=== PATIENT | female | born 1955 | race Caucasian/White ===

== ENCOUNTER → 2018-03-01 14:35 | Outpatient (CLI) | payer MEDICARE, MEDICAID, SELFPAY ==
[2018-03-01 16:10] LABS: Free T4 (Free Thyroxine) 1.41 ng/dl (0.76-1.46)
[2018-03-01 16:27] LABS: Thyroid Stimulating Hormone < 0.01 uIU/ml (0.358-3.740)
[2018-03-04 06:25] LABS: Thyroid Peroxidase Antibodies 26 IU/mL (0-34)
[2018-03-04 15:24] LABS: Thyroid Stimulating Immunoglob 1.42 IU/L (0.00-0.55)
== END ==
PROVIDERS: Visit Provider Otolaryngology
DX: E04.1 Nontoxic single thyroid nodule (principal); E03.9 Hypothyroidism, unspecified
CPT/HCPCS: 36415; 83520; 84439; 84443; 86376

== ENCOUNTER → 2018-09-10 10:38 | Outpatient (CLI) | payer MEDICARE, SELFPAY ==
--- NOTE | 2018-09-10 10:42 | US_ITS ---
US thyroid HISTORY: Follow-up thyroid nodules ITS.REASON: goiter ORDERING PHYSICIAN: Faraz Velasco MD PATIENT AGE: 63 years Comparison: None FINDINGS: There are no previous exams available for comparison at this institution Right lobe: 4.3 x 1.5 x 1.3 cm Nodule A: 3 mm hypoechoic nodule in the mid polar region Nodule B: 5 x 5 mm isoechoic area in the lower pole with a thin hypoechoic rim. Left lobe: 3.8 x 1.3 x 1.2 cm IMPRESSION: There are 2 small nodules on the right which have low level of suspicion of malignancy.
[2018-09-10 14:00] LABS: Free T4 (Free Thyroxine) 1.06 ng/dl (0.76-1.46); Thyroid Stimulating Hormone 0.42 uIU/ml (0.358-3.740)
== END ==
PROVIDERS: PCP Nurse Practitioner Family; Visit Provider Otolaryngology
DX: E03.9 Hypothyroidism, unspecified (principal); E04.1 Nontoxic single thyroid nodule; E04.9 Nontoxic goiter, unspecified
CPT/HCPCS: 36415; 76536; 84439; 84443

== ENCOUNTER → 2019-07-08 09:51 | Outpatient (CLI) | payer MEDICARE, SELFPAY ==
--- NOTE | 2019-07-08 09:58 | MM_ITS ---
PROCEDURE: MM DIG SCREENING MAMM BI W/CAD CLINICAL INDICATION: SCREENING There is no personal or family history of breast cancer. There has been a previous biopsy left breast for benign disease. COMPARISON: MAMMO SCREENING DIGITAL BILAT from 10/24/2014 MAMMO SCREENING DIGITAL BILAT from 11/09/2015 TECHNIQUE: Standard CC and MLO images were obtained. R2 CAD reviewed. FINDINGS: The breasts are composed primarily of fat with minimal fibroglandular elements in the subareolar regions of each breast. There is no new or suspicious lesion in either breast and no suspicious microcalcifications. IMPRESSION: Fatty type breast parenchyma with no suspicious lesions seen BI-RAD Category: 1 Negative FOLLOW-UP: 1YR 1 Year Follow-up (A letter has been sent to the patient regarding results of the study.) Dictated by: Dr. Randolph Reno MD 07/15/2019 08:[address] Randolph Reno MD in [place] 07/15/2019 08:22
--- NOTE | 2019-07-08 10:34 | US_ITS ---
PROCEDURE: US THYROID CLINICAL INDICATION: FU THYROID NODULE Follow-up thyroid nodule COMPARISON: THY US thyroid from 09/10/2018 FINDINGS: Right lobe: 3.8 x 1.3 x 1.5 cm. No discrete nodule evident. Previously noted hypoechoic nodule in the mid upper pole region is not apparent on today's images Left lobe: 3.6 x 1.6 x 1.3 cm. No discrete nodule evident. Isthmus: Unremarkable Additional findings: IMPRESSION: Unremarkable thyroid ultrasound. Previously noted nodules on the right are no longer apparent Dictated by: Tom Knight MD 07/08/2019 18:17 Electronically signed by Tom Knight MD in [facility] 07/08/2019 18:17
== END ==
PROVIDERS: PCP Nurse Practitioner Family; Visit Provider Nurse Practitioner Family
DX: Z12.31 Encounter for screening mammogram for malignant neoplasm of breast (principal); E04.1 Nontoxic single thyroid nodule
CPT/HCPCS: 76536; 77067

== ENCOUNTER → 2020-05-11 16:09 | Outpatient (CLI) | payer MEDICARE, SELFPAY | PROVIDERS: Visit Provider Urology | DX: N39.0 Urinary tract infection, site not specified (principal) | CPT/HCPCS: 87086; 87088; 87186 ==

== ENCOUNTER → 2020-11-23 07:47 | Outpatient (CLI) | payer MEDICARE, SELFPAY ==
--- NOTE | 2020-11-23 07:50 | MM_ITS ---
PROCEDURE: MM DIG SCREENING MAMM BI W/CAD Digital Breast Tomosynthesis Included CLINICAL INDICATION: SCREENING There is no personal or family history of breast cancer. There has been a previous biopsy left breast for benign disease. COMPARISON: MG MAMMO SCREENING DIGITAL BILAT from 10/24/2014 MG MAMMO SCREENING DIGITAL BILAT from 11/09/2015 MG MM DIG SCREENING MAMM BI W/CAD from 07/08/2019 TECHNIQUE: Standard CC and MLO images and 3D Tomosynthesis was obtained. R2 CAD reviewed. FINDINGS: Scattered fibroglandular densities are seen in both breasts. The findings are bilateral and symmetrical except for minimal stable asymmetric glandular elements deep to the nipple right breast. There are no CAD markings. There are stable small nodes in both axilla. There is no suspicious lesion and no suspicious microcalcifications. IMPRESSION: Fibrofatty parenchyma with no suspicious lesions seen BI-RAD Category: 1 Negative FOLLOW-UP: 1YR 1 Year Follow-up (A letter has been sent to the patient regarding results of the study.) Dictated by: Dr. Randolph Reno MD 11/26/2020 08:32 Dr. Randolph Reno MD in [place] 11/26/2020 08:32
== END ==
PROVIDERS: PCP Nurse Practitioner Family; Visit Provider Nurse Practitioner Family
DX: Z12.31 Encounter for screening mammogram for malignant neoplasm of breast (principal)
CPT/HCPCS: 77063; 77067

== ENCOUNTER → 2021-03-01 09:24 | Outpatient (CLI) | payer MEDICARE, SELFPAY ==
--- NOTE | 2021-03-01 09:28 | XR_ITS ---
PROCEDURE: XR CHEST 2V CLINICAL HISTORY: COPD W/ ACUTE EXACERBATION COMPARISON: No exams were available for comparison FINDINGS: The cardiomediastinal silhouette and pulmonary vascularity are within normal limits. The lungs are clear without infiltrates, suspicious nodules, or pleural effusions. Mild mid thoracic kyphosis with degenerative changes in the thoracic spine. IMPRESSION: No acute findings. Dictated by: Tom Knight MD 03/01/2021 09:52 Tom Knight MD in [facility] 03/01/2021 09:52
== END ==
PROVIDERS: PCP Nurse Practitioner Family; Visit Provider Nurse Practitioner
DX: J44.1 Chronic obstructive pulmonary disease with (acute) exacerbation (principal)
CPT/HCPCS: 71046

== ENCOUNTER → 2021-07-01 14:24 | Outpatient (CLI) | payer BC, SELFPAY ==
--- NOTE | 2021-07-01 14:50 | CT_ITS ---
PROCEDURE: CT ABDOMEN W CON CLINICAL HISTORY: ACUTE PYELONEPHRITIS COMPARISON: No exams were available for comparison TECHNIQUE: Axial images obtained with sagittal and coronal reformats. All CT scans at the facility use one or more dose reduction, viz: automated exposure control, ma/kV adjustment per patient size (including targeted exams where dose is matched to indication, i.e. head), or iterative reconstruction technique. FINDINGS: Aortic valve calcifications are present. Lung bases are clear. There has been a prior cholecystectomy. There is biliary dilatation of the intra and extrahepatic biliary radicles. No focal liver lesion is evident. The spleen, adrenal glands, and pancreas have an unremarkable appearance. No renal or ureteral calculi. There is some ectasia of the right renal collecting system and ureter. There is vague decreased attenuation in the upper pole of the left kidney. This is nonspecific and could be related to pyelonephritis. No renal abscess is evident. No abnormal perinephric fluid collection. Small left Sola aortic lymph node is present measuring 1.4 cm There is mild thickening of the gastric fundus and body of the stomach possibly due to nondistention. No intestinal obstruction or free air is evident. Bowel gas pattern is nonspecific. No evidence of appendicitis. There is diffuse colonic diverticulosis of the descending and sigmoid colon. No evidence of diverticulitis. The urinary bladder has an unremarkable appearance. There has been a prior hysterectomy. No pelvic mass or abnormal fluid collection. There is degenerative disc disease at L5-S1 with retrolisthesis of L5 of 4 mm with bulging disc. IMPRESSION: No renal or ureteral calculi. Mild ectasia of the right renal collecting system. Vague decreased attenuation in the upper pole of the left kidney possibly due to pyelonephritis. No renal abscess Dictated by: Tom Knight MD 07/01/2021 16:32 Tom Knight MD in [place] 07/01/2021 16:32
[2021-07-01 14:54] LABS: Basophils % 0.6 % (0.1-2.0); Eosinophils # 0.1 K/mm3 (0.0-0.4); Eosinophils % 2.1 % (0.1-12.0); Hematocrit 32.6 % (37.0-47.0); Hemoglobin 10.6 g/dL (12.2-16.2); Lymphocytes # 2.1 K/mm3 (0.7-4.5); Lymphocytes % 29.9 % (10-50); Mean Corpuscular HGB Conc 32.6 g/dL (31.8-35.4); Mean Corpuscular Hemoglobin 28.8 pg (27.0-31.2); Mean Corpuscular Volume 88.5 fl (81-99); Mean Platelet Volume 9.2 fl (7.4-10.4); Monocytes # 0.5 K/mm3 (0.1-1.0); Monocytes % 7.2 % (1.7-9.3); Neutrophils # 4.3 K/mm3 (1.8-7.8); Neutrophils % 60.2 % (37.0-80.0); Platelet Count 260 K/mm3 (142-424); Red Blood Count 3.69 M/mm3 (4.20-5.40); White Blood Count 7.1 K/mm3 (4.8-10.8)
[2021-07-01 15:16] LABS: Alanine Aminotransferase 17 U/L (12-78); Albumin Level 3.7 g/dl (3.5-5.0); Albumin/Globulin Ratio 1.1 (1.1-1.8); Alkaline Phosphatase 113 U/L (38-126); Anion Gap 8.8 mEq/L (5-15); Aspartate Amino Transferase 28 U/L (14-36); Bilirubin,Total 0.4 mg/dl (0.2-1.3); Blood Urea Nitrogen 11 mg/dl (7-17); Calcium 8.2 mg/dl (8.4-10.2); Carbon Dioxide 33 mmol/L (22.0-30.0); Chloride 95 mmol/L (98-107); Estimated Glomerular Filt Rate 45 ml/min (>60); GFR (African American) 54 ML/MIN (>60); Globulin 3.5 g/dL (1.3-3.2); Glucose 112 mg/dl (74-100); Sodium 134 mmol/L (136-145); Total Protein,Serum 7.2 g/dl (6.3-8.2)
[2021-07-01 15:24] LABS: Potassium 2.8 mmoL/L (3.5-5.1)
== END ==
PROVIDERS: Visit Provider Nurse Practitioner Family
DX: N10 Acute pyelonephritis (principal)
CPT/HCPCS: 36415; 74160; 80053; 85025; Q9967

== ENCOUNTER → 2021-12-03 10:39 | Outpatient (CLI) | payer MEDICARE, SELFPAY ==
--- NOTE | 2021-12-03 10:44 | MM_ITS ---
PROCEDURE INFORMATION: Exam: MG Bilateral Screening 3D Mammography Exam date and time: 12/03/2021 10:44 AM Age: 66 years old Clinical indication: Encounter for screening mammogram for malignant neoplasm of breast. No family history of breast cancer. History of left benign excisional biopsy. TECHNIQUE: Imaging protocol: Bilateral Screening tomosynthesis and 2D mammography including computer-aided detection (CAD) when performed. COMPARISON: No relevant prior studies available. Prior mammogram reports, not images, from 11/26/2020 and 07/15/2019 are provided. Every attempt should be made to obtain prior mammograms for comparison. If/when these prior mammograms become available, an addendum will be made, if necessary. FINDINGS: MAMMOGRAPHY: Breast composition: The breast tissue is composed of scattered areas of fibroglandular density. Mass: None. Architectural distortion: None. Calcifications: No suspicious calcifications. Asymmetric density: None. Skin thickening: None. Axillary adenopathy: None. IMPRESSION: No mammographic evidence of malignancy. Annual screening is recommended unless otherwise clinically indicated. ASSESSMENT: BI-RADS Category 1: Negative
== END ==
PROVIDERS: PCP Nurse Practitioner Family; Visit Provider Nurse Practitioner Family
DX: Z12.31 Encounter for screening mammogram for malignant neoplasm of breast (principal)
CPT/HCPCS: 77063; 77067

== ENCOUNTER → 2022-02-04 08:33 | Outpatient (POV) | payer MEDICARE, SELFPAY | PROVIDERS: Visit Provider Dermatology | DX: Z00.00 Encounter for general adult medical examination without abnormal findings (principal) ==

== ENCOUNTER → 2022-02-17 10:33 | Outpatient (CLI) | payer MEDICARE, SELFPAY ==
--- NOTE | 2022-02-17 10:37 | MR_ITS ---
FINAL REPORT TECHNIQUE: Multiplanar and multisequence imaging of the lumbar spine was obtained without contrast. CLINICAL HISTORY: SPINAL STENOSIS. PRIOR HX LUMBAR SURGERY 5-6YEARS AGO. LBP WORSE ON LT SIDE. LT LEG PAIN X1YR. FINDINGS: There is normal alignment of the lumbar vertebral bodies. Vertebral body height is preserved. The spinal cord ends at the level of L2. There is normal signal intensity within the substance of the distal spinal cord. Bone marrow signal intensity is normal. No acute paraspinal abnormality is identified. L1-2: There is no focal disc herniation, central canal stenosis or neuroforaminal narrowing. L2-3: There is no focal disc herniation, central canal stenosis or neuroforaminal narrowing. L3-4: Mild disc osteophyte complex with mild left neural foraminal narrowing. L4-5: Small central disc protrusion with mild central canal stenosis superimposed on disc osteophyte complex. There is mild, left greater than right neural foraminal narrowing. L5-S1: Broad-based disc osteophyte complex with mild central canal stenosis. There is severe, right greater than left neural foraminal narrowing. IMPRESSION: Degenerative disc disease most pronounced at L5-S1. Small central disc protrusion L4-5. Reviewed, Interpreted and Dictated by Gabby Garnett MD Transcribed by Susan Park Authenticated by Gabby Garnett MD on 02/17/2022 02:25:35 PM [facility]
== END ==
PROVIDERS: PCP Nurse Practitioner Family; Visit Provider Nurse Practitioner Family
DX: M48.062 Spinal stenosis, lumbar region with neurogenic claudication (principal)
CPT/HCPCS: 72148; 76376

== ENCOUNTER → 2022-12-04 13:00 | Outpatient (CLI) | payer MEDICARE, SELFPAY ==
--- NOTE | 2022-12-04 13:04 | MM_ITS ---
PROCEDURE INFORMATION: Exam: MG Bilateral Screening 3D Mammography Exam date and time: 12/04/2022 1:28 PM Age: 67 years old Clinical indication: Screening examination. History of benign left excisional biopsy. TECHNIQUE: Imaging protocol: Bilateral Screening tomosynthesis and 2D mammography including computer-aided detection (CAD) when performed. COMPARISON: 1. MG MM DIG SCREENING MAMM BI W/CAD 12/03/2021 10:43 AM 2. MG MM DIG SCREENING MAMM BI W/CAD 11/23/2020 8:06 AM 3. MG MM DIG SCREENING MAMM BI W/CAD 07/08/2019 10:19 AM 4. MG MAMMO SCREENING DIGITAL BILAT 11/09/2015 3:33 PM FINDINGS: MAMMOGRAPHY: Breast composition: There are scattered areas of fibroglandular density. Mass: No suspicious mass. Architectural distortion: None. Calcifications: No suspicious calcifications. Asymmetric density: None. Skin thickening: None. Axillary adenopathy: None. IMPRESSION: No mammographic evidence of malignancy. Annual screening is recommended unless otherwise clinically indicated. ASSESSMENT: BI-RADS Category 1: Negative
== END ==
PROVIDERS: PCP Nurse Practitioner Family; Visit Provider Nurse Practitioner Family
DX: Z12.31 Encounter for screening mammogram for malignant neoplasm of breast (principal)
CPT/HCPCS: 77063; 77067

== ENCOUNTER → 2023-02-03 12:36 | Outpatient (CLI) | payer MEDICARE, SELFPAY ==
--- NOTE | 2023-02-03 12:38 | CT_ITS ---
FINAL REPORT TECHNIQUE: Axial images were obtained from the lung apex to the mid abdomen by computed tomography. This study was performed with techniques to keep radiation doses as low as reasonably achievable (ALARA). Individualized dose reduction techniques using automated exposure control or adjustment of mA and/or kV according to the patient's size were employed. CLINICAL HISTORY: H/O TOBACCO USE CURRENT SMOKER 1PPD X50 YEARS FINDINGS: CHEST CT LOW DOSE CTDI vol (mGy): 2.90 DLP (mGy-cm): 101.34 There is no axillary adenopathy. There is no hilar or mediastinal adenopathy. The heart is normal in size. There is no pericardial or pleural effusion. Lung window images demonstrate no suspicious infiltrate or nodule. Note is made of mild emphysematous changes. Limited images of the upper abdomen are unremarkable. IMPRESSION: Lung RADS category 1. Recommend 12 month follow-up low-dose chest CT. Reviewed, Interpreted and Dictated by Ashley Alatorre MD Transcribed by Keisha Reveles Authenticated and [facility]
== END ==
PROVIDERS: PCP Nurse Practitioner Family; Visit Provider Nurse Practitioner Family
DX: Z87.891 Personal history of nicotine dependence (principal); Z12.2 Encounter for screening for malignant neoplasm of respiratory organs
CPT/HCPCS: 71271

== ENCOUNTER → 2023-06-30 07:27 | Outpatient (CLI) | payer MEDICARE, SELFPAY ==
--- NOTE | 2023-06-30 | CA_ITS ---
APPROVED REPORT Exam: Pharmacologic Technologist: Bharati Schrader, Ht: 5 ft 2 in Wt: 170 lbs BSA: 1.78 m2 HR: 72 bpm BP: 180/67 mmHg Rhythm: SINUS RHYTHM Indications: Bradycardia Medical History Medical History: HTN Medications: Omeprazole,,,,, Metoprolol,,,,, Atorvastatin,,,,, Valsartan,,,,, Vitamin D,,,,, FluTICASONE,,,,, Furosemide,,,,, Cardiac Risk Factors: HTN, Smoking Stress Test Details Test: DOBUTAMINE HR Resting HR: 73 bpm Max Heart Rate (APMHR): 150 bpm Max HR Achieved: 128 bpm Target HR (85% APMHR): 128 bpm % of APMHR: 85 Recovery HR: 114 bpm BP Resting BP: 180/67 mmHg Max BP: 211/83 mmHg Recovery BP: 186.0/59.0 mmHg ECG Resting ECG: SINUS RHYTHM Stress EC MM ST DEPRESSION Arrhythmia: PACs, PVCs Medications Administered Dobutamine (50.0 mg at ) Clinical Exercise duration: 26:25 min Highest Stage Achieved: Exercise capacity: 1.0 METs Stress ECG Conclusion 50 MG OF DOBUTAMINE WAS INFUSED OVER 15 MINUTES. PEAK INFUSIN RATE 50 MCG/KG/MIN. MAX HEART RATE 128 BPM WHICH IS 85% OF PM FOR AGE. MAX BP 211/83. PATIENT HAD RACING HEAERT WITH PVC'S AND PAC'S. AT PEAK STRESS, THERE WAS 1MM ST DEPRESSION NOTED CONCLUSION ABNORMAL EKG RESPONSE TO DOBUTAMINE. STRESS ECHO IMAGES ARE REPORTED SEPARATELY. Test Summary REST . . . . . . . Resting REST 18:06 . . 73 . 180/ 67 . . Stage 1 . . . . . . . Stage held Stage 1 01:00 . . 74 . . . . Stage 1 . . . . . . . Stage resumed Stage 1 02:00 . . 72 . . . . Stage 1 03:00 . . 75 . . . . Stage 2 01:00 . . 77 . . . . Stage 2 02:00 . . 77 . . . . Stage 2 03:00 . . 80 . 211/ 83 . . Stage 3 01:00 . . 77 . . . . Stage 3 02:00 . . 79 . . . . Stage 3 03:00 . . 79 . 204/ 79 . . Stage 4 01:00 . . 85 . . . . Stage 4 02:00 . . 87 . . . . Stage 4 03:00 . . 91 . . . . Stage 5 01:00 . . 98 . . . . Stage 5 02:00 . . 107 . . . . Stage 5 03:00 . . 112 . 186/ 59 . . Stage 5 04:00 . . 115 . 155/ 60 . . Stage 5 05:00 . . 121 . 155/ 60 . . Stage 5 06:00 . . 125 . 155/ 60 . . Stage 5 07:00 . . 122 . 155/ 60 . . Stage 5 08:00 . . 116 . 155/ 60 . . Stage 5 09:00 . . 116 . 151/ 51 . . Stage 5 10:00 . . 109 . 151/ 51 . . Stage 5 11:00 . . 122 . 151/ 51 . . Stage 5 12:00 . . 112 . 151/ 51 . . Stage 5 13:00 . . 115 . 151/ 51 . . Stage 5 14:00 . . 117 . 151/ 51 . . Stage 5 14:25 . . 116 . 151/ 51 . Stop exercise at 26:25 RECOVERY 01:00 . . 115 . . . . RECOVERY 02:00 . . 120 . 91/ 45 . . RECOVERY 03:00 . . 107 . 91/ 45 . . RECOVERY 04:00 . . 116 . 95/ 49 . . RECOVERY 05:00 . . 101 . 104/ 39 . . RECOVERY 06:00 . . 106 . 104/ 39 . . RECOVERY 07:00 . . 100 . 104/ 39 . . RECOVERY 08:00 . . 101 . 104/ 39 . . RECOVERY 09:00 . . 97 . 104/ 39 . . RECOVERY 10:00 . . 97 . 104/ 39 . . RECOVERY 11:00 . . 91 . 108/ 47 . . RECOVERY 12:00 . . 91 . 108/ 47 . . RECOVERY 13:00 . . 91 . 108/ 47 . . RECOVERY 14:00 . . 86 . 108/ 47 . . RECOVERY 15:00 . . 82 . 108/ 47 . . RECOVERY 16:00 . . 87 . 108/ 47 . . RECOVERY 17:00 . . 85 . 108/ 47 . . RECOVERY 18:00 . . 82 . 108/ 47 . . RECOVERY 19:00 . . 86 . 106/ 50 . . RECOVERY 20:00 . . 83 . 106/ 50 . . RECOVERY 21:00 . . 80 . 106/ 50 . . RECOVERY 22:00 . . 76 . 106/ 50 . . RECOVERY 23:00 . . 79 . 114/ 53 . . RECOVERY 24:00 . . 82 . 114/ 53 . . RECOVERY 25:00 . . 78 . 131/ 53 . . RECOVERY 26:00 . . 80 . 131/ 53 . . RECOVERY 27:00 . . 79 . 131/ 53 . . RECOVERY 28:00 . . 77 . 131/ 53 . . RECOVERY 29:00 . . 77 . 131/ 53 . . RECOVERY 30:00 . . 76 . 131/ 53 . . RECOVERY 31:00 . . 76 . 130/ 55 . . RECOVERY 32:00 . . 77 . 130/ 55 . . RECOVERY 33:00 . . 81 . 130/ 55 . . RECOVERY 34:00 . . 86 . 144/ 72 . . Electronically signed by : May Solorzano MD 06/30
--- NOTE | 2023-06-30 | CA_ITS ---
APPROVED REPORT EXAM: Comprehensive 2D, Doppler, and color-flow Echocardiogram Agronomy Research Manager: RT Eliza(R) Ht: 5 ft 2 in Wt: 170lbs BSA: 1.78 BP: 142/73 mmHg Rhythm: NSR Indications: bradycardia, smoker, HTN, hyperlipidemia, GERD Echo Procedure The patient underwent a Pharmacological Stress Test using Dobutamine. Blood pressure, heart rate, and EKG were monitored. An Echocardiogram was performed by trace evidence technician in four stages in quad fashion. At peak stress, four selected images were obtained and placed side by side with resting images for comparison. Stress Test Details Test: Dobutamine stress echo HR Resting HR: 77 bpm Max Heart Rate (APMHR): 150 bpm Max HR Achieved: 128 bpm Target HR (85% APMHR): 128 bpm % of APMHR: 85 HR response to stress: Normal HR response to stress BP Resting BP: 180/67 mmHg Max BP: 211/83 mmHg BP response to stress: Abnormal hypertensive response to stress. ECG Resting ECG: Normal sinus rhythm Stress EC mm ST depression Arrhythmia: PACs, PVCs Echo Findings The Pre-Stress Echocardiogram showed normal left ventricular contractility with an estimated Ejection Fraction of about 55%. The Pre-Stress Echocardiogram demonstrated wall motion abnormality in the anterior, anteroseptal, anterolateral swain. The Post-Stress Echocardiogram showed normal left ventricular contractility with an estimated Ejection Fraction of about 60-65%. The Post-Stress Echocardiogram demonstrated wall motion abnormality in the anterior, anteroseptal, anterolateral swain, wiith further exaggeration in severity of wall motion abnormality. Other Information Study Quality: Adequate Conclusion ECG at baseline and after dobutamine infusion showed normal sinus rhythm. At peak stress, there was [address] depression present. Baseline TTE showed normal LV systolic function (LVEF 55%). At peak stress, there was good augmentation of LV systolic function (LVEF 60-65%). At peak stress, there was exaggeration of baseline hypokinesis of the anterior, anterolateral, and anteroseptal LV swain. Findings are suggestive of possible ischemia. Electronically signed by : May Solorzano MD 06/30/2023 19:40:50
== END ==
PROVIDERS: PCP Nurse Practitioner Family; Visit Provider Nurse Practitioner Family
DX: R00.1 Bradycardia, unspecified (principal); I10 Essential (primary) hypertension; E78.5 Hyperlipidemia, unspecified; K21.9 Gastro-esophageal reflux disease without esophagitis; Z72.0 Tobacco use; I25.10 Atherosclerotic heart disease of native coronary artery without angina pectoris
CPT/HCPCS: 93017; 93350

== ENCOUNTER 2023-08-10 07:47 | Day surgery (SDC) | payer MEDICARE, SELFPAY ==
[2023-08-10] VITALS (13 sets, daily range): BP systolic 135–177; BP diastolic 62–83; PULSE 52–65; RESP 16–20; TEMP 36.9; O2SAT 94–100; BMI 31.6
--- NOTE | 2023-08-10 07:12 | IR_ITS ---
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 COMPLICATIONS None Estimated Blood Loss: Less than 10 ML TECHNIQUE One percent lidocaine used to anesthetize the right anterior aspect of the wrist. The right radial artery was accessed via the Seldinger technique. A 6 Lao sheath was placed in the right radial artery. 2.5 mg of Verapamil, 800 mcg of nitroglycerin, 1mg Lidocaine and 5000 U Heparin were given through the arterial sheath. The papa catheter was also used to perform left heart catheterization, left ventriculogram and selective coronary angiogram. The Poppa catheter was used to perform bilateral selective renal angiography at the end of the procedure the sheath was removed good hemostasis was achieved using Traclet band, patient was transferred to the postop holding area in stable condition. ANGIOGRAPHIC RESULTS The left main artery Normal The left anterior descending artery Angiographically normal The circumflex artery Large dominant and normal The right coronary artery Nondominant and normal The THOMPSON ventriculogram reveals Normal 65% The left ventricular end-diastolic pressure 10 to 15 mmHg Left renal artery singular and originates off the aorta and is angiographically normal Right renal artery singular and originates off the superior mesenteric artery and is angiographically normal IMPRESSION Normal coronary arteries Normal ejection fraction Normal left ventricular end-diastolic pressure 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 Medical management Electronically signed by : Andrea Hill MD 08/10/2023 10:06:01
[2023-08-10 08:39] LABS: Basophils # 0.1 K/mm3 (0-0.2); Basophils % 0.8 % (0.1-2.0); Eosinophils # 0.2 K/mm3 (0.0-0.4); Eosinophils % 2.5 % (0.1-12.0); Hematocrit 37.7 % (37.0-47.0); Hemoglobin 12.4 g/dL (12.2-16.2); Lymphocytes # 1.8 K/mm3 (0.7-4.5); Lymphocytes % 24.7 % (10-50); Mean Corpuscular HGB Conc 32.8 g/dL (31.8-35.4); Mean Corpuscular Hemoglobin 28.8 pg (27.0-31.2); Mean Corpuscular Volume 87.8 fl (81-99); Mean Platelet Volume 7.9 fl (7.4-10.4); Monocytes # 0.6 K/mm3 (0.1-1.0); Monocytes % 7.8 % (1.7-9.3); Neutrophils # 4.6 K/mm3 (1.8-7.8); Neutrophils % 64.3 % (37.0-80.0); Platelet Count 331 K/mm3 (142-424); Red Blood Count 4.29 M/mm3 (4.20-5.40); Red Cell Distribution Width 14.4 % (11.5-17.5); White Blood Count 7.2 K/mm3 (4.8-10.8)
[2023-08-10 08:41] LABS: Chloride 103 mmol/L (98-107); Potassium 4.1 mmoL/L (3.5-5.1); Sodium 139 mmol/L (136-145)
[2023-08-10 08:44] LABS: Blood Urea Nitrogen 20 mg/dl (7-17); Creatinine Clearance Estimated 50 mL/min (50-200); Estimated Glomerular Filt Rate 40 ml/min (>60); GFR (African American) 49 ML/MIN (>60)
[2023-08-10 08:45] LABS: Anion Gap 12.1 mEq/L (5-15); Calcium 8.7 mg/dl (8.4-10.2); Carbon Dioxide 28 mmol/L (22.0-30.0); Glucose 95 mg/dl (74-100)
== END 2023-08-10 12:51 | disposition home or self-care (01) ==
PROVIDERS: PCP Nurse Practitioner Family; Visit Provider Internal Medicine
DX: F17.210 Nicotine dependence, cigarettes, uncomplicated (principal); I15.0 Renovascular hypertension; I20.89 Other forms of angina pectoris; R94.39 Abnormal result of other cardiovascular function study; Z82.49 Family history of ischemic heart disease and other diseases of the circulatory system; I70.1 Atherosclerosis of renal artery; Z79.899 Other long term (current) drug therapy; I10 Essential (primary) hypertension
CPT/HCPCS: 36252; 80048; 85025; 93458; 99152; C1725; C1769; J1644; Q9967

== ENCOUNTER 2023-12-10 09:27 | Outpatient (CLI) | payer MEDICARE, SELFPAY ==
--- NOTE | 2023-12-10 09:31 | MM_ITS ---
PROCEDURE INFORMATION: Exam: MG Bilateral Screening 3D Mammography Exam date and time: 12/10/2023 9:36 AM Age: 68 years old Clinical indication: Screening examination. History of left excisional biopsy. TECHNIQUE: Imaging protocol: Bilateral Screening tomosynthesis and 2D mammography including computer-aided detection (CAD) when performed. COMPARISON: 1. MG MM DIG SCREENING MAMM BI W/CAD 12/04/2022 1:28 PM 2. MG MM DIG SCREENING MAMM BI W/CAD 12/03/2021 10:43 AM 3. MG MM DIG SCREENING MAMM BI W/CAD 11/23/2020 8:06 AM 4. MG MM DIG SCREENING MAMM BI W/CAD 07/08/2019 10:19 AM FINDINGS: MAMMOGRAPHY: Breast composition: There are scattered areas of fibroglandular density. Mass: None. Architectural distortion: None. Calcifications: No suspicious calcifications. Asymmetric density: No developing asymmetry. Skin thickening: None. Axillary adenopathy: None. IMPRESSION: No mammographic evidence of malignancy. Annual screening is recommended unless otherwise clinically indicated. ASSESSMENT: BI-RADS Category 1: Negative
== END 2023-12-10 23:59 ==
LOC: RAD 09:28
PROVIDERS: PCP Nurse Practitioner Family; Visit Provider Nurse Practitioner Family
DX: Z12.31 Encounter for screening mammogram for malignant neoplasm of breast (principal)
CPT/HCPCS: 77063; 77067

== ENCOUNTER 2024-06-01 08:47 | Outpatient (CLI) | payer MEDICARE, SELFPAY ==
[2024-06-01 09:27] LABS: Basophils # 0.1 K/mm3 (0-0.2); Basophils % 0.9 % (0.1-2.0); Eosinophils # 0.3 K/mm3 (0.0-0.4); Eosinophils % 3.7 % (0.1-12.0); Hematocrit 38.4 % (37.0-47.0); Hemoglobin 12.2 g/dL (12.2-16.2); Lymphocytes # 2.1 K/mm3 (0.7-4.5); Lymphocytes % 29.4 % (10-50); Mean Corpuscular HGB Conc 31.9 g/dL (31.8-35.4); Mean Corpuscular Hemoglobin 30.3 pg (27.0-31.2); Mean Platelet Volume 7.8 fl (7.4-10.4); Monocytes # 0.5 K/mm3 (0.1-1.0); Monocytes % 7.1 % (1.7-9.3); Neutrophils # 4.2 K/mm3 (1.8-7.8); Neutrophils % 58.8 % (37.0-80.0); Platelet Count 299 K/mm3 (142-424); Red Blood Count 4.05 M/mm3 (4.20-5.40); Red Cell Distribution Width 13.9 % (11.5-17.5); White Blood Count 7.2 K/mm3 (4.8-10.8)
[2024-06-01 09:43] LABS: Alanine Aminotransferase 33 U/L (12-78); Albumin Level 4.4 g/dl (3.5-5.0); Alkaline Phosphatase 150 U/L (38-126); Aspartate Amino Transferase 30 U/L (14-36); Bilirubin,Direct 0.3 mg/dl (0.0-0.4); Bilirubin,Indirect 0.2 mg/dL (0.0-0.9); Bilirubin,Total 0.5 mg/dl (0.2-1.3); Bilirubin,Unconjugated 0.2 mg/dL (0.0-1.1); Cholesterol 160 mg/dl (140-200); HDL Cholesterol 53 mg/dl (40-60); Total Protein,Serum 7.5 g/dl (6.3-8.2); Triglycerides 110 mg/dl (30-150); VLDL Cholesterol 22 mg/dL (0-40)
[2024-06-01 09:54] LABS: Direct LDL Cholesterol 70.79 mg/dL (100-129)
[2024-06-01 10:13] LABS: Thyroid Stimulating Hormone 0.48 uIU/mL (0.465-4.68)
[2024-06-01 11:30] LABS: Free T4 (Free Thyroxine) 1.52 ng/dl (0.78-2.19)
[2024-06-02 08:43] LABS: Chloride 98 mmol/L (98-107); Sodium 132 mmol/L (136-145)
[2024-06-02 08:44] LABS: Potassium 4.7 mmoL/L (3.5-5.1)
[2024-06-02 08:46] LABS: Anion Gap 18.7 mEq/L (5-15); Blood Urea Nitrogen 17 mg/dl (7-17); Carbon Dioxide 20 mmol/L (22.0-30.0); Estimated Glomerular Filt Rate 44 ml/min (>60); GFR (African American) 54 ML/MIN (>60)
[2024-06-02 08:47] LABS: Calcium 8.9 mg/dl (8.4-10.2); Glucose 81 mg/dl (74-100)
== END 2024-06-01 23:59 | disposition home or self-care (01) ==
LOC: LAB 08:48
PROVIDERS: PCP Nurse Practitioner Family; Visit Provider Nurse Practitioner
DX: R60.9 Edema, unspecified (principal); N18.9 Chronic kidney disease, unspecified; F17.200 Nicotine dependence, unspecified, uncomplicated; I10 Essential (primary) hypertension; E78.2 Mixed hyperlipidemia
CPT/HCPCS: 36415; 80048; 80061; 80076; 83735; 84439; 84443; 85025

== ENCOUNTER 2024-06-09 09:19 | Outpatient (CLI) | payer MEDICARE, SELFPAY ==
[2024-06-09 10:19] LABS: Magnesium 1.5 mg/dl (1.6-2.3)
== END 2024-06-09 23:59 | disposition home or self-care (01) ==
LOC: LAB 09:20
PROVIDERS: PCP Nurse Practitioner Family; Visit Provider Nurse Practitioner
DX: E83.42 Hypomagnesemia (principal)
CPT/HCPCS: 36415; 83735

== ENCOUNTER 2024-06-28 09:34 | Outpatient (CLI) | payer MEDICARE, SELFPAY ==
[2024-06-28 11:52] LABS: Anion Gap 13.1 mEq/L (5-15); Blood Urea Nitrogen 20 mg/dl (7-17); Calcium 9.6 mg/dl (8.4-10.2); Carbon Dioxide 24 mmol/L (22.0-30.0); Chloride 98 mmol/L (98-107); Estimated Glomerular Filt Rate 37 ml/min (>60); GFR (African American) 45 ML/MIN (>60); Glucose 87 mg/dl (74-100); Magnesium 1.4 mg/dl (1.6-2.3); Potassium 4.1 mmoL/L (3.5-5.1); Sodium 131 mmol/L (136-145)
== END 2024-06-28 23:59 | disposition home or self-care (01) ==
LOC: LAB 09:37
PROVIDERS: PCP Nurse Practitioner Family; Visit Provider Physician Assistant
DX: E83.42 Hypomagnesemia (principal)
CPT/HCPCS: 36415; 80048; 83735

== ENCOUNTER 2024-08-12 06:20 | Outpatient (CLI) | payer MEDICARE, SELFPAY ==
--- NOTE | 2024-08-12 06:35 | CT_ITS ---
FINAL REPORT TECHNIQUE: Thin section axial images were obtained from the lung apices to the upper abdomen by computed tomography. Reformatted images were obtained and reviewed. This study was performed with techniques to keep radiation doses al low as reasonably achievable (ALARA). Individualized dose reduction techniques using automated exposure control or adjustment of mA and/or kV according to the patient's size were employed. CLINICAL HISTORY: CURRENT SMOKER 1PPD X50+ YEARS COMPARISON: 02/03/2023 FINDINGS: CHEST CT LOW DOSE CTDI vol (mGy): 2.90 DLP (mGy-cm): 96.38 There is no axillary adenopathy. A borderline precarinal lymph node is noted. There are moderate left coronary artery calcifications.. The heart is normal in size. There is no pericardial or pleural effusion. There is mild emphysema and mild pulmonary scarring. Lung window images demonstrate no suspicious infiltrate or nodule. There is a calcified granuloma in the right lung base. Limited images of the upper abdomen demonstrate postoperative changes from cholecystectomy. IMPRESSION: Lung-RADS category 1. Recommend 12 month follow up low dose chest CT. Reviewed, Interpreted and Dictated by Michi Read III, MD Transcribed by Isabelle Mckinley Authenticated and [facility]
== END 2024-08-12 23:59 | disposition home or self-care (01) ==
LOC: RAD 06:20
PROVIDERS: PCP Nurse Practitioner Family; Visit Provider Nurse Practitioner Family
DX: F17.210 Nicotine dependence, cigarettes, uncomplicated (principal); Z12.2 Encounter for screening for malignant neoplasm of respiratory organs
CPT/HCPCS: 71271

== ENCOUNTER 2024-12-14 08:44 | Outpatient (CLI) | payer MEDICARE, SELFPAY ==
--- NOTE | 2024-12-14 08:47 | XR_ITS ---
FINAL REPORT CLINICAL HISTORY: Osteoporosis screening COMPARISON: None FINDINGS: Using L1-4, the bone mineral density of the spine is 0.881 g/cm2, corresponding to T-score of -1.5, compatible with osteopenia. Using the left hip, the bone mineral density of the femoral neck is 0.723 g/cm2, corresponding to a T-score of -1.8, compatible with osteopenia. Using the right hip, the bone mineral density of the femoral neck is 0.655 g/cm2, corresponding to a T-score of -1.7, compatible with osteopenia. FRAX 10 year fracture risk is 9.3% for a hip fracture and 20% for a major osteoporotic fracture. NOTE: T-score: Standard deviation compared with peak bone mass of young adult mean. *Following the recommendations of the International Society of Bone densitometry, classification of hip BMD is based on the lower of two T-scores; total hip or femoral neck. IMPRESSION: Diminished bone mineral density consistent with osteopenia. Reviewed, Interpreted and Dictated by Ashley Alatorre MD Transcribed by Nery Booker Authenticated and [facility]
--- NOTE | 2024-12-14 08:47 | MM_ITS ---
PROCEDURE INFORMATION: Exam: MG Bilateral Screening 3D Mammography Exam date and time: 12/14/2024 8:54 AM Age: 69 years old Clinical indication: Screening examination TECHNIQUE: Imaging protocol: Bilateral Screening tomosynthesis and 2D mammography including computer-aided detection (CAD) when performed. COMPARISON: 1. MG MM DIG SCREENING MAMM BI W/CAD 12/10/2023 9:36 AM 2. MG MM DIG SCREENING MAMM BI W/CAD 12/04/2022 1:28 PM FINDINGS: MAMMOGRAPHY: Breast composition: There are scattered areas of fibroglandular density. Mass: No suspicious masses. Architectural distortion: None. Calcifications: No suspicious calcifications. Asymmetric density: None. Skin thickening: None. Axillary adenopathy: None. IMPRESSION: No mammographic evidence of malignancy. Annual screening is recommended unless otherwise clinically indicated. ASSESSMENT: BI-RADS Category 1: Negative.
== END 2024-12-14 23:59 | disposition home or self-care (01) ==
LOC: RAD 08:45
PROVIDERS: PCP Nurse Practitioner Family; Visit Provider Nurse Practitioner Family
DX: Z12.31 Encounter for screening mammogram for malignant neoplasm of breast (principal); M85.89 Other specified disorders of bone density and structure, multiple sites; Z13.820 Encounter for screening for osteoporosis
CPT/HCPCS: 77063; 77067; 77080

== ENCOUNTER 2025-06-29 09:15 | Day surgery (SDC) | payer MEDICARE, SELFPAY ==
[2025-06-28 10:56] VITALS: BMI 20.8
--- NOTE | 2025-06-28 15:44 | EXP.HP ---
History of Present Illness *Admission Date: 06/29/25 *History of present illness: Mrs. Alberts is a 70-year-old female who is here for diagnostic EGD and colonoscopy. The patient reports dysphagia and odynophagia. She sometimes gets choked on her own saliva. She did have esophageal dilation 10 years ago. The patient reports chronic diarrhea. She was placed on colestipol twice daily and developed some constipation. She is now on magnesium twice daily but this was also causing symptoms of diarrhea. The patient did have a colonoscopy with me in September 2018 and had 2 polyps (benign hyperplastic polyps) removed. The examination is deemed medically necessary for diagnostic EGD and colonoscopy. The patient has been seen, interviewed and examined prior to the procedure by both myself and the anesthesia provider. [facility] Disclaimer: The information contained in this section may have been updated after the patient was seen, as this information can be updated by other users. 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 Hypomagnesemia Edema Hyperlipidemia Anomalous renal arteries Normal coronary arteries Chronic kidney disease Tobacco dependence syndrome Hypertension Surgical History History of cholecystectomy S/P cardiac cath Social History Smoking Status: Current every day smoker tobacco type: cigarettes packs per day: 1 alcohol intake: never substance use type: denies use current occupational status: retired Travel in the last 8 weeks?: None caffeine: Yes Have you lived/traveled outside US in past 30 days?: No Contact w/someone who lives/traveled outside US past 30 days?: No Exposure to someone with infectious disease in past 14 days?: No Do you have a fever (greater than 100.4 F or 38 C)?: No Have you tested positive for COVID-19?: No Exposed to someone with COVID-19 in past 14 days?: No Do you have a sore throat?: No Do you have a cough?: No Do you have any weakness?: No Do you have any diarrhea?: No Are you experiencing any unusual bleeding?: No Do you have any muscle aches/pain?: No Do you have any abdominal pain?: No Are you experiencing loss of taste or smell?: No Other Medical History Have you received the Flu Vaccine for this season: Yes Have you received the Pneumonia Vaccine: Yes Review of Systems Review of Systems Review of systems (narrative): Negative *Cardiovascular Comments: Negative *Gastrointestinal Comments: Negative *Genitourinary Comments: Negative *Musculoskeletal Comments: Negative *Neurologic Comments: Negative Meds Home Medications and Allergies Home Medications ?Medication ?Instructions ?Recorded ?Confirmed ?Type atorvastatin 40 mg tablet 40 mg PO ONCE Cholesterol 03/01/18 06/29/25 History fluticasone propionate 50 1 spray intranasal ONCE allergies 03/01/18 06/29/25 History mcg/actuation nasal spray,suspension (Flonase Allergy Relief) omeprazole 40 mg capsule,delayed 40 mg PO ONCE GERD 03/01/18 06/29/25 History release furosemide 20 mg tablet 40 mg PO ONCE 05/19/24 06/29/25 History metoprolol succinate 100 mg 100 mg PO HS 05/19/24 06/29/25 History tablet,extended release 24 hr nifedipine 90 mg tablet,extended 90 mg PO DAILY 05/19/24 06/29/25 History release cholecalciferol (vitamin D3) 25 400 unit PO DAILY 06/02/24 06/29/25 History mcg (1,000 unit) tablet calcitriol 0.25 mcg capsule 0.25 mcg PO Q OTHER DAY 04/26/25 06/29/25 History colestipol 1 gram tablet 1 g PO NEEDED PRN . 04/26/25 06/29/25 History oxybutynin chloride 5 mg tablet 5 mg PO HS 06/28/25 06/29/25 History spironolactone 25 mg tablet 25 mg PO DAILY 06/28/25 06/29/25 History New Prescriptions to Start Prescriptions: Allergies Allergy/AdvReac Type Severity Reaction Status Date / Time propoxyphene (From Allergy Mild Rash Verified 06/29/25 10:18 [id number] 100) Exam Data for Last 24 hours I & O for Last 24 hours: Intake & Output 06/25/25 06/26/25 06/27/25 06/28/25 23:59 23:59 23:59 23:59 Weight 137 lb *Routine HEENT Exam Head: Present normocephalic Eye: Present EOMI and PERRL ENT: Present mucous membranes moist *Routine Neck Exam Neck: Present supple *Routine Respiratory Exam Respiratory: Present CTA bilaterally *Routine Cardiovascular Exam Cardiovascular: Present RRR *Routine Abdominal Exam Abdominal: Present soft and normoactive bowel sounds; Absent tenderness *Routine Rectal Exam Rectal:: deferred *Routine Genitalia Exam Genitalia:: deferred *Routine Extremities Exam Extremities: Absent cyanosis, clubbing or edema *Routine Skin Exam Skin: Present warm; Absent rash *Routine Neurological Exam Neurological: Present alert and oriented X3 Assessment and Plan *Assessment and plan (1) Dysphagia: Status: Acute Category: Medical Code(s): R13.10 - Dysphagia, unspecified (2) Choking: Status: Acute Category: Medical Code(s): T17.308A - Unspecified foreign body in larynx causing other injury, initial encounter (3) Odynophagia: Status: Acute Category: Medical Code(s): R13.10 - Dysphagia, unspecified (4) Chronic diarrhea: Status: Acute Category: Medical Code(s): K52.9 - Noninfective gastroenteritis and colitis, unspecified Plan A/P: 1. Dysphagia/odynophagia and choking for upper endoscopy and chronic diarrhea for colonoscopy is the preprocedural diagnosis. The patient will be anesthetized/sedated using MAC sedation. The patient has been seen and examined. Cardiac and lung assessment prior to the examination is stable. Proceed with planned diagnostic EGD and colonoscopy.
--- NOTE | 2025-06-29 06:37 | HMH.PROCNOTE ---
[facility] Procedure Note Date: 06/29/25 Time: 11:32 Procedure Note:: Upper Endoscopy Procedure Report: Esophagogastroduodenoscopy with cold biopsies and TTS balloon dilation Endoscopost: Praneeth Key II, MD Referring Physician: JOANNA Carrion Date of Procedure: June 29, 2025 Equipment: Olympus GIF-1100 standard upper endoscope Sedation: MAC sedation Indications: Mrs. Alberts is a 70-year-old female who is here for diagnostic EGD and colonoscopy. The patient reports dysphagia and odynophagia. She sometimes gets choked on her own saliva. She did have esophageal dilation 10 years ago. The patient does report some gassiness, bloating and minor belching. She reports some epigastric abdominal discomfort, early satiety and occasional nausea (i.e. dyspepsia). The patient reports chronic diarrhea. She was placed on colestipol twice daily and developed some constipation. She is now on magnesium twice daily but this was also causing symptoms of diarrhea. The patient did have a colonoscopy with [facility] in September 2018 and had 2 polyps (benign hyperplastic polyps) removed. The patient reports no rectal bleeding, abdominal pain or unintentional weight loss. The examination is deemed medically necessary for diagnostic EGD and colonoscopy. Procedure: Prior to the procedure, a history and physical exam was performed, and patient's medications and allergies were reviewed. The risks, benefits and alternatives of the sedation and procedure were discussed with the patient. All questions were answered and informed consent was obtained. The patient was brought to the procedure room. Patient identification and proposed procedure were verified by the physician and the nurse. The patient was placed in a left lateral decubitus position and the scope was passed under direct vision. Throughout the procedure, the patient's blood pressure, pulse, and oxygen saturations were monitored continuously. The upper GI endoscopy was accomplished without difficulty. The patient tolerated the procedure well. Findings: The scope was passed directly into the upper esophagus and advanced to the third portion of the duodenum. The post bulbar duodenum and duodenal bulb were normal with normal mucosa and conniventes. A cold biopsy was taken from the second portion of the duodenum for the disaccharidase assay. The scope was withdrawn through a normal duodenal bulb and pylorus into the stomach. There was bile reflux with mild linear antral gastropathy. There was some chronic gastritis (with reticular/mosaic pattern suggestive of H. pylori) in the proximal stomach. Cold biopsies were taken along the lesser curvature. Upon retroflexion there was no hiatal hernia. The scope was then withdrawn into the esophagus. There was no evidence of reflux esophagitis or Rollins's. There were tertiary contractions and evidence of mild esophageal dysmotility. 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 The entire esophagus was dilated to 60 Greek/20 mm and there was some resistance at the cricopharyngeus. The remainder of the esophageal mucosa was normal. Impression: 1. 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 Nonerosive GERD with mild esophageal dysmotility 3. Mild chronic gastritis (rule out H. pylori) Plan: I will follow-up the biopsies and disaccharidase assay. The patient does have some functional dyspepsia and GERD with esophageal dysmotility. We will discuss treatment options.
--- NOTE | 2025-06-29 06:38 | HMH.PROCNOTE ---
[facility] Procedure Note Date: 06/29/25 Time: 11:52 Procedure Note:: Colonoscopy Procedure Report: Colonoscopy with cold snare polypectomy and cold biopsies Endoscopist: Praneeth Key II, MD Referring physician: JOANNA Carrion Date of Procedure: June 29, 2025 Equipment: Olympus [id number] adult colonoscope Sedation: MAC sedation Indication: Mrs. Alberts is a 70-year-old female who is here for diagnostic EGD and colonoscopy. The patient reports dysphagia and odynophagia. She sometimes gets choked on her own saliva. She did have esophageal dilation 10 years ago. The patient does report some gassiness, bloating and minor belching. She reports some epigastric abdominal discomfort, early satiety and occasional nausea (i.e. dyspepsia). The patient reports chronic diarrhea. She was placed on colestipol twice daily and developed some constipation. She is now on magnesium twice daily but this was also causing symptoms of diarrhea. The patient did have a colonoscopy with tx in September 2018 and had 2 polyps (benign hyperplastic polyps) removed. The patient reports no rectal bleeding, abdominal pain or unintentional weight loss. The examination is deemed medically necessary for diagnostic EGD and colonoscopy. Procedure: Prior to the procedure, a history and physical exam was performed, and patient's medications and allergies were reviewed. The risks, benefits and alternatives of the sedation and procedure were discussed with the patient. All questions were answered and informed consent was obtained. The patient was brought to the procedure room. Patient identification and proposed procedure were verified by the physician and the nurse. The patient was placed in a left lateral decubitus position and the scope was passed under direct vision. Throughout the procedure, the patient's blood pressure, pulse, and oxygen saturations were monitored continuously. The colonoscopy was accomplished without difficulty. The patient tolerated the procedure well. Findings: On digital rectal examination there was normal rectal tone. There were no external hemorrhoids. The colonoscope was introduced through the anal canal to the rectum and advanced to the cecum. The ileocecal valve and appendiceal orifice were identified. The scope was advanced a short distance into the ileum which appeared grossly normal. The scope was then withdrawn into the colon. There was a single diminutive 4 mm polyp in the cecum removed via cold snare polypectomy. The remaining cecum, ascending and transverse colon and mucosa were grossly normal. Cold biopsies were taken randomly in the right colon to rule out microscopic colitis. There were scattered extensive diverticuli throughout the descending and sigmoid colon (LEFT colon). There were some pericolonic adhesions in the sigmoid colon. The rectum itself was normal. Upon retroflexion within the rectum there were grade 1-2 internal hemorrhoids. The preparation was excellent throughout with [place] Preparation Score of 9. The cecal time was 12 minutes. Impression: 1. Diminutive cecal polyp 2. Extensive left-sided diverticulosis with evidence of sigmoid pericolonic adhesions 3. Grade 1-2 internal hemorrhoids Plan: I will follow-up the random biopsies to rule out microscopic colitis. I would recommend that she continue FiberCon tablets 1 tablet twice daily. I will follow-up the polyp histology and she should not require further preventive/screening colonoscopy.
[2025-06-29] MEDS: LACTATED RINGERS 1000ML 1,000 ML 50 ML IV (10:17)
[2025-06-29 10:20] VITALS: BP 148/70; PULSE 59; RESP 18; TEMP 36.2; O2SAT 97
--- NOTE | 2025-06-29 10:42 | P.PNANES_ITS ---
[facility] Disclaimer: The information contained in this section may have been updated after the patient was seen, as this information can be updated by other users. 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 Hypomagnesemia Edema Hyperlipidemia Anomalous renal arteries Normal coronary arteries Chronic kidney disease Tobacco dependence syndrome Hypertension Surgical History History of cholecystectomy S/P cardiac cath Social History Smoking Status: Current every day smoker tobacco type: cigarettes packs per day: 1 alcohol intake: never substance use type: denies use current occupational status: retired Travel in the last 8 weeks?: None caffeine: Yes Have you lived/traveled outside US in past 30 days?: No Contact w/someone who lives/traveled outside US past 30 days?: No Exposure to someone with infectious disease in past 14 days?: No Do you have a fever (greater than 100.4 F or 38 C)?: No Have you tested positive for COVID-19?: No Exposed to someone with COVID-19 in past 14 days?: No Do you have a sore throat?: No Do you have a cough?: No Do you have any weakness?: No Do you have any diarrhea?: No Are you experiencing any unusual bleeding?: No Do you have any muscle aches/pain?: No Do you have any abdominal pain?: No Are you experiencing loss of taste or smell?: No [facility] Anesthesia Checklist Patient Identification Patient Identification: Arm Band Structural Data Admitted From: Home Planned Operative Procedure/s: EGD/Colonoscopy Consent for Planned Operative Procedure(s) Verified: Yes Verified Documents: Surgical Consent and History and Physical NPO Status Verified Time NPO: 00:00 Additional verifications Anesthesia Reactions: No Airway Assessment Mallampati Score:: Class II C-Spine Mobility Assessed: Yes TMJ Mobility Assessed: Yes Dentition: Edentulous (upper and lower dentures removed) Neurological Assessment Level of Consciousness: Awake, Alert and Appropriate Anesthesia Plan Anesthesia Risk discussed: Yes Anesthesia Plan: Verified ASA Class: II Anesthesia Type: MAC
[2025-06-29 11:56] VITALS: BP 94/44; PULSE 69; RESP 14; TEMP 36.1; O2SAT 97
[2025-06-29 12:06] VITALS: BP 101/47; PULSE 68; RESP 14; O2SAT 95
[2025-06-29 12:16] VITALS: BP 119/51; PULSE 62; RESP 16; O2SAT 96
[2025-06-29 12:26] VITALS: BP 115/55; PULSE 63; RESP 16; O2SAT 97
[2025-07-04 13:26] LABS: Interpretation Notes (.); Lactase 7.19 (>/= 14.0); Maltase 174.97 (>/= 110.0); Palatinase 11.6 (>/= 8.5); Reference Notes (.); Sucrase 46.41 (>/= 25.0)
== END 2025-06-29 12:34 | disposition home or self-care (01) ==
PROVIDERS: PCP Nurse Practitioner Family; Visit Provider Internal Medicine Gastroenterology
PROC: 0DJ08ZZ Inspection of Upper Intestinal Tract, Via Natural or Artificial Opening Endoscopic (ICD-10-PCS; CPT 45378; principal; 2025-06-29 11:00)
DX: K22.4 Dyskinesia of esophagus (principal); J39.2 Other diseases of pharynx; Q39.4 Esophageal web; K52.9 Noninfective gastroenteritis and colitis, unspecified; K21.9 Gastro-esophageal reflux disease without esophagitis; K29.50 Unspecified chronic gastritis without bleeding; D12.0 Benign neoplasm of cecum; K52.832 Lymphocytic colitis; K57.30 Diverticulosis of large intestine without perforation or abscess without bleeding; K64.1 Second degree hemorrhoids; Z86.0102 Personal history of hyperplastic colon polyps; I12.9 Hypertensive chronic kidney disease with stage 1 through stage 4 chronic kidney disease, or unspecified chronic kidney disease; F17.210 Nicotine dependence, cigarettes, uncomplicated; N18.9 Chronic kidney disease, unspecified; E78.5 Hyperlipidemia, unspecified; Z88.5 Allergy status to narcotic agent; Z79.899 Other long term (current) drug therapy
CPT/HCPCS: 43239; 43249; 45380; 45385; 82657; C1726; J2003; J2704; J7120

== ENCOUNTER 2025-08-10 08:44 | Outpatient (CLI) | payer MEDICARE, SELFPAY ==
--- NOTE | 2025-08-10 08:46 | CT_ITS ---
FINAL REPORT CLINICAL HISTORY: SCREENING smoker, 1 ppd x 50 years COMPARISON: 08/12/2024 FINDINGS: CT CHEST LOW DOSE SCREENING HISTORY: Screening exam for lung cancer. 70-year-old female, current smoker, 57-hdat-raem history. DOSE: CTDI vol: 2.90 mGy, DLP: 96.38 mGy*cm TECHNIQUE: Axial CT without IV contrast administration using low dose protocol. This study was performed with techniques to keep radiation doses as low as reasonably achievable, (ALARA). Individualized dose reduction techniques using automated exposure control or adjustment of mA and/or kV according to the patient's size were employed. No acute lung disease is present. There is a 3 mm right lower lobe nodule best seen on image #57 of series 4, stable. No pleural or pericardial effusion is seen. No adenopathy or mass lesion is present. The thoracic esophagus is distended with fluid, probably secondary to advanced reflux. IMPRESSION: 3 mm right lower lobe nodule as described, stable. LUNG RADS CATEGORY 2 RECOMMENDATION: 12 month LDCT follow up Reviewed, Interpreted and Dictated by Ashley Alatorre MD Transcribed by Анна Still Authenticated and [facility]
--- OUTSIDE RECORDS SUMMARY | 2025-08-10 08:47 | XMS_ITS | Clinical Summary ---
Author Organization [facility] Address [address] [place] [address] Care Team Providers Care Floodplain Manager Name Role Phone Chico Lloyd MD Primary Care Provider [phone] Allergies No known active allergies Medications amLODIPine (Norvasc) 10 MG tablet Take 10 mg by mouth 1 (one) time each day. 2 Active albuterol (2.5 MG/3ML) 0.083% nebulizer solution USE 1 VIAL IN NEBULIZER EVERY 4 TO 6 HOURS NEEDED 1 Active atorvastatin (Lipitor) 40 MG tablet TAKE 1 TABLET BY MOUTH EVERYDAY AT BEDTIME 2 Active celecoxib (CeleBREX) 200 MG capsule TAKE 1 CAPSULE BY MOUTH ONCE DAILY NEEDED FOR ARTHRITIC PAIN. 2 Active Vitamin D3 Maximum Strength 125 MCG (5000 UT) capsule TAKE 1 CAPSULE BY MOUTH TWICE A WEEK 2 Active fluticasone (Flonase) 50 MCG/ACT nasal spray Administer 1 spray into each nostril 1 (one) time each day. 2 Active metoprolol succinate XL (Toprol-XL) 50 MG 24 hr tablet Take 50 mg by mouth 1 (one) time each day. 2 Active omeprazole (PriLOSEC) [address] capsule TAKE 1 CAPSULE BY MOUTH EVERY DAY BEFORE A MEAL 2 Active valsartan (Diovan) 80 MG tablet Take 80 mg by mouth 1 (one) time each day. 2 Active methocarbamol (Robaxin) 750 MG tablet Take 1 tablet (750 mg total) by mouth 4 (four) times a day if needed for muscle spasms. 120 tablet 2 Active tiZANidine (Zanaflex) 2 MG tablet Take 1 tablet (2 mg total) by mouth every 8 (eight) hours if needed for muscle spasms. 90 tablet 2 Active Active Problems Problem Noted Date Diagnosed Date Other spondylosis, lumbosacral region 05/23/2022 Immunizations Immunization Administration Dates Next Due Pneumococcal Polysaccharide PPV23 01/04/2013 Family History Medical History Relation Name Comments Diabetes Mother Hypertension Mother Relation Name Status Comments Mother Social History Tobacco Use Types Packs/Day Years Used Date Smoking Tobacco: Every Day Smokeless Tobacco: Never Tobacco Cessation:Ready to Q uit: No; Counseling Given: Yes Alcohol Use Standard Drinks/Week Comments Not Currently 0 (1 standard drink = 0.6 oz pure alcohol) Alcoholic Drinks/day: Stopped Drinking Alcohol Comments Unknown Sex and Gender Information Value Date Recorded Sex Assigned at Not on file Legal Sex Female 7:44 PM EDT Gender Identity Not on file Sexual Orientation Not on file Last Filed Vital Signs Vital Sign Reading Time Taken Comments Blood Pressure 148/79 08/07/2022 10:24 AM EST Pulse 56 08/07/2022 10:24 AM EST Temperature 36.4 C (97.5 F) 08/07/2022 10:24 AM EST Respiratory Rate 20 06/16/2022 1:37 PM EDT Oxygen Saturation 94% 06/16/2022 1:37 PM EDT Inhaled Oxygen Concentration - - Weight 81.6 kg (180 lb) 08/07/2022 10:24 AM EST Height 157.5 cm (5' 2 ) 08/07/2022 10:24 AM EST Body Mass Index 32.92 08/07/2022 10:24 AM EST Plan of Treatment Health Maintenance Due Date Last Done Comments [facility]-Bone Density Scan 1953 [facility]-Depression Screening 1953 [facility]-Hepatitis C Screening 1955 [facility]-Medicare Annual Wellness (AWV) 1955 [facility]-/Child/Adol SDOH Screenings 1953 [facility]- SDOH Screenings 1971 [facility]-Adult SDOH Screenings 1971 [facility]-DTaP,Tdap,and Td Vaccines (1 - Tdap) 01/07/1972 CT Colonography 1998 Colonoscopy 1998 FIT-DNA 1998 FIT 1998 FOBT 1998 Sigmoidoscopy 1998 [facility]-Colorectal Cancer Screening 1998 [facility]-Breast Cancer Screening 2003 [facility]-Zoster Vaccines (1 of 2) 2003 [facility]-Pneumococcal Vaccine: 50+ Years (2 of 2 - PCV) 08/06/2019 08/06/2018, 01/04/2013 [id number] Vaccine ( season) 2025 2022, 07/23/2021, 12/27/2020, Additional history exists [facility]-Influenza Vaccine (#1) 05/29/202507/18, 07/05/2021, 06/19/2020, Additional history exists [facility]-RSV Vaccine: 60+ Years or (1 - 1-dose 75+ series) 01/07/2028 [facility]-Obesity Intervention Completed 08/07/2022, 1109/2021 HPV Vaccines Aged Out No longer eligi ble based on patient's age to complete this topic [facility]-HIB Vaccines Aged Out No longer e ligible based on patient's age to complete this topic [facility]-Hepatitis A Vaccines Aged Out No longer eligible based on patient's age to complete this topic [facility]-IPV Vaccines Aged Out No longer e ligible based on patient's age to complete this topic [facility]-Rotavirus Vaccines Aged Out No lo nger eligible based on patient's age to complete this topic Insurance [employer] Care Teams Floodplain Manager Relationship Specialty Start Date End Date Chico Lloyd MD [address] [place] [id number] PCP - General 02/08/21
--- OUTSIDE RECORDS SUMMARY | 2025-08-10 08:47 | XMS_ITS | Clinical Summary ---
Author Organization [facility] Address [address] [place] [address] Care Team Providers Care Pedigree Researcher Name Role Phone Vani Desir APRN Primary Care Provider [phone] Allergies Active Allergy Reactions Criticality Noted Date Comments Propoxyphene Itching Low 05/11/2020 Medications atorvastatin (LIPITOR) 40 MG tablet Take 1 tablet by mouth Daily. Active fluticasone (FLONASE) 50 MCG/ACT nasal spray Active omeprazole (priLOSEC) 40 MG capsule Active vitamin D3 125 MCG (5000 UT) capsule capsule Acti ve furosemide (LASIX) 20 MG tablet Active hydrALAZINE (APRESOLINE) 50 MG tablet Take 1 tablet by mouth 3 (Three) Times a Day. 07/02/2023 Active multivitamin with minerals tablet tablet Take 1 tablet by mouth Daily. Active valsartan (DIOVAN) 320 MG tablet TAKE ONE TABLET BY MOUTH DAILY 90 tablet 09/09/2023 Active metoprolol succinate XL (TOPROL-XL) 25 MG 24 hr tablet TAKE ONE TABLET BY MOUTH DAILY 90 tablet 09/09/2023 Active Active Problems Problem Noted Date Diagnosed Date Abnormal stress test 07/13/2023 Assessment & Plan (07/13/2023 4:03 PM EDT): Patient completed a stress test at [facility] on 06/30/2023 that revealed at peak stress, there was [address] depression present. Findings are suggestive of possible ischemia. Patient continues to experience occasional chest tightness that occurs randomly. I discussed the results of stress test in detail with patient. She would like to proceed with a left heart cath at [facility] and follow-up with Dr. Hill. Hyperlipidemia 05/12/2023 Essential hypertension 05/12/2023 Assessment & Plan (07/13/2023 4:02 PM EDT): Hypertension is improving with treatment. Continue current treatment regimen. Dietary sodium restriction. Blood pressure will be reassessed at the next regular appointment. Acid reflux 05/12/2023 Arthritis 05/12/2023 COPD (chronic obstructive pulmonary disease) SOB (shortness of breath) 05/12/2023 Bradycardia, sinus 05/12/2023 Tobacco use 05/12/2023 Bilateral leg edema 05/12/2023 Other spondylosis, lumbosacral region 05/23/2022 Immunizations Immunization Administration Dates Next Due 31-influenza Vac Quardvalent Preservativ 018 Fluzone (or Fluarix & Flulav al for VFC) >6mos 07/18/2022,07/05/2021,06/19/2020 Influenza MDCK Quadrivalent with Preserative 07/14/2019 Pneumococcal Polysaccharide (PPSV23) 08/06/2018, 01/04/2013 Shingrix 01/19/2023 Family History Medical History Relation Name Comments Heart attack Father Relation Name Status Comments Father Mother Social History Tobacco Use Types Packs/Day Years Used Date Smoking Tobacco: Every Day Cigarettes Passive Smoke Exposure: Current Smokeless Tobacco: Never Alcohol Use Standard Drinks/Week Comments Never 0 (1 standard drink = 0.6 oz pur e alcohol) Abuse Screen Answer Date Recorded Unsafe at Home or Work/School Not on file Feels Threatened by Someone? Not on file 05/2023 Does Anyone Keep You from Co ntacting Others or Doint Things Outside the Home? Not on file 07/06/2023 Physical Sign of Abuse Present Not on file 1 Housing Stability Answer Date Recorded Current Living Arrangements Not on file 05/2023 Potentially Unsafe Housing Conditions Not on ron e 07/06/2023 Family and Community Support Answer Oral e Recorded Help with Day-to-Day Activities Not on file 07/06/2023 Lonely or Isolated Not on file 07/06/2023 Employment Answer Date Recorded Do you want help finding or keeping work or a sary b? Not on file 07/06/2023 Disabilities Answer Date Recorded Concentrating, Remembering, or Making Decisions Difficulty Not on file 07/06/2023 Doing Errands Independently Difficulty Not on fi le 07/06/2023 Education Answer Date Recorded Help with school or training? Not on file Preferred Language Not on file 07/06/2023 Comments Unknown Sex and Gender Information Value Date Recorded Sex Assigned at Not on file Legal Sex Female 12:36 PM EDT Gender Identity Not on file Sexual Orientation Not on file Last Filed Vital Signs Vital Sign Reading Time Taken Comments Blood Pressure 132/78 07/13/2023 1:01 PM EDT Pulse 63 07/13/2023 1:01 PM EDT Temperature - - Respiratory Rate - - Oxygen Saturation 98% 07/13/2023 1:01 PM EDT Inhaled Oxygen Concentration - - Weight 78.9 kg (174 lb) 07/13/2023 1:01 PM EDT Height 157.5 cm (5' 2 ) 07/13/2023 1:01 PM EDT Body Mass Index 31.83 07/13/2023 1:01 PM EDT Plan of Treatment Health Maintenance Due Date Last Done Comments DXA SCAN 1953 LIPID PANEL 1953 TDAP/TD VACCINES (1 - Tdap) 01/07/1972 MAMMOGRAM 1993 COLOGUARD 1998 COLON CANCER SCREENING 5 YEA R SIGMOIDOSCOPY 1998 COLONOSCOPY 1998 COL[address]AL CANCER SCREENING 1998 CT COLONOGRAPHY 1998 FECAL OCCULT BLOOD TEST 1998 FIT Testing (1 year) 1998 Pneumococcal Vaccine 50+ (2 of 2 - PCV) 08/06/2019 08/06/2018, 01/04/2013 ZOSTER VACCINE (2 of 2) 03/16/2023 01/19/2023 ANNUAL WELLNESS VISIT 05/12/2023 HEPATITIS C SCREENING 05/12/2023 INFLUENZA VACCINE 04/28/2025 07/18/2022, , 07/05/2021, Additional history exists COVID-19 Vaccine (4 - 2024-2 6 season) 2025 08/19/2022, 2022, 07/23/2021, Additional history exists Insurance MEDICARE A & B Care Teams Pedigree Researcher Relationship Specialty Start Date End Date Vani Desir APRN [address] [place] [address] PCP - General Nurse Practitioner 05/12/23
--- OUTSIDE RECORDS SUMMARY | 2025-08-10 08:47 | XMS_ITS | Continuity of Care Document ---
Author Organization [place] - [employer] [facility] Address [address] [place] [address] Assessment Encounter Date Assessment Date Assessment LastModified by Organization Details LastModified Time 07/04/2025 07/04/2025 Lia Alberts, a female patient with COPD, kidney dysfunction, and gastrointestinal issues, presented for follow-up after nostril cyst excision and recent colonoscopy/EGD with polyp removal, biopsies, and third esophageal dilation. Her kidney function improved by 2 points since March, and diarrhea improved with Fibricor and Iberogast. COPD was stable with 94% oxygen saturation. She received a flu shot and. Follow-up lung scan was scheduled after August 12, with medication refills provided. [email or web address] Not available 07/04/2025 09:22:04 Plan of Treatment Reminders Order Date Submit Date Provider Last Modified By Organization Details Last Modified Time Details Appointments FOLLOW UP 30 2025 08:30A Jaziel Desir APRN Not available Not available Not available Lab None recorded. Referral None recorded. Procedures None recorded. Surgeries None recorded. Imaging LDCT, chest, for lung cancer screening - due after august 1220[address] ([facility]), [address], [place], [address], 07/04/2025 12:05:56 Medication Orders atorvasta tin 40 mg tablet 2024 025 [facility], [facility], [place], [address], 07/04/2025 09:42:34 furosemid e 20 mg tablet 2024 [facility], [address] [place] [address], [id number], 07/04/2025 09:42:34 albuterol sulfate 2.5 mg/3 mL (0.083 %) solution for nebulizat ion 2024 [facility], [address] [place] [address], [id number], 07/06/2025 10:17:26 omeprazol e 40 mg capsule,d elayed release 2024 [facility], [address] [place] [address], [id number], 07/06/2025 10:17:27 Patient TargetsNo targets recorded. Patient InstructionsNo instructions recorded. Reason for Referral None Reported. Results Created Date Observation Date Name Description Value Unit Range Abnormal Flag Note LastModifiedBy Organization Detail LastModifiedTime Result Notes None recorded. Problems Name Problem SNOMED Code Status Onset Date Resolution Date Notes Provider Name and Address Organization Details Recorded Time Hyperten sive disorder [id number] Completed 201709/06/2018 Problem Code: I10; Problem Code Type: ICD-10; Not Available [facility] 2 22:07:21 Benign essentia l hyperten ursula 0067513 Active 2017 Problem Code: 401.1; Problem Code Type: ICD-9; Not Available [facility] 3 14:04:28 Gastroes ophageal reflux disease without esophagi tis 979506344 Completed 201707/23/2022 [facility]er [facility] 2 10:14:22 Idiopath ic osteoart hritis 619354347 Active 2017 Problem Code: M15.0; Problem Code Type: ICD-10; Not Available [facility] 3 14:04:28 Abnormal weight gain 548356858 Completed 201711/05/2018 Problem Code: R63.5; Problem Code Type: ICD-10; Not Available [facility] 22:07:26 Vitamin D deficien cy 10545378 Completed 201703/01/2021 Problem Code: 268.9; Problem Code Type: ICD-9; Vani Desir, [address] [place], [address] , [employer] 5 12:12:21 Gastroes ophageal reflux disease 348856763 Completed 201703/01/2021 Problem Code: 530.81; Problem Code Type: ICD-9; Not Available [facility] 22:07:32 Mixed hyperlip idemia 075177841 Completed 201703/01/2021 Problem Code: 272.2; Problem Code Type: ICD-9; Not Available [facility] 22:07:36 Osteoart hrosis involvin g multiple sites but not designat ed as generali zed 51922440 Completed 201703/01/2021 Problem Code: 715.89; Problem Code Type: ICD-9; Not Available [facility] 22:07:36 Tenderne ss of left lower quadrant of abdomen 144459242 Completed 201710/08/2018 Problem Code: R10.814; Problem Code Type: ICD-10; Not Available [facility] 22:07:24 Urinary tract infectio us disease 81230543 Completed 201711/23/2018 Problem Code: N39.0; Problem Code Type: ICD-10; JERAMY miller, [employer] 10:14:22 Generali zed abdomina l pain 470544382 Completed 201710/08/2018 Problem Code: 789.07; Problem Code Type: ICD-9; Not Available [facility] 22:07:34 Urinary tract infectio us disease 87529926 Completed 201812/07/2018 Problem Code: N39.0; Problem Code Type: ICD-10; JERAMY RUIZR null, [employer] 2 10:14:22 Non-toxi c uninodul ar goiter 881252231 Completed 201811/19/2020 Problem Code: E04.1; Problem Code Type: ICD-10; Not Available [facility] 2 22:07:20 Screenin g mammogra phy Completed 201807/20/2019 Problem Code: Z12.31; Problem Code Type: ICD-10; JERAMY SURESHNEAR null, [employer] 2 10:14:22 Influenz a vaccine needed [id number] 06 Completed 201807/23/2022 Problem Code: Z23; Problem Code Type: ICD-10; JERAMY RUIZR null, [employer] 2 10:14:21 General examinat ion of patient Completed 201803/01/2021 JERAMY RUIZR null, [employer] 2 10:14:22 Body mass index 30+ - obesity 728477926 Completed 201808/19/2020 Problem Code: Z68.30; Problem Code Type: ICD-10; Not Available [facility] 2 22:07:35 Nicotine dependen ce 54684845 Active 2018 Problem Code: F17.200; Problem Code Type: ICD-10; Not Available [facility] 3 14:04:28 Urinary tract infectio us disease 72870554 Completed 201807/23/2022 Problem Code: N39.0; Problem Code Type: ICD-10; JERAMY SURESHNEAR null, [employer] 2 10:14:22 Dysuria 80776455 Completed 201807/23/2022 Problem Code: R30.0; Problem Code Type: ICD-10; JERAMY SURESHNEAR null, [employer] 2 10:14:22 Body mass index 30+ - obesity 840022759 Active 2018 Problem Code: Z68.30; Problem Code Type: ICD-10; Not Available [facility] 3 14:04:28 Chronic pain 24915951 Completed 201808/19/2020 Problem Code: G89.29; Problem Code Type: ICD-10; Not Available [facility] 2 22:07:20 Urinary tract infectio us disease 47117671 Completed 201808/19/2020 Problem Code: N39.0; Problem Code Type: ICD-10; JERAMY miller, [employer] 2 10:14:22 Edema 857415941 Completed 201807/23/2022 JERAMY SURESHVALENTINEMike null, [employer] 2 10:14:22 Pyrexia of unknown origin 7624728 Completed 201808/19/2020 Problem Code: R50.9; Problem Code Type: ICD-10; JERAMY miller, [employer] 2 10:14:22 Body mass index 30+ - obesity 190645181 Completed 201909/25/2020 Problem Code: Z68.32; Problem Code Type: ICD-10; Not Available [facility] 2 22:07:35 Helicoba cter blood test finding 295787359 Completed 201908/19/2020 Problem Code: B96.81; Problem Code Type: ICD-10; Not Available [facility] 2 22:07:19 Hypothyr oidism 66318693 Active 2019 Not Available [facility] 3 14:04:28 Mixed hyperlip idemia 561328320 Active 2019 Problem Code: E78.2; Problem Code Type: ICD-10; Not Available [facility] 3 14:04:28 Vitamin D deficien cy 49991337 Active 2019 Problem Code: E55.9; Problem Code Type: ICD-10; Vani Desir, WILSON [address] [place] [address], [phone] , [place] [employer] 5 12:12:21 Hyperten sive disorder 04269232 Active 2019 Problem Code: I10; Problem Code Type: ICD-10; Not Available [facility] 3 14:04:28 Urinary tract infectio us disease 29778453 Completed 201908/19/2020 Problem Code: N39.0; Problem Code Type: ICD-10; JERAMY SURESHLIDIA miller, [employer] 2 10:14:22 Dysuria 59691259 Completed 201908/19/2020 Problem Code: R30.0; Problem Code Type: ICD-10; JERAMY MYLIDIA miller, [employer] 2 10:14:22 Dysuria 12576143 Completed 201908/19/2020 Problem Code: R30.0; Problem Code Type: ICD-10; JERAMY MYLIDIA miller, [employer] 2 10:14:22 Urinary tract infectio us disease 53705578 Completed 201908/19/2020 Problem Code: N39.0; Problem Code Type: ICD-10; JERAMY SURESHLIDIA null, [employer] 2 10:14:22 Influenz a vaccine needed 92149917301 06 Completed 201908/19/2020 Problem Code: Z23; Problem Code Type: ICD-10; JERAMY SURESHLIDIA null, [employer] 2 10:14:21 Acute bronchit is 46262839 Completed 201909/25/2020 Problem Code: J20.9; Problem Code Type: ICD-10; Not Available [facility] 2 22:07:21 Tobacco dependen ce caused by cigarett es 44835979968 612605 Active 2019 Problem Code: F17.210; Problem Code Type: ICD-10; Vani Desir APRN [address] [place] [address], [address] , [employer] 5 08:33:39 Epigastr ic pain 45240130 Completed 201907/23/2022 Problem Code: R10.13; Problem Code Type: ICD-10; JERAMY miller, [employer] 2 10:14:22 General examinat ion of patient Completed 201903/01/2021 JERAMY miller, [employer] 2 10:14:22 Body mass index 30+ - obesity 183074678 Completed 201903/01/2021 Problem Code: Z68.32; Problem Code Type: ICD-10; Not Available [facility] 22:07:30 Otitis externa of left ear 19494891562 37535 Completed 202007/23/2022 Problem Code: H60.332; Problem Code Type: ICD-10; JERAMY miller, [employer] 2 10:14:21 Finding of general energy 451714929 Completed 202002/15/2021 Problem Code: R53.83; Problem Code Type: ICD-10; Not Available [facility] 22:07:26 Screenin g mammogra phy Completed 202002/15/2021 Problem Code: Z12.31; Problem Code Type: ICD-10; JERAMY miller, [employer] 2 10:14:22 Chronic obstruct rochelle pulmonar y disease 41213912 Active 2020 Problem Code: J44.9; Problem Code Type: ICD-10; Vani Desir APRN [address] [place] [address], [address] , [employer] 5 08:33:07 Acute exacerba tion of chronic obstruct rochelle pulmonar y disease 122652928 Completed 202006/27/2021 Problem Code: J44.1; Problem Code Type: ICD-10; Not Available [facility] 22:07:22 Acute exacerba tion of chronic obstruct rochelle pulmonar y disease 021547531 Completed 202006/27/2021 Problem Code: J44.1; Problem Code Type: ICD-10; Not Available [facility] 22:07:21 Acute respirat ory infectio ns 317871436 Completed 202007/23/2022 Problem Code: J22; Problem Code Type: ICD-10; JERAMY RUIZR null, [employer] 10:14:22 Spasm 39920025 Completed 202006/27/2021 Problem Code: M62.838; Problem Code Type: ICD-10; Not Available [facility] 22:07:22 Urinary tract infectio us disease 37428562 Completed 202006/27/2021 Problem Code: N39.0; Problem Code Type: ICD-10; JERAMY RUIZR null, [employer] 10:14:22 Dysuria 94673651 Completed 202006/27/2021 Problem Code: R30.0; Problem Code Type: ICD-10; JERAMY KERWINNEAR null, [employer] 10:14:22 Acute pyelonep hritis 93378017 Completed 202007/23/2022 Problem Code: N10; Problem Code Type: ICD-10; JERAMY KERWINNEAR null, [employer] 10:14:22 Hypokale tony 64790317 Completed 202007/23/2022 Problem Code: E87.6; Problem Code Type: ICD-10; JERAMY KERWINNEAR null, [employer] 10:14:22 Pyrexia of unknown origin 9447081 Completed 202007/23/2022 Problem Code: R50.9; Problem Code Type: ICD-10; JERAMY MYNEAR null, [employer] 2 10:14:22 Screenin g mammogra phy Completed 202107/23/2022 Problem Code: Z12.31; Problem Code Type: ICD-10; JERAMY COOK null, [employer] 2 10:14:22 Neoplasm of uncertai n behavior of skin 08441652 Completed 202107/23/2022 Problem Code: D48.5; Problem Code Type: ICD-10; JERAMY COOK null, [employer] 2 10:14:22 General examinat ion of patient Completed 202107/23/2022 JERAMY COOK null, [employer] 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 2 10:14:22 Chronic kidney disease stage 3 824970506 Active 2023 Jena Elise NP [address] [place], [address] , [employer] 4 15:00:01 Essentia l hyperten ursula 75806769 Active 2024 Vani Desir APRN [address] [place], [address] , [employer] 5 08:32:57 Chronic diarrhea of unknown origin 36062845 Active 2024 Vani Desir APRN [address] [place], [address] , [employer] 5 11:57:55 Abnormal weight loss 188106340 Active 2024 Vani Desir, [address] [place], [address] , [employer] 5 11:58:09 Polyp of nasal cavity and/or nasal sinus 627292594 Active 2024 Vani Desir, [address] [place], [address] , [employer] 5 11:59:56 Strictur e of esophagu s 75191055 Active 2024 Vani Desir, [address] [place], [address] , [employer] 5 12:09:32 Problem Notes None recorded. Procedures Surgical History Date Name Laterality Status Provider Name and Address Organization Details Recorded Time 12/15/19 25 Most Recent Mammogram completed [employer] 04/03/2025 11:38:34 08/06/20 18 cholecystectomy completed Not Available [facility] 06/03/2022 22:56:07 08/06/20 18 hysterectomy completed Not Available [facility] 06/03/2022 22:56:09 08/06/20 18 section completed Not Available [facility] 06/03/2022 22:56:11 Carpal Tunnel Surgery completed [email or web address] 07/23/2022 10:17:49 Back Surgery completed [employer] 07/23/2022 10:18:01 Imaging Results None recorded. Procedure Notes None recorded. Medical Equipment None Reported. Allergies Allergen ID Allergen Name Allergen Category Reaction Reaction Severity Criticality Documentation Date Start Date Code Code System Note Provider Name and Address Organization Details Recorded Time 00730 Acetamino phen / Propoxyph alona medicatio n Not available Not available Not available 06/03/2022 65565 RxNorm JENNA miller, [employer] 15:58:26 77491 famotidin e medicatio n Not available Not available Not available 06/03/2022 4278 RxNorm fatig ue Not Available [facility] 22:55:10 Medications Name Sig Start Date Stop Date Status Note LastModified by Organization Details LastModified Time celecoxib 200 mg capsule TAKE 1 CAPSULE BY MOUTH ONCE DAILY NEEDED FOR ARTHRITI C PAIN. 05/28 completed Not Available Not Available Not Available furosemid e 40 mg tablet TAKE ONE TABLET BY MOUTH DAILY 04/03 completed Not Available Not Available Not Available atorvasta tin 40 mg tablet TAKE 1 TABLET BY MOUTH AT BEDTIME 2024 active Not Available Not Available Not Avai lable nitrofura ntoin macrocrys kalyani 50 mg capsule take 1 capsule (50 mg) by mouth daily 07/23 completed Not Available Not Available Not Available tizanidin e 2 mg tablet 01/19 completed Not Available Not Available Not Available albuterol sulfate 2.5 mg/3 mL (0.083 %) solution for nebulizat ion USE 1 VIAL IN NEBULIZE R EVERY 4 TO 6 HOURS NEEDED active Not Available Not Available No t Available azithromy mckenna 250 mg tablet take 2 tablets (500 mg) by oral route once daily for 1 day then 1 tablet (250 mg) by oral route once daily for 4 days 03/01 completed Not Available Not Available Not Available nifedipin e ER 90 mg tablet,ex tended release TAKE ONE TABLET BY MOUTH EVERY DAY active Not Available Not Available No t Available metoprolo l succinate ER 50 mg tablet,ex tended release 24 hr TAKE 1 TABLET BY MOUTH EVERY DAY 05/28 completed Not Available Not Available Not Available clarithro mycin 500 mg tablet take 1 tablet (500 mg) by oral route 2 times per day 03/15 completed Not Available Not Available Not Available lisinopri l 20 mg tablet TAKE ONE TABLET BY MOUTH EVERY DAY 06/15 completed Not Available Not Available Not Available famotidin e 40 mg tablet take 1 tablet (40 mg) by oral route 2 times per day 11/19 completed Not Available Not Available Not Available prednison e 20 mg tablet Take 2 tablets every day by oral route with meals for 5 days. 06/15 completed Not Available Not Available Not Available metoprolo l succinate ER 100 mg tablet,ex tended release 24 hr TAKE ONE TABLET BY MOUTH NIGHTLY active Not Available Not Available No t Available Tylenol Arthritis Pain 650 mg tablet,ex tended release Take 2 tablets every 8 hours by oral route. active Not Available Not Available No t Available valsartan 80 mg tablet TAKE 1 TABLET BY MOUTH EVERY DAY 04/10 completed Not Available Not Available Not Available hydralazi ne 25 mg tablet TAKE ONE TABLET BY MOUTH THREE TIMES DAILY 07/20 completed Not Available Not Available Not Available ciproflox acin 500 mg tablet take 1 tablet (500 mg) by oral route every 12 hours for 10 days 07/23 completed Not Available Not Available Not Available sulfameth oxazole 800 mg-trimet hoprim 160 mg tablet take 1 tablet by oral route every 12 hours for 10 days 04/02 completed Not Available Not Available Not Available omeprazol e 40 mg capsule,d elayed release TAKE 1 CAPSULE BY MOUTH EVERY DAY BEFORE A MEAL active Not Available Not Available No t Available spironola ctone 25 mg tablet TAKE ONE-HALF TABLET BY MOUTH EVERY DAY active Not Available Not Available No t Available amoxicill in 500 mg tablet Take 2 tablets by mouth twice daily x 14 days 12/18 completed Not Available Not Available Not Available Macrobid 100 mg capsule Take 1 capsule every 12 hours by oral route for 7 days, for UTI. 11/30 completed Not Available Not Available Not Available ceftriaxo ne 1 gram solution for injection Take 1 g by injectio n route. 06/15 completed Not Available Not Available Not Available magnesium oxide 400 mg (241.3 mg magnesium ) tablet TAKE ONE TABLET BY MOUTH TWICE DAILY 04/03 completed Not Available Not Available Not Available Flagyl 500 mg tablet Take 1 tablet(s ) by mouth tid for 10 days 10/08 completed Not Available Not Available Not Available amlodipin e 10 mg tablet TAKE 1 TABLET BY MOUTH EVERY DAY 04/15 completed Not Available Not Available Not Available doxycycli ne monohydra te 100 mg capsule take 1 capsule (100 mg) by oral route 2 times per day for 10 days 03/251 completed Not Available Not Available Not Available triamcino lone acetonide 40 mg/mL suspensio n for injection Take 1 mL by injectio n route. 06/15 completed Not Available Not Available Not Available pantopraz ole 40 mg tablet,de layed release take 1 tablet (40 mg) by oral route 2 times per day 11/19 completed Not Available Not Available Not Available nitrofura ntoin macrocrys kalyani 100 mg capsule TAKE ONE CAPSULE BY MOUTH EVERY TWELVE HOURS FOR 7 DAYS FOR uti 11/30 completed Not Available Not Available Not Available valsartan 320 mg tablet TAKE ONE TABLET BY MOUTH DAILY 08/02 completed Not Available Not Available Not Available budesonid e 0.25 mg/2 mL suspensio n for nebulizat ion inhale 2 millilit ers (0.25 mg) by nebuliza tion route 2 times per day and rinse mouth 05/28 completed Not Available Not Available Not Available diclofena c sodium 75 mg tablet,de layed release Take 1 tablet by mouth twice daily 09/25 completed Not Available Not Available Not Available benazepri l 20 mg tablet Take 1 tablet every day by oral route. 06/04 completed Not Available Not Available Not Available hydralazi ne 50 mg tablet TAKE ONE TABLET BY MOUTH THREE TIMES DAILY 08/02 completed Not Available Not Available Not Available furosemid e 20 mg tablet Take 1 tablet every day by oral route in the morning. 2024 active Not Available Not Available Not Avai lable metoprolo l succinate ER 25 mg tablet,ex tended release 24 hr TAKE ONE TABLET BY MOUTH DAILY 02/15 completed Not Available Not Available Not Available budesonid e DR - ER 3 mg capsule,d elayed,ex tended release TAKE THREE CAPSULES BY MOUTH nightly towards bedtime active Not Available Not Available No t Available levofloxa mckenna 500 mg tablet take 1 tablet (500 mg) by oral route once daily for 7 days 08/15 completed Not Available Not Available Not Available benazepri l 10 mg tablet take TWO tablets by MOUTH daily 06/04 completed Patient experien cing diarrhea Not Available Not Available Not Available oxybutyni n chloride 5 mg tablet TAKE 1 TABLET BY MOUTH DAILY active Not Available Not Available No t Available ondansetr on 4 mg disintegr ating tablet place 1 tablet (4 mg) and place on top of the tongue where it will dissolve , then swallow by translin gual route 4 times per day prn N/V 01/21 completed Not Available Not Available Not Available cefdinir 300 mg capsule TAKE ONE CAPSULE BY MOUTH EVERY TWELVE HOURS WITH FOOD FOR 10 DAYS 07/20 completed Not Available Not Available Not Available losartan 100 mg tablet 1 tablet by mouth daily 03/11 completed Not Available Not Available Not Available fluticaso ne propionat e 50 mcg/actua tion nasal spray,anthony pension SPRAY ONCE in EACH NOSTRIL DAILY active Not Available Not Available No t Available colestipo l 1 gram tablet TAKE ONE TABLET BY MOUTH TWICE DAILY NEEDED FOR DIARRHEA 07/04 completed Not Available Not Available Not Available cholecalc iferol (vitamin D3) 125 mcg (5,000 unit) capsule TAKE 1 CAPSULE BY MOUTH TWICE A WEEK 04/14 completed Not Available Not Available Not Available dicyclomi ne 10 mg capsule Take 1 capsule( s) by mouth tid 07/08 completed Not Available Not Available Not Available calcitrio l 0.25 mcg capsule TAKE ONE CAPSULE BY MOUTH every other DAY active Not Available Not Available No t Available valsartan 160 mg tablet Take 2 tablets every day by oral route. 10/20 completed Not Available Not Available Not Available neomycin- polymyxin -hydrocor t 3.5 mg-10,000 unit/mL-1 % ear drops,anthony p instill 4 drops into affected left ear(s) by otic route 3 times per day 03/25 completed Not Available Not Available Not Available guaifenes in 400 mg tablet take 1 tablet (400 mg) by oral route every 4 hours as needed for cough 07/23 completed Not Available Not Available Not Available cholecalc iferol (vitamin D3) 25 mcg (1,000 unit) tablet TAKE ONE TABLET BY MOUTH DAILY 04/03 completed Not Available Not Available Not Available sodium,po tassium,m ag sulfates 17.5 gram-3.13 gram-1.6 gram oral soln DILUTE; drink full amount by mouth early evening before AND next morning at least 4 to 5 hr before procedur e; follow with 960 mL water 07/04 completed Not Available Not Available Not Available potassium chloride ER 20 mEq tablet,ex tended release take 1 tablet (20 meq) by oral route 2 times per day with food 07/23 completed Not Available Not Available Not Available Weekly-D 1,250 mcg (50,000 unit) capsule Take 1 capsule by mouth once a week 07/23 completed Not Available Not Available Not Available Vitals Date Recorded Body height Body mass index (BMI) Body weight Body temperature Heart rate Oxygen saturation Oxygen saturation in Arterial blood by Pulse oximetry Systolic And Diastolic Provider Name and Address Organization Details Last Updated DateTime 162.56 cm 24 kg/m2 42572.2 1 g 97 [degF] 57 /min 94 % 94 % 129/63 mm[Hg] JERAMY COOK [employer] 08:25:12 Social History Question Answer Notes LastModified by Organizat ion Details LastModified Time Tobacco Smoking Status Current Every Day Smoker Neena miller, [employer] 12/04/2022 09:30:12 Do You Have An Advance Directive? No Information n ot available 07/23/2022 Is Your Home Air Conditioned? Yes Information not available 07/23/2022 Are You Blind Or Do You Have Difficulty Seeing? No Information n ot available 07/23/2022 What Is Your Level Of Caffeine Consumption? Heavy [id number] Information not available 05/28/2023 In The 14 Days Before Symptom Onset, Have You Had Close Contact With A Laboratory-confirm ed COVID-19 While That Case Was Ill? No [email or web address] Information n ot available 06/04/2023 In The 14 Days Before Symptom Onset, Have You Had Close Contact With A Person Who Is Under Investigation For COVID-19 While That Person Was Ill? No [email or web address] Information not available 06/04/2023 Have You Been To An Area Known To Be High Risk For COVID-19? No [email or web address] Information not available 06/04/2023 Are You Deaf Or Do You Have Serious Difficulty Hearing? No Information not available 07/23/2022 What Type Of Diet Are You Following? REGULAR Information n ot available 07/23/2022 Have There Been Any Changes To Your Family Or Social Situation? No Information no t available 07/23/2022 Are There Any Guns Present In Your Home? No Information not available 07/23/2022 Do You Have A Medical Power Of Weapons Electrical Engineering Officer? No Information not available 07/23/2022 What Was The Date Of Your Most Recent Tobacco Screening? 07/04/2025 Information not available 07/04/2025 What Is Your Current Pack Years? 30ormorepack years Information not available 07/23/2022 What Is Your Relationship Status? Information not available 07/23/2022 Do You Use Your Seat Belt Or Car Seat Routinely? Yes Information not available 07/23/2022 Do You Have Smoke And Carbon Monoxide Detectors In Your Home? Yes Information not available 07/23/2022 At What Age Did You Start Smoking Tobacco? 14 Information not available 07/23/2022 Are You Passively Exposed To Smoke? Yes Information no t available 07/23/2022 Are There Any Smokers In Your House? Yes Information not available 07/23/2022 How Much Tobacco Do You Smoke? 1 PPD Information not available 07/23/2022 Do You Use Sunscreen Routinely? No Information not available 07/23/2022 Has Tobacco Cessation Counseling Been Provided? Yes Information not available 07/23/2022 On What Date Was Tobacco Cessation Counseling Provided? 04/03/2025 Information not available 04/03/2025 How Many Years Have You Smoked Tobacco? 53 Information not available 07/23/2022 Have You Recently Traveled Abroad? No Information not available 07/23/2022 Do You Have Difficulty Walking Or Climbing Stairs? No Information not available 07/23/2022 Are You Currently In School? No Information not available 07/21/2022 Do You Have Any Dietary Restrictions? No Information not available 07/23/2022 Sex: Female Functional Status Question Answer Note LastModified by Organizat ion Details LastModified Time Do you use any illicit or recreational drugs? No Information not available 07/23/2022 Do you or have you ever used any other forms of tobacco or nicotine? No Information not available 07/23/2022 What is your level of alcohol consumption? None Information not available 07/23/2022 Are you currently employed? No Information not available 07/21/2022 Do you have transportation difficulties? No Information not available 07/23/2022 Do you have difficulty doing errands alone? No Information not available 07/23/2022 Are you able to care for yourself independently? Yes Information not available 07/23/2022 Do you have difficulty dressing, bathing, grooming, or toileting? No Information not available 07/23/2022 Mental Status Question Answer Note LastModified by Organization D etails LastModified Time Do you have difficulty concentrating, remembering or making decisions? No Information no t available 07/23/2022 Family History Relationship Description Onset Age of this Age Resolved Age Notes LastModified by Organization Details LastModified Time Mother Family history of hyperlipidem ia [email or web address] Not available 2022 08:21:10 Mother Family history of Hypertension [email or web address] Not available 03/2023 08:21:10 Mother Chronic obstructive pulmonary disease [email or web address] Not available 2022 08:21:10 Brother Asthma [email or web address] Not availa ble 05/28/2023 10:43:15 Father Myocardial infarction 50 [email or web address] Not available 06/04 08:21:10 Medical History Condition Response Hospitalizations N Emergency room visit since last appointm ent. N Hypertension Y Hypothyroidism Y COPD Y High Cholesterol Y Gynecological History Statement/Question Response Date of Last Pap Smear Most Recent Mammogram 12/14/2024 Obstetrics History GPAL:G 0 P 0 0 0 0 Immunizations Vaccine Type Date Status Note Provider Nam e and Address Organization Details Recorded Time zoster recombinant 3 completed Vani Desir, WILSON [address] [place], [address], [employer] 01/23/2023 12:46:24 Influenza, high-dose, quadrivalent, PF 3 completed Vani Desir APRN [address] [place], [address], [employer] 07/20/2023 15:48:29 zoster recombinant 4 completed Vani Desir APRN [address] [place] [address], [id number], [employer] 10/20/2023 13:46:57 Influenza, split virus, quadrivalent, PF 2 completed JENNIFER miller, [employer] 07/18/2022 10:03:38 Influenza, high-dose, trivalent, PF 4 completed Vani Desir APRN [address] [place] [address], [id number], [employer] 08/07/2024 20:26:10 COVID-19, mRNA, LNP-S, PF, 100 mcg/0.5mL dose or 50 mcg/0.25mL dose 2 completed Not Available [facility] 07/21/2023 14:04:28 COVID-19 vaccine, vector-nr, rS-ChAdOx1, PF, 0.5 mL 1 completed Not Available [facility] 07/21/2023 20:29:27 COVID-19 vaccine, vector-nr, rS-ChAdOx1, PF, 0.5 mL 1 completed Not Available [facility] 07/21/2023 20:29:27 Influenza, split virus, quadrivalent, preservative 8 completed Not Available [facility] 07/21/2023 14:04:28 Influenza, split virus, quadrivalent, PF 1 completed Not Available [facility] 07/21/2023 14:04:29 Influenza, split virus, quadrivalent, PF 0 completed Not Available [facility] 07/21/2023 14:04:28 Influenza, MDCK, quadrivalent, preservative 9 completed Not Available [facility] 07/21/2023 14:04:28 pneumococcal polysaccharide PPV23 8 completed Not Available [facility] 07/21/2023 14:04:28 RSV, recombinant, protein subunit RSVpreF, adjuvant reconstituted, 0.5 mL, PF 5 completed Vani Desir, [address] [place], [address], [employer] 12/26/2024 12:33:15 COVID-19, mRNA, LNP-S, PF, 100 mcg/0.5mL dose or 50 mcg/0.25mL dose 1 completed Not Available [facility] 07/21/2023 14:04:28 COVID-19, mRNA, LNP-S, PF, 100 mcg/0.5mL dose or 50 mcg/0.25mL dose 1 completed Not Available [facility] 07/21/2023 14:04:28 COVID-19, mRNA, LNP-S, PF, 100 mcg/0.5mL dose or 50 mcg/0.25mL dose 1 completed Not Available [facility] 07/21/2023 14:04:28 Influenza, high-dose, trivalent, PF 5 completed Vani Desir, [address] [place], [address], [employer] 07/04/2025 08:39:06 COVID-19, mRNA, LNP-S, bivalent, PF, 30 mcg/0.3 mL dose 2 completed JENNIFER TREJO null, [employer] 08/19/2022 09:32:19 COVID-19, mRNA, LNP-S, PF, 50 mcg/0.5 mL 3 completed Perri Coates null, [employer] 04/14/2024 14:28:31 COVID-19, mRNA, LNP-S, PF, ernie-sucrose, 30 mcg/0.3 mL 4 completed Not Available [facility] 07/04/2025 08:17:04 Past Encounters Encounter ID Performer Location Encounter Start Date Encounter Closed Date Diagnosis/Indication Diagnosis SNOMED-CT Code Diagnosis ICD10 Code Diagnosis IMO Codes Diagnosis Note [id number] Vani WILSON Desir [address] [address] 07/04/2025 07:54:43 07/04/2025 08:50:12 Influenza vaccination given [id number] 9109 Z23 [id number] Essential hypertension 69905157 I10 Continue DASH diet, avoiding nsaids and hydrating well. Chronic ob structive pulmonary disease 48266264 J44.9 Continue nebs. Smoking cessation again encouraged . Tobacco de pendence caused by cigarettes 6188823329 1976150 F17.210 Smoking cessation again emphasized . Mixed hyperlipidemia 267 509330 E78.2 Low fat diet and continue statin therapy Health Concerns Section Related Observation LastModified by Organization Detai ls LastModified Time None Recorded Concern Status LastModified by Organization Details LastModified Time None Recorded Payers Encounter Date Sequence Insurance Name Policy Number Policy Robison Covered Member ID Robison Member ID Guarantor Name 07/04/2025 1 [place]MEDICARE REPLACEMENT HMO) [id number] Lia Alberts [id number] Lia Alberts Notes Date Note Type Note Provider Name and Address Organization Details Recorded Time 07/04/2025 text/html ROS as noted in the HPI Chief ComplaintFollow-up after cyst excision from nostril, follow-up after colonoscopy and EGD with polyp removal and biopsies, esophageal soreness after dilation, medication refillsHistory of Present IllnessLia Alberts is a female patient with a history of COPD, stage 3 CKD, and gastrointestinal issues who presents for follow-up after recent procedures and ongoing management of chronic conditions.The patient recently underwent cyst excision from her nostril, which has healed well. She also had a colonoscopy and EGD performed last week, during which the solar installation crew supervisor found one polyp, and took several biopsies. This was the third time her esophagus required dilation, and she reports it is still sore from the stretching.Regarding her respiratory status, the patient reports doing pretty good with her breathing and continues to use her nebulizer. She does not currently have any inhalers and does not feel she needs a rescue inhaler at this time. Her COPD appears stable.Her kidney function has improved, showing 2 points better results last month compared to March. The swelling in her feet and ankles is doing well. Her diarrhea has been improving since starting Fibercon and Iberogast.The patient has not been seeing cardiology recently, indicating she is doing okay from a cardiac standpoint. She received her flu shot today and reports overall stable condition with her chronic medical issues. Vani Desir, [address] [facility], [place], [address], [facility] [employer] 07/04/2025 09:22:34 OBGyn Episode No OBEpisode recorded.
--- OUTSIDE RECORDS SUMMARY | 2025-08-10 08:47 | XMS_ITS | Data Portability ---
Author Organization [facility] - [facility] Address [address] [place] [address] Assessment Encounter Date Assessment Date Assessment LastModified by Organization Details LastModified Time 04/14/2024 04/14/2024 Compression stockings -recommended using these daily to help prevent edema. Increase lasix to 40 mg x 3 days then go back to regular dose. Elevate feet throughout the day. Report any chest pain or shortness of breath. Encouraged her to mention the increased swelling in her feet at her cardiology appointment next month. Follow up with PCP as planned, sooner if needed [email or web address] Not available 04/16/2024 11:03:51 07/04/2025 07/04/2025 Lia Alberts, a female patient [...] Details Appointments FOLLOW UP 30 2025 08:30A M Christiane Desir APRN Not available Not available Not available Lab TSH, ultra-sen sitive, serum 2024 025 ESTELLA [facility] ([place]), [address] [facility], [place], [address], 04/04/2025 06:08:45 gastroint estinal pathogens DNA + RNA panel, ALEYDA+non-p robe, stool 2024 025 [facility] ([place]), [address] [place], [address], 04/10/2025 17:07:37 calprotec tin, stool 2024 025 [facility] ([place]), [address] [place], [address], 04/10/2025 17:07:38 O&P (ova & parasites ), stool 2024 025 [facility] ([place]), [address] [place], [address], 04/10/2025 17:07:39 CBC w/ auto diff 2024 025 [facility] ([place]), [address] [place], [address], 04/04/2025 06:08:44 CMP, serum or plasma 2024 025 [facility] ([place]), [address] [place], [address], 04/04/2025 06:08:45 amylase + lipase, serum 2024 025 [facility] ([place]), [address] [place], [address], 04/04/2025 06:08:45 CBC w/ auto diff 2024 025 [facility] ([place]), [address] [place], [address], 12/01/2024 11:08:09 CMP, serum or plasma 2024 025 [facility] ([place]), [address] [place], [address], 12/01/2024 11:08:10 PTH (parathyr oid hormone), intact, serum or plasma 2024 025 [facility] [address] [place], [address], 12/01/2024 11:08:11 magnesium , serum or plasma 2024 025 [facility]), [address] [place] [address], [address], 12/01/2024 11:08:11 vitamin D, 25-hydrox y, total, serum 2024 025 [facility] [place], [address], 12/01/2024 11:08:10 urinalysi s complete, reflex culture 2023 024 [facility]), [address] [place], [address], 08/05/2024 15:08:42 CBC w/ auto diff 2023 024 [facility]), [address] [place], [address], 08/05/2024 15:08:41 CMP, serum or plasma 2023 024 [facility] [address] [place] [address], [address], 08/05/2024 15:08:42 lipid panel, serum 2023 024 [facility] [address] [place] [address], [address], 08/05/2024 15:08:43 magnesium , serum or plasma 2023 024 [facility] [address] [place] [address], [address], 08/05/2024 15:08:44 vitamin D, 25-hydrox y, total, serum 2023 024 [facility] ([place]), [address], [place], [address], 08/05/2024 15:08:44 TSH + free T4, serum 2023 024 [facility] [place] ([place]), [address], [place], [address], 08/05/2024 15:08:40 Referral otolaryng ologist referral - Right nare polyp; first available appt 2024 025 [facility], [address], [place], [address], 05/03/2025 08:49:18 Procedures diagnosti c colonosco py (PROC) - Chronic diarrhea with weight loss, hx polyps in 2018 025 ESTELLA Key MD, [address], [place], [address], 07/03/2025 11:53:59 esophagog astroduod enoscopy with esophagea l dilation (PROC) - Dysphagia with hx esophagea l stricture 2024 025 [facility] Praneeth Key MD, [address], [place], [address], 07/06/2025 11:21:10 Surgeries None recorded. Imaging LDCT, chest, for lung cancer screening - due after august 122024 [address] (Scheduling), [address], [place], [address], 07/04/2025 12:05:56 MAMMO, screening , digital, bilateral - SAME DAY THE DEXA AND LDCT SCAN PLEASE 2024 025 [facility] (Scheduling), [address], [place], [address], 12/16/2024 13:20:05 LDCT, chest, for lung cancer screening [address] (Scheduling), [address], [place], [address], 08/08/2025 11:09:24 DEXA - SAME DAY THE MAMMO AND LDCT SCAN PLEASE 2024 025 [facility] (Scheduling), [address], [place], [address], 12/14/2024 16:43:15 LDCT, chest, for lung cancer screening - first available appt 2023 024 [facility] (Scheduling), [address], [place], [address], 08/17/2024 10:11:33 Medication Orders atorvasta tin 40 mg tablet 2024 025 [facility], [address] [place] [address], [address], 07/04/2025 09:42:34 furosemid e 20 mg tablet 2024 025 [facility], [address] [place] [address], [address], 07/04/2025 09:42:34 albuterol sulfate 2.5 mg/3 mL (0.083 %) solution for nebulizat ion 2024 025 [facility], [address] [place] [address], [address], 07/06/2025 10:17:26 omeprazol e 40 mg capsule,d elayed release 2024 025 [facility], [address] [place] [address], [address], 07/06/2025 10:17:27 calcitrio l 0.25 mcg capsule 2024 025 [facility], [address] [place] [address], [address], 06/22/2025 10:24:04 magnesium oxide 400 mg (241.3 mg magnesium ) tablet 2024 025 [facility], [address] [place] [address], [address], 04/03/2025 12:14:12 furosemid e 40 mg tablet 2024 025 [facility], [address] [place] [address], [address], 04/03/2025 12:14:13 Patient TargetsNo targets recorded. Patient InstructionsNo instructions recorded. Reason for Referral [employer] Referral fo r Polyp of nasal cavity and/or nasal sinus Right nare polyp; first available appt Referring Physician: Vani Desir, Family Medicine, Encounter Date: 04/03/2025 Results Created Date Observation Date Name Description Value Unit Range Abnormal Flag Note LastModifiedBy Organization Detail LastModifiedTime 03/28/20 24 03/29/2024 COMPR EHENS IVY METAB OLIC PANEL glucose 103 mg/dL 65-99 high Fasti ng refer ence inter leighann For someo ne witho ut known diabe barb, a gluco se value betwe en 100 and 125 mg/dL is consi stent with predi abete s and shoul d be confi rmed with a follo w-up test. Not Available [facility] [place] [facility] [address] [facility], [place], [address], 03/29/2024 14:30:16 03/28/20 24 03/29/2024 COMPR EHENS IVY METAB OLIC PANEL urea nitrogen (BUN) 16 mg/dL 7-25 normal Not Available [facility] [place] [facility] [address] [place], [address], 03/29/2024 14:30:16 03/28/20 24 03/29/2024 COMPR EHENS IVY METAB OLIC PANEL creatinine 1.36 mg/dL 0.60-1 .00 high Not Available [facility] [address] [place], [address], 03/29/2024 14:30:16 03/28/20 24 03/29/2024 COMPR EHENS IVY METAB OLIC PANEL eGFR 42 mL/mi n/1.7 3m2 > or = 60 low Not Available [facility] [address] [place], [address], 03/29/2024 14:30:16 03/28/20 24 03/29/2024 COMPR EHENS IVY METAB OLIC PANEL BUN/creatini ne ratio 12 (calc ) 6-22 normal Not Available [facility] [place] [facility] [address] [facility] [place], [address], 03/29/2024 14:30:16 03/28/20 24 03/29/2024 COMPR EHENS IVY METAB OLIC PANEL sodium 139 mmol/ L 135-14 6 normal Not Available [facility] [address] [place], [address], 03/29/2024 14:30:16 03/28/20 24 03/29/2024 COMPR EHENS IVY METAB OLIC PANEL potassium 3.5 mmol/ L 3.5-5. 3 normal Not Available [facility] [address] [place], [address], 03/29/2024 14:30:16 03/28/20 24 03/29/2024 COMPR EHENS IVY METAB OLIC PANEL chloride 98 mmol/ L 98-110 normal Not Available [facility] [address] [place], [address], 03/29/2024 14:30:16 03/28/20 24 03/29/2024 COMPR EHENS IVY METAB OLIC PANEL carbon dioxide 26 mmol/ L 20-32 normal Not Available [facility] [place] [facility] [address] [facility] [place], [address], 03/29/2024 14:30:16 03/28/20 24 03/29/2024 COMPR EHENS IVY METAB OLIC PANEL calcium 8.8 mg/dL 8.6-10 .4 normal Not Available [facility] [address] [place], [address], 03/29/2024 14:30:16 03/28/20 24 03/29/2024 COMPR EHENS IVY METAB OLIC PANEL protein, total 7.5 g/dL 6.1-8. 1 normal Not Available [facility] [address] [place], [address], 03/29/2024 14:30:16 03/28/20 24 03/29/2024 COMPR EHENS IVY METAB OLIC PANEL albumin 4.6 g/dL 3.6-5. 1 normal Not Available [facility] [address] [place], [address], 03/29/2024 14:30:16 03/28/20 24 03/29/2024 COMPR EHENS IVY METAB OLIC PANEL globulin 2.9 g/dL_ (calc ) 1.9-3. 7 normal Not Available [facility] [address] [place] [address], [address], 03/29/2024 14:30:16 03/28/20 24 03/29/2024 COMPR EHENS IVY METAB OLIC PANEL albumin/glob ulin ratio 1.6 (calc ) 1.0-2. 5 normal Not Available [facility] [place], [address], 03/29/2024 14:30:16 03/28/20 24 03/29/2024 COMPR EHENS IVY METAB OLIC PANEL bilirubin, total 0.5 mg/dL 0.2-1. 2 normal Not Available [facility] [place] [facility] [address] [place], [address], 03/29/2024 14:30:16 03/28/20 24 03/29/2024 COMPR EHENS IVY METAB OLIC PANEL alkaline phosphatase 101 U/L 37-153 normal Not Available [facility] [address], [place], [address], 03/29/2024 14:30:16 03/28/20 24 03/29/2024 COMPR EHENS IVY METAB OLIC PANEL AST 18 U/L 10-35 normal Not Available [facility] [address], [place], [address], 03/29/2024 14:30:16 03/28/20 24 03/29/2024 COMPR EHENS IVY METAB OLIC PANEL ALT 13 U/L 6-29 normal Not Available [facility] [place] [facility] [address] [place], [address], 03/29/2024 14:30:16 03/28/20 24 03/29/2024 CBC (INCL UDES DIFF/ PLT) white blood cell count 8.4 thous and/u L 3.8-10 .8 normal Not Available [facility] [address], [place], [address], 03/29/2024 14:30:16 03/28/20 24 03/29/2024 CBC (INCL UDES DIFF/ PLT) red blood cell count 4.42 chio on/uL 3.80-5 .10 normal Not Available [facility] [address], [place], [address], 03/29/2024 14:30:16 07/01/20 24 03/29/2024 CBC (INCL UDES DIFF/ PLT) hemoglobin 13.0 g/dL 11.7-1 5.5 normal Not Available [facility] [place] [facility] [address] [facility] [place], [address], 03/29/2024 14:30:16 03/28/20 24 03/29/2024 CBC (INCL UDES DIFF/ PLT) hematocrit 40.7 % 35.0-4 5.0 normal Not Available [facility] [place] [facility] [address] [facility] [place], [address], 03/29/2024 14:30:16 03/28/20 24 03/29/2024 CBC (INCL UDES DIFF/ PLT) MCV 92.1 fL 80.0-1 00.0 normal Not Available [facility] [place] [facility] [address] [facility] [place], [address], 03/29/2024 14:30:16 03/28/20 24 03/29/2024 CBC (INCL UDES DIFF/ PLT) MCH 29.4 pg 27.0-3 3.0 normal Not Available [facility] [place] [facility] [address] [facility] [place], [address], 03/29/2024 14:30:16 03/28/20 24 03/29/2024 CBC (INCL UDES DIFF/ PLT) MCHC 31.9 g/dL 32.0-3 6.0 low Not Available [facility] [place] [facility] [address] [facility] [place], [address], 03/29/2024 14:30:16 03/28/20 24 03/29/2024 CBC (INCL UDES DIFF/ PLT) RDW 13.8 % 11.0-1 5.0 normal Not Available [facility] [place] [facility] [address] [facility] [place], [address], 03/29/2024 14:30:16 03/28/20 24 03/29/2024 CBC (INCL UDES DIFF/ PLT) platelet count 343 thous and/u L 140-40 0 normal Not Available [facility] [place] [facility] [address] [facility] [place], [address], 03/29/2024 14:30:16 03/28/20 24 03/29/2024 CBC (INCL UDES DIFF/ PLT) MPV 10.5 fL 7.5-12 .5 normal Not Available [facility] [place] [facility] [address] [facility], [place], [address], 03/29/2024 14:30:16 03/28/20 24 03/29/2024 CBC (INCL UDES DIFF/ PLT) absolute neutrophils 5645 cells /uL 1500-7 800 normal Not Available [facility] [address] [facility], [place], [address], 03/29/2024 14:30:16 03/28/20 24 03/29/2024 CBC (INCL UDES DIFF/ PLT) absolute lymphocytes 1638 cells /uL 850-39 00 normal Not Available [facility] [place] [facility] [address] [facility] [place], [address], 03/29/2024 14:30:16 03/28/20 24 03/29/2024 CBC (INCL UDES DIFF/ PLT) absolute monocytes 806 cells /uL 200-95 0 normal Not Available [facility] [place] [facility] [address] [facility] [place], [address], 03/29/2024 14:30:16 03/28/20 24 03/29/2024 CBC (INCL UDES DIFF/ PLT) absolute eosinophils 244 cells /uL 15-500 normal Not Available [facility] [place] [facility] [address] [facility] [place], [address], 03/29/2024 14:30:16 03/28/20 24 03/29/2024 CBC (INCL UDES DIFF/ PLT) absolute basophils 67 cells /uL 0-200 normal Not Available [facility] [place] [facility] [address], [place], [address], 03/29/2024 14:30:16 03/28/20 24 03/29/2024 CBC (INCL UDES DIFF/ PLT) neutrophils 67.2 % normal Not Available [facility] [place] [facility] [address], [place], [address], 03/29/2024 14:30:16 03/28/20 24 03/29/2024 CBC (INCL UDES DIFF/ PLT) lymphocytes 19.5 % normal Not Available [facility] [place] [facility] [address], [place], [address], 03/29/2024 14:30:16 03/28/20 24 03/29/2024 CBC (INCL UDES DIFF/ PLT) monocytes 9.6 % normal Not Available [facility] [place] [facility] [address], [place], [address], 03/29/2024 14:30:16 03/28/20 24 03/29/2024 CBC (INCL UDES DIFF/ PLT) eosinophils 2.9 % normal Not Available [facility] [place] [facility] [address], [place], [address], 03/29/2024 14:30:16 03/28/20 24 03/29/2024 CBC (INCL UDES DIFF/ PLT) basophils 0.8 % normal Not Available [facility] [place] [facility] [address], [place], [address], 03/29/2024 14:30:16 03/28/20 24 03/29/2024 URINA LYSIS MICRO SCOPI C WBC > OR = 60 /hpf < or = 5 abnormal Not Available [facility] [place] [facility] [address], [place], [address], 03/29/2024 14:30:17 03/28/20 24 03/29/2024 URINA LYSIS MICRO SCOPI C RBC NONE SEEN /hpf < or = 2 normal Not Available [facility] [place] [facility] [address] [place], [address], 03/29/2024 14:30:17 03/28/20 24 03/29/2024 URINA LYSIS MICRO SCOPI C squamous epithelial cells NONE SEEN /hpf < or = 5 normal Not Available [facility] [place] [facility] [address] [place], [address], 03/29/2024 14:30:17 03/28/20 24 03/29/2024 URINA LYSIS MICRO SCOPI C bacteria MANY /hpf none seen abnormal Not Available [facility] [place] [facility] [address] [place], [address], 03/29/2024 14:30:17 03/28/20 24 03/29/2024 URINA LYSIS MICRO SCOPI C hyaline cast NONE SEEN /lpf none seen normal Not Available [facility] [place] [facility] [address] [place], [address], 03/29/2024 14:30:17 03/28/20 24 03/29/2024 URINA LYSIS MICRO SCOPI C note This urine was kathy zed for the prese nce of WBC, RBC, bacte sugar, casts , and other forme d eleme nts. Only those eleme nts seen were repor gagan. Not Available [facility] [address] [place], [address], 03/29/2024 14:30:17 03/28/20 24 03/29/2024 PTH, INTAC T WITHO UT CALCI UM parathyroid hormone, intact 103 pg/mL 16-77 high Inter preti ve Guide Intac t PTH Calci um ----- ----- ----- --- ----- ----- ----- -- Daly l Parat hyroi d Daly l Daly l Hypop courtney yroid ism Low or Low Daly l Low Hyper parat hyroi dism Prima ry Daly l or High High Secon stephen High Daly l or Low Terti franklin High High Non-P courtney yroid Hyper calce tony Low or Low Daly l High Not Available [facility] [place] [facility] [address] [place], [address], 03/29/2024 14:30:17 03/28/20 24 03/29/2024 VITAM IN D,25- OH,TO CISCO,I A vitamin D,25-oh,tota l,ia 61 NG/mL 30-100 normal Vitam in D Statu s 25-OH Vitam in D: Defic iency : <20 ng/mL Insuf ficie ncy: 20 - 29 ng/mL Optim al: > or = 30 ng/mL For 25-OH Vitam in D testi ng on patie nts on D2-cabello pplem entat ion and patie nts for whom quant itati on of D2 and D3 fract ions is requi red, the [facility] e[facility](TM ) 25-OH VIT D, (D2,D 3), LC/MS /MS is recom shira d: order code 16933 (john ents >2yrs ). See Note 1 Note 1 For addit ional infor yousif hahn refer to http: //shoaib millerQue stDia gnost ics.c om/fa q/FAQ 199 (This link is being provi ded for infor lorraine curtis/ educjulianna dickinson purpo ses only. ) Not Available [facility] [place] [facility] [address] [facility] [place], [address], 03/29/2024 14:30:18 03/28/20 24 03/29/2024 PROTE IN, TOTAL W/CRE AT, RANDO M URINE creatinine, random urine 38 mg/dL 20-275 normal Not Available [facility] [place] [facility] [address] [facility] [place], [address], 03/29/2024 14:30:18 03/28/20 24 03/29/2024 PROTE IN, TOTAL W/CRE AT, RANDO M URINE protein/crea tinine ratio 289 mg/g_ creat 24-184 high Not Available [facility] [place] [facility] [address] [place], [address], 03/29/2024 14:30:18 03/28/20 24 03/29/2024 PROTE IN, TOTAL W/CRE AT, RANDO M URINE protein/crea tinine ratio 0.289 mg/mg _crea t 0.024- 0.184 high Not Available [facility] [place] [facility] [address] [place], [address], 03/29/2024 14:30:18 03/28/20 24 03/29/2024 PROTE IN, TOTAL W/CRE AT, RANDO M URINE protein, total, random ur 11 mg/dL 5-[address] to have a [employer]™ copy faxed has been vale rodriguez ed. Queue d to: [phone] Not Available [facility] [place] [facility] [address] [place], [address], 03/29/2024 14:30:18 08/02/20 24 08/03/2024 TSH+F REE T4 TSH 0.833 uIU/m L 0.450- 4.500 normal Not Available [facility] ([facility]) [address] [place], [address], 08/05/2024 15:08:40 08/02/20 24 08/03/2024 TSH+F REE T4 T4,free(dire ct) 1.56 NG/dL 0.82-1 .77 normal Not Available [facility] ([facility]) [address], [place], [address], 08/05/2024 15:08:40 08/02/20 24 08/03/2024 CBC WITH DIFFE RENTI AL/PL ATELE T WBC 8.3 x10e3 /uL 3.4-10 .8 normal Not Available [facility] ([facility]) [address], [place], [address], 08/05/2024 15:08:41 08/02/20 24 08/03/2024 CBC WITH DIFFE RENTI AL/PL ATELE T RBC 4.01 x10e6 /uL 3.77-5 .28 normal Not Available [facility] ([facility]) [address], [place], [address], 08/05/2024 15:08:41 08/02/20 24 08/03/2024 CBC WITH DIFFE RENTI AL/PL ATELE T hemoglobin 12.3 g/dL 11.1-1 5.9 normal Not Available [facility] ([facility]) [address], [place], [address], 08/05/2024 15:08:41 08/02/20 24 08/03/2024 CBC WITH DIFFE RENTI AL/PL ATELE T hematocrit 38.1 % 34.0-4 6.6 normal Not Available [facility] ([facility]) [address], [place], [address], 08/05/2024 15:08:41 08/02/20 24 08/03/2024 CBC WITH DIFFE RENTI AL/PL ATELE T MCV 95 fL 79-97 normal Not Available [facility] ([facility]) [address] [place], [address], 08/05/2024 15:08:41 08/02/20 24 08/03/2024 CBC WITH DIFFE RENTI AL/PL ATELE T MCH 30.7 pg 26.6-3 3.0 normal Not Available [facility] ([facility]) [address] [place], [address], 08/05/2024 15:08:41 08/02/20 24 08/03/2024 CBC WITH DIFFE RENTI AL/PL ATELE T MCHC 32.3 g/dL 31.5-3 5.7 normal Not Available [facility] ([facility]) [address], [place], [address], 08/05/2024 15:08:41 08/02/20 24 08/03/2024 CBC WITH DIFFE RENTI AL/PL ATELE T RDW 14.4 % 11.7-1 5.4 Not Available [facility] ([facility]) [address], [place], [address], 08/05/2024 15:08:41 08/02/20 24 08/03/2024 CBC WITH DIFFE RENTI AL/PL ATELE T platelets 315 x10e3 /uL 150-45 0 normal Not Available [facility] ([facility]) [address], [place], [address], 08/05/2024 15:08:41 08/02/20 24 08/03/2024 CBC WITH DIFFE RENTI AL/PL ATELE T neutrophils 64 % not estab. normal Not Available [facility] ([facility]) [address], [place], [address], 08/05/2024 15:08:41 08/02/20 24 08/03/2024 CBC WITH DIFFE RENTI AL/PL ATELE T lymphs 24 % not estab. normal Not Available [facility] ([facility]) [address] [place], [address], 08/05/2024 15:08:41 08/02/20 24 08/03/2024 CBC WITH DIFFE RENTI AL/PL ATELE T monocytes 9 % not estab. normal Not Available [facility] ([facility]) [address] [place], [address], 08/05/2024 15:08:41 08/02/20 24 08/03/2024 CBC WITH DIFFE RENTI AL/PL ATELE T eos 2 % not estab. normal Not Available [facility] ([facility]) [address] [place], [address], 08/05/2024 15:08:41 08/02/20 24 08/03/2024 CBC WITH DIFFE RENTI AL/PL ATELE T basos 1 % not estab. normal Not Available [facility] ([facility]) [address], [place], [address], 08/05/2024 15:08:41 08/02/20 24 08/03/2024 CBC WITH DIFFE RENTI AL/PL ATELE T immature cells SUPERVISOR CRACK OFF Not Available [facility] ([facility]) [address], [place], [address], 08/05/2024 15:08:41 08/02/20 24 08/03/2024 CBC WITH DIFFE RENTI AL/PL ATELE T neutrophils (absolute) 5.3 x10e3 /uL 1.4-7. 0 normal Not Available [facility] ([facility]) [address] [place], [address], 08/05/2024 15:08:41 08/02/20 24 08/03/2024 CBC WITH DIFFE RENTI AL/PL ATELE T lymphs (absolute) 2.0 x10e3 /uL 0.7-3. 1 normal Not Available [facility] ([facility]) [address] [place], [address], 08/05/2024 15:08:41 08/02/20 24 08/03/2024 CBC WITH DIFFE RENTI AL/PL ATELE T monocytes(ab solute) 0.8 x10e3 /uL 0.1-0. 9 normal Not Available [facility] ([facility]) [address] [place], [address], 08/05/2024 15:08:41 08/02/20 24 08/03/2024 CBC WITH DIFFE RENTI AL/PL ATELE T eos (absolute) 0.1 x10e3 /uL 0.0-0. 4 normal Not Available [facility] ([facility]) [address], [place], [address], 08/05/2024 15:08:41 08/02/20 24 08/03/2024 CBC WITH DIFFE RENTI AL/PL ATELE T baso (absolute) 0.1 x10e3 /uL 0.0-0. 2 normal Not Available [facility] ([facility]) [address], [place], [address], 08/05/2024 15:08:41 08/02/20 24 08/03/2024 CBC WITH DIFFE RENTI AL/PL ATELE T immature granulocytes 0 % not estab. Not Available [facility] ([facility]) [address], [place], [address], 08/05/2024 15:08:41 08/02/20 24 08/03/2024 CBC WITH DIFFE RENTI AL/PL ATELE T immature grans (abs) 0.0 x10e3 /uL 0.0-0. 1 Not Available [facility] ([facility]) [address], [place], [address], 08/05/2024 15:08:41 08/02/20 24 08/03/2024 CBC WITH DIFFE RENTI AL/PL ATELE T NRBC SUPERVISOR CRACK OFF Not Available [facility] ([facility]) [address] [place], [address], 08/05/2024 15:08:41 08/02/20 24 08/03/2024 CBC WITH DIFFE RENTI AL/PL ATELE T hematology comments: SUPERVISOR CRACK OFF Not Available [facility] ([facility]) [address] [place], [address], 08/05/2024 15:08:41 08/02/20 24 08/03/2024 COMP. METAB OLIC PANEL (14) glucose 92 mg/dL 70-99 normal Not Available [facility] ([facility]) [address] [place], [address], 08/05/2024 15:08:41 08/02/20 24 08/03/2024 COMP. METAB OLIC PANEL (14) BUN 23 mg/dL 8-27 normal Not Available [facility] ([facility]) [address] [place], [address], 08/05/2024 15:08:41 08/02/20 24 08/03/2024 COMP. METAB OLIC PANEL (14) creatinine 1.39 mg/dL 0.57-1 .00 above high normal Not Available [facility] ([facility]) [address] [place], [address], 08/05/2024 15:08:41 08/02/20 24 08/03/2024 COMP. METAB OLIC PANEL (14) eGFR 41 mL/mi n/1.7 3 >59 below low normal Not Available [facility] ([facility]) [address] [place], [address], 08/05/2024 15:08:41 08/02/20 24 08/03/2024 COMP. METAB OLIC PANEL (14) BUN/creatini ne ratio 17 12-28 normal Not Available [facility] ([facility]) [address] [place], [address], 08/05/2024 15:08:41 08/02/20 24 08/03/2024 COMP. METAB OLIC PANEL (14) sodium 137 mmol/ L 134-14 4 normal Not Available [facility] ([facility]) [address] [place], [address], 08/05/2024 15:08:41 08/02/20 24 08/03/2024 COMP. METAB OLIC PANEL (14) potassium 3.8 mmol/ L 3.5-5. 2 normal Not Available [facility] ([facility]) [address] [place], [address], 08/05/2024 15:08:41 08/02/20 24 08/03/2024 COMP. METAB OLIC PANEL (14) chloride 97 mmol/ L 96-106 normal Not Available [facility] ([facility]) [address] [place], [address], 08/05/2024 15:08:41 08/02/20 24 08/03/2024 COMP. METAB OLIC PANEL (14) carbon dioxide, total 22 mmol/ L 20-29 normal Not Available [facility] ([facility]) [address] [place], [address], 08/05/2024 15:08:41 08/02/20 24 08/03/2024 COMP. METAB OLIC PANEL (14) calcium 9.3 mg/dL 8.7-10 .3 normal Not Available [facility] ([facility]) [address] [place], [address], 08/05/2024 15:08:41 08/02/20 24 08/03/2024 COMP. METAB OLIC PANEL (14) protein, total 7.4 g/dL 6.0-8. 5 normal Not Available [facility] ([facility]) [address] [place], [address], 08/05/2024 15:08:41 08/02/20 24 08/03/2024 COMP. METAB OLIC PANEL (14) albumin 4.7 g/dL 3.8-4. 8 normal Not Available [facility] ([facility]) [address] [place], [address], 08/05/2024 15:08:41 08/02/20 24 08/03/2024 COMP. METAB OLIC PANEL (14) globulin, total 2.7 g/dL 1.5-4. 5 Not Available [facility] ([facility]) [address] [place], [address], 08/05/2024 15:08:41 08/02/20 24 08/03/2024 COMP. METAB OLIC PANEL (14) bilirubin, total 0.3 mg/dL 0.0-1. 2 normal Not Available [facility] ([facility]) [address] [place], [address], 08/05/2024 15:08:41 08/02/20 24 08/03/2024 COMP. METAB OLIC PANEL (14) alkaline phosphatase 105 IU/L 44-121 normal Not Available [facility] ([facility]) [address], [place], [address], 08/05/2024 15:08:41 08/02/20 24 08/03/2024 COMP. METAB OLIC PANEL (14) AST (SGOT) 17 IU/L 0-40 normal Not Available [facility] ([facility]) [address], [place], [address], 08/05/2024 15:08:41 08/02/20 24 08/03/2024 COMP. METAB OLIC PANEL (14) ALT (SGPT) 16 IU/L 0-32 normal Not Available [facility] ([facility]) [address], [place], [address], 08/05/2024 15:08:41 08/02/20 24 08/03/2024 UA/M W/RFL X CULTU REVALORIEI NE specific gravity 1.007 1.005- 1.030 normal Not Available [facility] ([facility]) [address], [place], [address], 08/05/2024 15:08:42 08/02/20 24 08/03/2024 UA/M W/RFL X CULTU RE, ROUTI NE pH 7.0 5.0-7. 5 normal Not Available [facility] ([facility]) [address], [place], [address], 08/05/2024 15:08:42 08/02/20 24 08/03/2024 UA/M W/RFL X CULTU RE, ROUTI NE urine-color Yellow yellow Not Available [facility] ([facility]) [address], [place], [address], 08/05/2024 15:08:42 08/02/20 24 08/03/2024 UA/M W/RFL X CULTU RE, ROUTI NE appearance Clear clear Not Available [facility] ([facility]) [address], [place], [address], 08/05/2024 15:08:42 08/02/20 24 08/03/2024 UA/M W/RFL X CULTU RE, ROUTI NE WBC esterase 2+ negati ve abnormal Not Available [facility] ([facility]) [address], [place], [address], 08/05/2024 15:08:42 08/02/20 24 08/03/2024 UA/M W/RFL X CULTU RE, ROUTI NE protein Negati ve negati ve/tra ce Not Available [facility] ([facility]) [address] [place], [address], 08/05/2024 15:08:42 08/02/20 24 08/03/2024 UA/M W/RFL X CULTU RE, ROUTI NE glucose Negati ve negati ve Not Available [facility] ([facility]) [address] [place], [address], 08/05/2024 15:08:42 08/02/20 24 08/03/2024 UA/M W/RFL X CULTU RE, ROUTI NE ketones Negati ve negati ve Not Available [facility] ([facility]) [address] [place], [address], 08/05/2024 15:08:42 08/02/20 24 08/03/2024 UA/M W/RFL X CULTU RE, ROUTI NE occult blood Negati ve negati ve Not Available [facility] ([facility]) [address], [place], [address], 08/05/2024 15:08:42 08/02/20 24 08/03/2024 UA/M W/RFL X CULTU RE, ROUTI NE bilirubin Negati ve negati ve Not Available [facility] ([facility]) [address], [place], [address], 08/05/2024 15:08:42 08/02/20 24 08/03/2024 UA/M W/RFL X CULTU RE, ROUTI NE urobilinogen ,semi-qn 0.2 mg/dL 0.2-1. 0 normal Not Available [facility] ([facility]) [address], [place], [address], 08/05/2024 15:08:42 08/02/20 24 08/03/2024 UA/M W/RFL X CULTU RE, ROUTI NE nitrite, urine Negati ve negati ve Not Available [facility] ([facility]) [address], [place], [address], 08/05/2024 15:08:42 08/02/20 24 08/03/2024 UA/M W/RFL X CULTU RE, ROUTI NE microscopic examination See below: Micro scopi c was indic ated and was perfo rmed. Not Available [facility] ([facility]) [address], [place], [address], 08/05/2024 15:08:42 08/02/20 24 08/03/2024 UA/M W/RFL X CULTU RE, ROUTI NE WBC >30 /hpf 0 - 5 abnormal Not Available [facility] ([facility]) [address], [place], [address], 08/05/2024 15:08:42 08/02/20 24 08/03/2024 UA/M W/RFL X CULTU RE, ROUTI NE RBC None seen /hpf 0 - 2 Not Available [facility] ([facility]) [address], [place], [address], 08/05/2024 15:08:42 08/02/20 24 08/03/2024 UA/M W/RFL X CULTU RE, ROUTI NE epithelial cells (non renal) None seen /hpf 0 - 10 Not Available [facility] ([facility]) [address], [place], [address], 08/05/2024 15:08:42 08/02/20 24 08/03/2024 UA/M W/RFL X CULTU RE, ROUTI NE epithelial cells (renal) SUPERVISOR CRACK OFF Not Available [facility] ([facility]) [address], [place], [address], 08/05/2024 15:08:42 08/02/20 24 08/03/2024 UA/M W/RFL X CULTU RE, ROUTI NE casts None seen /lpf none seen Not Available [facility] ([facility]) [address], [place], [address], 08/05/2024 15:08:42 08/02/20 24 08/03/2024 UA/M W/RFL X CULTU RE, ROUTI NE cast type SUPERVISOR CRACK OFF Not Available [facility] ([facility]) [address], [place], [address], 08/05/2024 15:08:42 08/02/20 24 08/03/2024 UA/M W/RFL X CULTU RE, ROUTI NE crystals SUPERVISOR CRACK OFF Not Available [facility] ([facility]) [address], [place], [address], 08/05/2024 15:08:42 08/02/20 24 08/03/2024 UA/M W/RFL X CULTU RE, ROUTI NE crystal type SUPERVISOR CRACK OFF Not Available [facility] ([facility]) [address], [place], [address], 08/05/2024 15:08:42 08/02/20 24 08/03/2024 UA/M W/RFL X CULTU RE ROUTI NE mucus threads SUPERVISOR CRACK OFF Not Available [facility] ([facility]) [address], [place], [address], 08/05/2024 15:08:42 08/02/20 24 08/03/2024 UA/M W/RFL X CULTU RE, ROUTI NE bacteria None seen none seen/f ew Not Available [facility] ([facility]) [address], [place], [address], 08/05/2024 15:08:42 08/02/20 24 08/03/2024 UA/M W/RFL X CULTU RE ROUTI NE yeast SUPERVISOR CRACK OFF Not Available [facility] ([facility]) [address], [place], [address], 08/05/2024 15:08:42 08/02/20 24 08/03/2024 UA/M W/RFL X CULTU RE, ROUTI NE trichomonas SUPERVISOR CRACK OFF Not Available [facility] ([facility]) [address], [place], [address], 08/05/2024 15:08:42 08/02/20 24 08/03/2024 UA/M W/RFL X CULTU RE ROUTKiley NE comment SUPERVISOR CRACK OFF Not Available [facility] ([facility]) [address] [place], [address], 08/05/2024 15:08:42 08/02/20 24 08/03/2024 UA/M W/RFL X CULTU RE ROUTKiley NE microscopic examination SUPERVISOR CRACK OFF Not Available [facility] ([facility]) [address] [place], [address], 08/05/2024 15:08:42 08/02/20 24 08/03/2024 UA/M W/RFL X CULTU RE ROUTI NE urinalysis reflex Commen t This speci men has refle xed to a Urine Cultu re. Not Available [facility] ([facility]) [address], [place], [address], 08/05/2024 15:08:42 08/02/20 24 08/05/2024 UA/M W/RFL X CULTU RE, ROUTI NE urine culture, routine Final report abnormal Not Available [facility] ([facility]) [address], [place], [address], 08/05/2024 15:08:42 08/02/20 24 08/05/2024 UA/M W/RFL X CULTU RE, ROUTI NE result 1 Escher ichia coli abnormal Cefaz yoav <=4 ug/mL Cefaz yoav with an TOVA <=16 predi cts susce ptibi lity to the oral agent s cefac dylon, cefdi uriah, cefpo doxim e, cefpr ozil, cefur oxime , cepha lexin , and lorac arbef when used for thera py of uncom plica gagan urina ry tract infec tions due to E. coli, Klebs iella pneum oniae , and Prote us mirab ilis. Great er than 100,0 00 colon y formi ng units per mL Not Available [facility] ([facility]) [address], [place], [address], 08/05/2024 15:08:42 08/02/20 24 08/05/2024 UA/M W/RFL X CULTU RE, ROUTI NE antimicrobia l susceptibili ty Commen t S = Susce ptibl e; I = Inter media te; R = Resis tant P = Posit ivy; N = Negat ivy MICS are expre ssed in micro grams per mL Antib iotic RSLT# 1 RSLT# 2 RSLT# 3 RSLT# 4 Amoxi cilli n/Cla vulan ic Acid S Ampic illin S Cefep brianna S Ceftr iaxon e S Cefur oxime S Cipro floxa mckenna S Ertap enem S Genta micin S Imipe nem S Levof loxac in S Merop enem S Nitro furan toin S Piper acill in/Ta zobac senior S Tetra cycli ne S Tobra mycin S Trime thopr im/Cabello lfa S Not Available [facility] ([facility]) [address] [place], [address], 08/05/2024 15:08:42 08/02/20 24 08/03/2024 LIPID PANEL cholesterol, total 157 mg/dL 100-19 9 normal Not Available [facility] ([facility]) [address] [place], [address], 08/05/2024 15:08:43 08/02/20 24 08/03/2024 LIPID PANEL triglyceride s 135 mg/dL 0-149 normal Not Available [facility] ([facility]) [address] [place], [address], 08/05/2024 15:08:43 08/02/20 24 08/03/2024 LIPID PANEL HDL cholesterol 42 mg/dL >39 normal Not Available [facility] ([facility]) [address] [place], [address], 08/05/2024 15:08:43 08/02/20 24 08/03/2024 LIPID PANEL VLDL cholesterol susan 24 mg/dL 5-40 Not Available [facility] ([facility]) [address] [place], [address], 08/05/2024 15:08:43 08/02/20 24 08/03/2024 LIPID PANEL LDL chol calc ([facility]) 91 mg/dL 0-99 Not Available [facility] ([facility]) [address] [place], [address], 08/05/2024 15:08:43 08/02/20 24 08/03/2024 LIPID PANEL LDL calc comment: SUPERVISOR CRACK OFF Not Available [facility] ([facility]) [address] [place], [address], 08/05/2024 15:08:43 08/02/20 24 08/03/2024 VITAM IN D, 25-HY DROXY vitamin D, 25-hydroxy 55.7 NG/mL 30.0-1 00.0 Vitam in D defic iency has been defin ed by the Insti tute of Medic ine and an Endoc rine Socie ty pract ice guide line as a level of serum 25-OH vitam in D less than 20 ng/mL (1,2) . The Endoc rine Socie ty went on to furth er defin e vitam in D insuf ficie ncy as a level betwe en 21 and 29 ng/mL (2). 1. IOM (Inst itute of Medic ine). 2009. Dieta ry refer ence intak es for calci um and D. Eleazar duron [place]: The [facility] Press . 2. Marilia florian MF, [place], Brea off-F errar i RODRIGUEZ, et al. Evalu ation , treat ment, and preve ntion of vitam in D defic iency : an Endoc rine Socie ty clini susan pract ice guide line. JCEM. 2010; 96(7) :1911 -30. Not Available [facility] ([facility]) [address] [place], [address], 08/05/2024 15:08:44 08/02/20 24 08/03/2024 MAGNE SIUM magnesium 1.4 mg/dL 1.6-2. 3 below low normal Not Available [facility] ([facility]) [address] [place], [address], 08/05/2024 15:08:44 12/01/19 25 12/01/2024 CBC WITH DIFFE RENTI AL/PL ATELE T WBC 6.7 x10e3 /uL 3.4-10 .8 normal Not Available [facility] ([facility]) [address] [place], [address], 12/01/2024 11:08:09 12/01/19 25 12/01/2024 CBC WITH DIFFE RENTI AL/PL ATELE T RBC 4.08 x10e6 /uL 3.77-5 .28 normal Not Available [facility] ([facility]) [address] [place], [address], 12/01/2024 11:08:09 12/01/19 25 12/01/2024 CBC WITH DIFFE RENTI AL/PL ATELE T hemoglobin 12.2 g/dL 11.1-1 5.9 normal Not Available [facility] ([facility]) [address] [place], [address], 12/01/2024 11:08:09 12/01/19 25 12/01/2024 CBC WITH DIFFE RENTI AL/PL ATELE T hematocrit 37.9 % 34.0-4 6.6 normal Not Available [facility] ([facility]) [address] [place], [address], 12/01/2024 11:08:09 12/01/19 25 12/01/2024 CBC WITH DIFFE RENTI AL/PL ATELE T MCV 93 fL 79-97 normal Not Available [facility] ([facility]) [address] [place], [address], 12/01/2024 11:08:09 12/01/19 25 12/01/2024 CBC WITH DIFFE RENTI AL/PL ATELE T MCH 29.9 pg 26.6-3 3.0 normal Not Available [facility] ([facility]) [address] [place], [address], 12/01/2024 11:08:09 12/01/19 25 12/01/2024 CBC WITH DIFFE RENTI AL/PL ATELE T MCHC 32.2 g/dL 31.5-3 5.7 normal Not Available [facility] ([facility]) [address] [place], [address], 12/01/2024 11:08:09 12/01/19 25 12/01/2024 CBC WITH DIFFE RENTI AL/PL ATELE T RDW 13.0 % 11.7-1 5.4 Not Available [facility] ([facility]) [address], [place], [address], 12/01/2024 11:08:09 12/01/19 25 12/01/2024 CBC WITH DIFFE RENTI AL/PL ATELE T platelets 354 x10e3 /uL 150-45 0 normal Not Available [facility] ([facility]) [address], [place], [address], 12/01/2024 11:08:09 12/01/19 25 12/01/2024 CBC WITH DIFFE RENTI AL/PL ATELE T neutrophils 50 % not estab. normal Not Available [facility] ([facility]) [address], [place], [address], 12/01/2024 11:08:09 12/01/19 25 12/01/2024 CBC WITH DIFFE RENTI AL/PL ATELE T lymphs 35 % not estab. normal Not Available [facility] ([facility]) [address], [place], [address], 12/01/2024 11:08:09 12/01/19 25 12/01/2024 CBC WITH DIFFE RENTI AL/PL ATELE T monocytes 11 % not estab. normal Not Available [facility] ([facility]) [address], [place], [address], 12/01/2024 11:08:09 12/01/19 25 12/01/2024 CBC WITH DIFFE RENTI AL/PL ATELE T eos 3 % not estab. normal Not Available [facility] ([facility]) [address], [place], [address], 12/01/2024 11:08:09 12/01/19 25 12/01/2024 CBC WITH DIFFE RENTI AL/PL ATELE T basos 1 % not estab. normal Not Available [facility] ([facility]) [address] [place], [address], 12/01/2024 11:08:09 12/01/19 25 12/01/2024 CBC WITH DIFFE RENTI AL/PL ATELE T immature cells SUPERVISOR CRACK OFF Not Available [facility] ([facility]) [address] [place], [address], 12/01/2024 11:08:09 12/01/19 25 12/01/2024 CBC WITH DIFFE RENTI AL/PL ATELE T neutrophils (absolute) 3.4 x10e3 /uL 1.4-7. 0 normal Not Available [facility] ([facility]) [address] [place], [address], 12/01/2024 11:08:09 12/01/19 25 12/01/2024 CBC WITH DIFFE RENTI AL/PL ATELE T lymphs (absolute) 2.4 x10e3 /uL 0.7-3. 1 normal Not Available [facility] ([facility]) [address] [place], [address], 12/01/2024 11:08:09 12/01/19 25 12/01/2024 CBC WITH DIFFE RENTI AL/PL ATELE T monocytes(ab solute) 0.7 x10e3 /uL 0.1-0. 9 normal Not Available [facility] ([facility]) [address] [place], [address], 12/01/2024 11:08:09 12/01/19 25 12/01/2024 CBC WITH DIFFE RENTI AL/PL ATELE T eos (absolute) 0.2 x10e3 /uL 0.0-0. 4 normal Not Available [facility] ([facility]) [address] [place], [address], 12/01/2024 11:08:09 12/01/19 25 12/01/2024 CBC WITH DIFFE RENTI AL/PL ATELE T baso (absolute) 0.1 x10e3 /uL 0.0-0. 2 normal Not Available [facility] ([facility]) [address], [place], [address], 12/01/2024 11:08:09 12/01/19 25 12/01/2024 CBC WITH DIFFE RENTI AL/PL ATELE T immature granulocytes 0 % not estab. Not Available [facility] ([facility]) [address], [place], [address], 12/01/2024 11:08:09 12/01/19 25 12/01/2024 CBC WITH DIFFE RENTI AL/PL ATELE T immature grans (abs) 0.0 x10e3 /uL 0.0-0. 1 Not Available [facility] ([facility]) [address], [place], [address], 12/01/2024 11:08:09 12/01/19 25 12/01/2024 CBC WITH DIFFE RENTI AL/PL ATELE T NRBC SUPERVISOR CRACK OFF Not Available [facility] ([facility]) [address], [place], [address], 12/01/2024 11:08:09 12/01/19 25 12/01/2024 CBC WITH DIFFE RENTI AL/PL ATELE T hematology comments: SUPERVISOR CRACK OFF Not Available [facility] ([facility]) [address], [place], [address], 12/01/2024 11:08:09 12/01/19 25 12/01/2024 COMP. METAB OLIC PANEL (14) glucose 88 mg/dL 70-99 normal Not Available [facility] ([facility]) [address] [place], [address], 12/01/2024 11:08:10 12/01/19 25 12/01/2024 COMP. METAB OLIC PANEL (14) BUN 22 mg/dL 8-27 normal Not Available [facility] ([facility]) [address] [place], [address], 12/01/2024 11:08:10 12/01/19 25 12/01/2024 COMP. METAB OLIC PANEL (14) creatinine 1.57 mg/dL 0.57-1 .00 above high normal Not Available [facility] ([facility]) [address] [place], [address], 12/01/2024 11:08:10 12/01/19 25 12/01/2024 COMP. METAB OLIC PANEL (14) eGFR 35 mL/mi n/1.7 3 >59 below low normal Not Available [facility] ([facility]) [address], [place], [address], 12/01/2024 11:08:10 12/01/19 25 12/01/2024 COMP. METAB OLIC PANEL (14) BUN/creatini ne ratio 14 12-28 normal Not Available [facility] ([facility]) [address] [place], [address], 12/01/2024 11:08:10 12/01/19 25 12/01/2024 COMP. METAB OLIC PANEL (14) sodium 131 mmol/ L 134-14 4 below low normal Not Available [facility] ([facility]) [address] [place], [address], 12/01/2024 11:08:10 12/01/19 25 12/01/2024 COMP. METAB OLIC PANEL (14) potassium 4.3 mmol/ L 3.5-5. 2 normal Not Available [facility] ([facility]) [address] [place], [address], 12/01/2024 11:08:10 12/01/19 25 12/01/2024 COMP. METAB OLIC PANEL (14) chloride 91 mmol/ L 96-106 below low normal Not Available [facility] ([facility]) [address] [place], [address], 12/01/2024 11:08:10 12/01/19 25 12/01/2024 COMP. METAB OLIC PANEL (14) carbon dioxide, total 22 mmol/ L 20-29 normal Not Available [facility] ([facility]) [address] [place], [address], 12/01/2024 11:08:10 12/01/19 25 12/01/2024 COMP. METAB OLIC PANEL (14) calcium 9.8 mg/dL 8.7-10 .3 normal Not Available [facility] ([facility]) [address] [place], [address], 12/01/2024 11:08:10 12/01/19 25 12/01/2024 COMP. METAB OLIC PANEL (14) protein, total 7.4 g/dL 6.0-8. 5 normal Not Available [facility] ([facility]) [address] [place], [address], 12/01/2024 11:08:10 12/01/19 25 12/01/2024 COMP. METAB OLIC PANEL (14) albumin 4.7 g/dL 3.8-4. 8 normal Not Available [facility] ([facility]) [address] [place], [address], 12/01/2024 11:08:10 12/01/19 25 12/01/2024 COMP. METAB OLIC PANEL (14) globulin, total 2.7 g/dL 1.5-4. 5 Not Available [facility] ([facility]) [address] [place], [address], 12/01/2024 11:08:10 12/01/19 25 12/01/2024 COMP. METAB OLIC PANEL (14) bilirubin, total 0.4 mg/dL 0.0-1. 2 normal Not Available [facility] ([facility]) [address], [place], [address], 12/01/2024 11:08:10 12/01/19 25 12/01/2024 COMP. METAB OLIC PANEL (14) alkaline phosphatase 97 IU/L 44-121 normal Not Available [facility] ([facility]) [address], [place], [address], 12/01/2024 11:08:10 12/01/19 25 12/01/2024 COMP. METAB OLIC PANEL (14) AST (SGOT) 23 IU/L 0-40 normal Not Available [facility] ([facility]) [address] [place], [address], 12/01/2024 11:08:10 12/01/19 25 12/01/2024 COMP. METAB OLIC PANEL (14) ALT (SGPT) 14 IU/L 0-32 normal Not Available [facility] ([facility]) [address], [place], [address], 12/01/2024 11:08:10 12/01/19 25 12/01/2024 VITAM IN D, 25-HY DROXY vitamin D, 25-hydroxy 54.9 NG/mL 30.0-1 00.0 Vitam in D defic iency has been defin ed by the Insti tute of Medic ine and an Endoc rine Socie ty pract ice guide line as a level of serum 25-OH vitam in D less than 20 ng/mL (1,2) . The Endoc rine Socie ty went on to furth er defin e vitam in D insuf ficie ncy as a level betwe en 21 and 29 ng/mL (2). 1. IOM (Inst itute of Medic ine). 2009. Dieta ry refer ence intterry es for calci um and D. Eleazar duron DC: The [facility] Press . 2. Marilia florian MF, [place], Brea off-F errar i RODRIGUEZ, et al. Evalu ation , treat ment, and preve ntion of vitam in D defic iency : an Endoc rine Socie ty clini susan pract ice guide line. JCEM. 2010; 96(7) :1911 -30. Not Available [facility] ([facility]) [address], [place], [address], 12/01/2024 11:08:10 12/01/19 25 12/01/2024 MAGNE SIUM magnesium 1.9 mg/dL 1.6-2. 3 normal Not Available [facility] ([facility]) [address], [place], [address], 12/01/2024 11:08:11 12/01/19 25 12/01/2024 PTH, INTAC T PTH, intact 54 pg/mL 15-65 normal Not Available [facility] ([facility]) [address], [place], [address], 12/01/2024 11:08:11 04/03/20 25 04/04/2025 CBC WITH DIFFE RENTI AL/PL ATELE T WBC 6.9 x10e3 /uL 3.4-10 .8 normal Not Available [facility] ([facility]) [address], [place], [address], 04/04/2025 06:08:43 04/03/20 25 04/04/2025 CBC WITH DIFFE RENTI AL/PL ATELE T RBC 4.03 x10e6 /uL 3.77-5 .28 normal Not Available [facility] ([facility]) [address], [place], [address], 04/04/2025 06:08:43 04/03/20 25 04/04/2025 CBC WITH DIFFE RENTI AL/PL ATELE T hemoglobin 12.4 g/dL 11.1-1 5.9 normal Not Available [facility] ([facility]) [address] [place], [address], 04/04/2025 06:08:43 04/03/20 25 04/04/2025 CBC WITH DIFFE RENTI AL/PL ATELE T hematocrit 38.1 % 34.0-4 6.6 normal Not Available [facility] ([facility]) [address], [place], [address], 04/04/2025 06:08:43 04/03/20 25 04/04/2025 CBC WITH DIFFE RENTI AL/PL ATELE T MCV 95 fL 79-97 normal Not Available [facility] ([facility]) [address], [place], [address], 04/04/2025 06:08:43 04/03/2004/04/2025 CBC WITH DIFFE RENTI AL/PL ATELE T MCH 30.8 pg 26.6-3 3.0 normal Not Available [facility] ([facility]) [address], [place], [place], [address], 04/04/2025 06:08:43 04/03/2004/04/2025 CBC WITH DIFFE RENTI AL/PL ATELE T MCHC 32.5 g/dL 31.5-3 5.7 normal Not Available [facility] ([facility]) [address] [place], [address], 04/04/2025 06:08:43 04/03/2004/04/2025 CBC WITH DIFFE RENTI AL/PL ATELE T RDW 12.9 % 11.7-1 5.4 Not Available [facility] ([facility]) [address] [place], [address], 04/04/2025 06:08:43 04/03/2004/04/2025 CBC WITH DIFFE RENTI AL/PL ATELE T platelets 299 x10e3 /uL 150-45 0 normal Not Available [facility] ([facility]) [address] [place], [address], 04/04/2025 06:08:43 04/03/20 25 04/04/2025 CBC WITH DIFFE RENTI AL/PL ATELE T neutrophils 52 % not estab. normal Not Available [facility] ([facility]) [address], [place], [address], 04/04/2025 06:08:43 04/03/20 25 04/04/2025 CBC WITH DIFFE RENTI AL/PL ATELE T lymphs 34 % not estab. normal Not Available [facility] ([facility]) [address], [place], [address], 04/04/2025 06:08:43 04/03/20 25 04/04/2025 CBC WITH DIFFE RENTI AL/PL ATELE T monocytes 10 % not estab. normal Not Available [facility] ([facility]) [address], [place], [address], 04/04/2025 06:08:43 04/03/20 25 04/04/2025 CBC WITH DIFFE RENTI AL/PL ATELE T eos 3 % not estab. normal Not Available [facility] ([facility]) [address] [place], [address], 04/04/2025 06:08:43 04/03/20 25 04/04/2025 CBC WITH DIFFE RENTI AL/PL ATELE T basos 1 % not estab. normal Not Available [facility] ([facility]) [address], [place], [address], 04/04/2025 06:08:43 04/03/20 25 04/04/2025 CBC WITH DIFFE RENTI AL/PL ATELE T immature cells SUPERVISOR CRACK OFF Not Available [facility] ([facility]) [address] [place], [address], 04/04/2025 06:08:43 04/03/20 25 04/04/2025 CBC WITH DIFFE RENTI AL/PL ATELE T neutrophils (absolute) 3.7 x10e3 /uL 1.4-7. 0 normal Not Available [facility] ([facility]) [address], [place], [address], 04/04/2025 06:08:43 04/03/20 25 04/04/2025 CBC WITH DIFFE RENTI AL/PL ATELE T lymphs (absolute) 2.3 x10e3 /uL 0.7-3. 1 normal Not Available [facility] ([facility]) [address], [place], [address], 04/04/2025 06:08:43 04/03/20 25 04/04/2025 CBC WITH DIFFE RENTI AL/PL ATELE T monocytes(ab solute) 0.7 x10e3 /uL 0.1-0. 9 normal Not Available [facility] ([facility]) [address], [place], [address], 04/04/2025 06:08:43 04/03/20 25 04/04/2025 CBC WITH DIFFE RENTI AL/PL ATELE T eos (absolute) 0.2 x10e3 /uL 0.0-0. 4 normal Not Available [facility] ([facility]) [address], [place], [address], 04/04/2025 06:08:43 04/03/20 25 04/04/2025 CBC WITH DIFFE RENTI AL/PL ATELE T baso (absolute) 0.0 x10e3 /uL 0.0-0. 2 normal Not Available [facility] ([facility]) [address], [place], [address], 04/04/2025 06:08:43 04/03/20 25 04/04/2025 CBC WITH DIFFE RENTI AL/PL ATELE T immature granulocytes 0 % not estab. Not Available [facility] ([facility]) [address], [place], [address], 04/04/2025 06:08:43 04/03/20 25 04/04/2025 CBC WITH DIFFE RENTI AL/PL ATELE T immature grans (abs) 0.0 x10e3 /uL 0.0-0. 1 Not Available [facility] ([facility]) [address], [place], [address], 04/04/2025 06:08:43 04/03/20 25 04/04/2025 CBC WITH DIFFE RENTI AL/PL ATELE T NRBC [employer]PER[employer] CRACK OFF Not Available [facility] ([facility]) [address], [place], [address], 04/04/2025 06:08:43 04/03/20 25 04/04/2025 CBC WITH DIFFE RENTI AL/PL ATELE T hematology comments: SUPERVISOR CRACK OFF Not Available [facility] ([facility]) [address], [place], [address], 04/04/2025 06:08:43 04/03/20 25 04/04/2025 COMP. METAB OLIC PANEL (14) glucose 86 mg/dL 70-99 normal Not Available [facility] ([facility]) [address] [place], [address], 04/04/2025 06:08:45 04/03/20 25 04/04/2025 COMP. METAB OLIC PANEL (14) BUN 27 mg/dL 8-27 normal Not Available [facility] ([facility]) [address] [place], [address], 04/04/2025 06:08:45 04/03/20 25 04/04/2025 COMP. METAB OLIC PANEL (14) creatinine 1.49 mg/dL 0.57-1 .00 above high normal Not Available [facility] ([facility]) [address] [place], [address], 04/04/2025 06:08:45 04/03/20 25 04/04/2025 COMP. METAB OLIC PANEL (14) eGFR 37 mL/mi n/1.7 3 >59 below low normal Not Available [facility] ([facility]) [address] [place], [address], 04/04/2025 06:08:45 04/03/20 25 04/04/2025 COMP. METAB OLIC PANEL (14) BUN/creatini ne ratio 18 12-28 normal Not Available [facility] ([facility]) [address] [place], [address], 04/04/2025 06:08:45 04/03/20 25 04/04/2025 COMP. METAB OLIC PANEL (14) sodium 130 mmol/ L 134-14 4 below low normal Not Available [facility] ([facility]) [address] [place], [address], 04/04/2025 06:08:45 04/03/20 25 04/04/2025 COMP. METAB OLIC PANEL (14) potassium 4.0 mmol/ L 3.5-5. 2 normal Not Available [facility] ([facility]) [address] [place], [address], 04/04/2025 06:08:45 04/03/20 25 04/04/2025 COMP. METAB OLIC PANEL (14) chloride 92 mmol/ L 96-106 below low normal Not Available [facility] ([facility]) [address] [place], [address], 04/04/2025 06:08:45 04/03/20 25 04/04/2025 COMP. METAB OLIC PANEL (14) carbon dioxide, total 18 mmol/ L 20-29 below low normal Not Available [facility] ([facility]) [address] [place], [address], 04/04/2025 06:08:45 04/03/20 25 04/04/2025 COMP. METAB OLIC PANEL (14) calcium 9.3 mg/dL 8.7-10 .3 normal Not Available [facility] ([facility]) [address] [place], [address], 04/04/2025 06:08:45 04/03/20 25 04/04/2025 COMP. METAB OLIC PANEL (14) protein, total 7.3 g/dL 6.0-8. 5 normal Not Available [facility] ([facility]) [address] [place], [address], 04/04/2025 06:08:45 04/03/20 25 04/04/2025 COMP. METAB OLIC PANEL (14) albumin 4.6 g/dL 3.8-4. 8 normal Not Available [facility] ([facility]) [address] [place], [address], 04/04/2025 06:08:45 04/03/20 25 04/04/2025 COMP. METAB OLIC PANEL (14) globulin, total 2.7 g/dL 1.5-4. 5 Not Available [facility] ([facility]) [address] [place], [address], 04/04/2025 06:08:45 04/03/20 25 04/04/2025 COMP. METAB OLIC PANEL (14) bilirubin, total 0.4 mg/dL 0.0-1. 2 normal Not Available [facility] ([facility]) [address] [place], [address], 04/04/2025 06:08:45 04/03/20 25 04/04/2025 COMP. METAB OLIC PANEL (14) alkaline phosphatase 96 IU/L 44-121 normal Not Available [facility] ([facility]) [address] [place], [address], 04/04/2025 06:08:45 04/03/20 25 04/04/2025 COMP. METAB OLIC PANEL (14) AST (SGOT) 20 IU/L 0-40 normal Not Available [facility] ([facility]) [address] [place], [address], 04/04/2025 06:08:45 04/03/20 25 04/04/2025 COMP. METAB OLIC PANEL (14) ALT (SGPT) 12 IU/L 0-32 normal Not Available [facility] ([facility]) [address], [place], [address], 04/04/2025 06:08:45 04/03/2004/04/2025 DELORIS+L IPASE amylase 63 U/L 31-110 normal Not Available [facility] ([facility]) [address] [place], [address], 04/04/2025 06:08:45 04/03/20 25 04/04/2025 DELORIS+L IPASE lipase 25 U/L 14-85 normal Not Available [facility] ([facility]) [address] [place], [address], 04/04/2025 06:08:45 04/03/20 25 04/04/2025 TSH RFX ON ABNOR MAL TO FREE T4 TSH 0.435 uIU/m L 0.450- 4.500 below low normal Not Available [facility] ([facility]) [address] [place], [address], 04/04/2025 06:08:45 04/03/2004/04/2025 TSH RFX ON ABNOR MAL TO FREE T4 T4,free (direct) 1.68 NG/dL 0.82-1 .77 normal Not Available [facility] ([facility]) [address] [place], [address], 04/04/2025 06:08:45 04/05/2004/06/2025 GI PROFI LE, STOOL , PCR campylobacte r Not Detect ed not detect ed Not Available [facility] ([facility]) [address] [place], [address], 04/10/2025 17:07:37 04/05/20 25 04/06/2025 GI PROFI LE, STOOL , PCR C difficile toxin A/B Not Detect ed not detect ed Not Available [facility] ([facility]) [address] [place], [address], 04/10/2025 17:07:37 04/05/20 25 04/06/2025 GI PROFI LE, STOOL , PCR plesiomonas shigelloides Not Detect ed not detect ed Not Available [facility] ([facility]) [address] [place], [address], 04/10/2025 17:07:37 04/05/20 25 04/06/2025 GI PROFI LE, STOOL , PCR salmonella Not Detect ed not detect ed Not Available [facility] ([facility]) [address] [place], [address], 04/10/2025 17:07:37 04/05/20 25 04/06/2025 GI PROFI LE, STOOL , PCR vibrio Not Detect ed not detect ed Not Available [facility] ([facility]) [address] [place], [address], 04/10/2025 17:07:37 04/05/20 25 04/06/2025 GI PROFI LE, STOOL , PCR vibrio cholerae Not Detect ed not detect ed Not Available [facility] ([facility]) [address] [place], [address], 04/10/2025 17:07:37 04/05/20 25 04/06/2025 GI PROFI LE, STOOL , PCR yersinia enterocoliti ca Not Detect ed not detect ed Not Available [facility] ([facility]) [address] [place], [address], 04/10/2025 17:07:37 04/05/20 25 04/06/2025 GI PROFI LE, STOOL , PCR enteroaggreg ative E coli Not Detect ed not detect ed Not Available [facility] ([facility]) [address] [place], [address], 04/10/2025 17:07:37 04/05/20 25 04/06/2025 GI PROFI LE, STOOL , PCR enteropathog enic E coli Not Detect ed not detect ed Not Available [facility] ([facility]) [address] [place], [address], 04/10/2025 17:07:37 04/05/20 25 04/06/2025 GI PROFI LE, STOOL , PCR enterotoxige filiberto E coli Not Detect ed not detect ed Not Available [facility] ([facility]) [address] [place], [address], 04/10/2025 17:07:37 04/05/20 25 04/06/2025 GI PROFI LE, STOOL , PCR shiga-toxin- producing E coli Not Detect ed not detect ed Not Available [facility] ([facility]) [address] [place], [address], 04/10/2025 17:07:37 04/05/20 25 04/06/2025 GI PROFI LE, STOOL , PCR E coli O157 Not applic able not detect ed Not Available [facility] ([facility]) [address] [place], [address], 04/10/2025 17:07:37 04/05/20 25 04/06/2025 GI PROFI LE, STOOL , PCR shigella/ent eroinvasive E coli Not Detect ed not detect ed Not Available [facility] ([facility]) [address] [place], [address], 04/10/2025 17:07:37 04/05/20 25 04/06/2025 GI PROFI LE, STOOL , PCR cryptosporid ium Not Detect ed not detect ed Not Available [facility] ([facility]) [address] [place], [address], 04/10/2025 17:07:37 04/05/20 25 04/06/2025 GI PROFI LE, STOOL , PCR cyclospora cayetanensis Not Detect ed not detect ed Not Available [facility] ([facility]) [address] [place], [address], 04/10/2025 17:07:37 04/05/20 25 04/06/2025 GI PROFI LE, STOOL , PCR entamoeba histolytica Not Detect ed not detect ed Not Available [facility] ([facility]) [address] [place], [address], 04/10/2025 17:07:37 04/05/20 25 04/06/2025 GI PROFI LE, STOOL , PCR giardia lamblia Not Detect ed not detect ed Not Available [facility] ([facility]) [address] [place], [address], 04/10/2025 17:07:37 04/05/20 25 04/06/2025 GI PROFI LE, STOOL , PCR adenovirus F 40/41 Not Detect ed not detect ed Not Available [facility] ([facility]) [address] [place], [address], 04/10/2025 17:07:37 04/05/20 25 04/06/2025 GI PROFI LE, STOOL , PCR astrovirus Not Detect ed not detect ed Not Available [facility] ([facility]) [address] [place], [address], 04/10/2025 17:07:37 04/05/20 25 04/06/2025 GI PROFI LE, STOOL , PCR norovirus GI/gii Not Detect ed not detect ed Not Available [facility] ([facility]) [address] [place], [address], 04/10/2025 17:07:37 04/05/20 25 04/06/2025 GI PROFI LE, STOOL , PCR rotavirus A Not Detect ed not detect ed Not Available [facility] ([facility]) [address] [place], [address], 04/10/2025 17:07:37 04/05/20 25 04/06/2025 GI PROFI LE, STOOL , PCR sapovirus Not Detect ed not detect ed Not Available [facility] ([facility]) [address], [place], [address], 04/10/2025 17:07:37 04/05/20 25 04/06/2025 CALPR OTECT IN, FECAL calprotectin , fecal 86 ug/g 0-120 Shannon ntrat ion Inter preta tion Follo w-Up < 5 - 50 ug/g Daly l None >50 -120 ug/g Borde rline Re-ev aluat e in 4-6 weeks >120 ug/g Abnor mal Repea t as clini bucky indic ated Not Available [facility] ([facility]) [address], [place], [address], 04/10/2025 17:07:38 04/05/20 25 04/10/2025 OVA + CATHERINE ITE EXAM ova + parasite exam Final report These resul ts were obtai shana using wet prepa ratio n(s) and trich cornelius stain ed smear . This test does not inclu de testi ng for Crypt ospor idium parvu m, Cyclo spora , or Micro spori nir. Not Available [facility] ([facility]) [address], [place], [address], 04/10/2025 17:07:38 04/05/20 25 04/10/2025 OVA + CATHERINE ITE EXAM result 1 COMMEN T No ova, cysts , or catherine ites seen. One negat ivy speci men does not rule out the possi bilit y of a catherine itic infec tion. Not Available [facility] ([facility]) [address], [place], [address], 04/10/2025 17:07:38 05/15/20 25 05/16/2025 PROT+ CREAT U (RAND OM) creatinine, urine 18.7 mg/dL not estab. normal Not Available [facility] ([facility]) [address], [place], [address], 05/16/2025 14:08:37 05/15/20 25 05/16/2025 PROT+ CREAT U (RAND OM) protein,tota l,urine 9.9 mg/dL not estab. normal Not Available [facility] ([facility]) [address], [place], [address], 05/16/2025 14:08:37 05/15/20 25 05/16/2025 PROT+ CREAT U (RAND OM) protein/crea t ratio 529 mg/g_ creat 0-200 above high normal Not Available [facility] ([facility]) [address], [place], [address], 05/16/2025 14:08:37 08/17/20 24 08/12/2024 LDCT, chest , for lung cance r scree fidelia No observ ation record ed. [email or web address] [address], [place], [address], 08/19/2024 17:29:27 12/15/19 25 12/14/2024 DEXA No observ ation record ed. [address], [place], [place], [address], 02/16/2025 16:52:27 12/17/19 25 12/14/2024 MAMMO , scree fidelia, digit al, bilat eral No observ ation record ed. [email or web address] [address], [place], [address], 02/16/2025 16:52:27 Result Notes None recorded. Problems Name Problem SNOMED Code Status Onset Date Resolution Date Notes Provider Name and Address Organization Details Recorded Time Hyperten sive disorder 14867209 Completed 201709/06/2018 Problem Code: I10; Problem Code Type: ICD-10; Not Available [facility] 2 22:07:21 Benign essentia l hyperten ursula 5978244 Active 2017 Problem Code: 401.1; Problem Code Type: ICD-9; Not Available [facility] 3 14:04:28 Gastroes ophageal reflux disease without esophagi tis 569902225 Completed 201707/23/2022 JERAMY miller, [employer] 2 10:14:22 Idiopath ic osteoart hritis 139748891 Active 2017 Problem Code: M15.0; Problem Code Type: ICD-10; Not Available [facility] 3 14:04:28 Abnormal weight gain 355512773 Completed 201711/05/2018 Problem Code: R63.5; Problem Code Type: ICD-10; Not Available [facility] 2 22:07:26 Vitamin D deficien 28508338 Completed 201703/01/2021 Problem Code: 268.9; Problem Code Type: ICD-9; Vani Desir, W[place] [address] [place] [address], [address] , [employer] 5 12:12:21 Gastroes ophageal reflux disease 755737099 Completed 201703/01/2021 Problem Code: 530.81; Problem Code Type: ICD-9; Not Available [facility] 2 22:07:32 Mixed hyperlip idemia 563245001 Completed 201703/01/2021 Problem Code: 272.2; Problem Code Type: ICD-9; Not Available [facility] 2 22:07:36 Osteoart hrosis involvin g multiple sites but not designat ed as generali zed 81196932 Completed 201703/01/2021 Problem Code: 715.89; Problem Code Type: ICD-9; Not Available [facility] 2 22:07:36 Tenderne ss of left lower quadrant of abdomen 771109196 Completed 201710/08/2018 Problem Code: R10.814; Problem Code Type: ICD-10; Not Available On license of [facility] 2 22:07:24 Urinary tract infectio us disease 53414351 Completed 201711/23/2018 Problem Code: N39.0; Problem Code Type: ICD-10; JERAMY COOK null, [employer] 2 10:14:22 Generali zed abdomina l pain 225559739 Completed 201710/08/2018 Problem Code: 789.07; Problem Code Type: ICD-9; Not Available On license of [facility] 2 22:07:34 Urinary tract infectio us disease 21883811 Completed 201812/07/2018 Problem Code: N39.0; Problem Code Type: ICD-10; JERAMY COOK null, [employer] 2 10:14:22 Non-toxi c uninodul ar goiter 896781260 Completed 201811/19/2020 Problem Code: E04.1; Problem Code Type: ICD-10; Not Available On [facility] of [facility] 2 22:07:20 Screenin g mammogra phy Completed 201807/20/2019 Problem Code: Z12.31; Problem Code Type: ICD-10; JERAMY COOK null, [employer] 2 10:14:22 Influenz a vaccine needed [id number] 06 Completed 201807/23/2022 Problem Code: Z23; Problem Code Type: ICD-10; JERAMY COOK null, [employer] 2 10:14:21 General examinat ion of patient Completed 201803/01/2021 JERAMY COOK null, [employer] 2 10:14:22 Body mass index 30+ - obesity 759118939 Completed 201808/19/2020 Problem Code: Z68.30; Problem Code Type: ICD-10; Not Available [facility] 2 22:07:35 Nicotine dependen ce 61760329 Active 2018 Problem Code: F17.200; Problem Code Type: ICD-10; Not Available [facility] 3 14:04:28 Urinary tract infectio us disease 05531950 Completed 201807/23/2022 Problem Code: N39.0; Problem Code Type: ICD-10; JERAMY KERWINNEAR null, [employer] 2 10:14:22 Dysuria 08678150 Completed 201807/23/2022 Problem Code: R30.0; Problem Code Type: ICD-10; JERAMY MYNEAR null, [employer] 2 10:14:22 Body mass index 30+ - obesity 780197106 Active 2018 Problem Code: Z68.30; Problem Code Type: ICD-10; Not Available [facility] 3 14:04:28 Chronic pain 50269749 Completed 201808/19/2020 Problem Code: G89.29; Problem Code Type: ICD-10; Not Available [facility] 2 22:07:20 Urinary tract infectio us disease 38774633 Completed 201808/19/2020 Problem Code: N39.0; Problem Code Type: ICD-10; JERAMY KERWINNEAR null, [employer] 2 10:14:22 Edema 220931377 Completed 201807/23/2022 JERAMY KERWINNEAR null, [employer] 2 10:14:22 Pyrexia of unknown origin 3720205 Completed 201808/19/2020 Problem Code: R50.9; Problem Code Type: ICD-10; JERAMY MYNEAR null, [employer] 2 10:14:22 Body mass index 30+ - obesity 024993371 Completed 201909/25/2020 Problem Code: Z68.32; Problem Code Type: ICD-10; Not Available On [facility] of [facility] 2 22:07:35 Helicoba cter blood test finding 292395259 Completed 201908/19/2020 Problem Code: B96.81; Problem Code Type: ICD-10; Not Available On [facility] of [facility] 2 22:07:19 Hypothyr oidism 28772379 Active 2019 Not Available [facility] 3 14:04:28 Mixed hyperlip idemia 412841215 Active 2019 Problem Code: E78.2; Problem Code Type: ICD-10; Not Available [facility] 3 14:04:28 Vitamin D deficien cy 35783531 Active 2019 Problem Code: E55.9; Problem Code Type: ICD-10; Vani Desir, [employer] [address] [place] [address], [address] [facility] [employer] 5 12:12:21 Hyperten sive disorder 14967172 Active 2019 Problem Code: I10; Problem Code Type: ICD-10; Not Available On [facility] of [facility] 3 14:04:28 Urinary tract infectio us disease 50282343 Completed 201908/19/2020 Problem Code: N39.0; Problem Code Type: ICD-10; JERAMY COOK null, [employer] 2 10:14:22 Dysuria 38993078 Completed 201908/19/2020 Problem Code: R30.0; Problem Code Type: ICD-10; JERAMY COOK null, [employer] 2 10:14:22 Dysuria 91333913 Completed 201908/19/2020 Problem Code: R30.0; Problem Code Type: ICD-10; JERAMY SURESHNEAR null, [employer] 2 10:14:22 Urinary tract infectio us disease 56936879 Completed 201908/19/2020 Problem Code: N39.0; Problem Code Type: ICD-10; JERAMY RUIZR null, [employer] 2 10:14:22 Influenz a vaccine needed [id number] 06 Completed 201908/19/2020 Problem Code: Z23; Problem Code Type: ICD-10; JERAMY SURESHLIDIA angela, [employer] 2 10:14:21 Acute bronchit is 28548036 Completed 201909/25/2020 Problem Code: J20.9; Problem Code Type: ICD-10; Not Available [facility] 22:07:21 Tobacco dependen ce caused by cigarett es 89055235128 374141 Active 2019 Problem Code: F17.210; Problem Code Type: ICD-10; Vani Desir, [employer] [address] [place] [address], [address] , [employer] 5 08:33:39 Epigastr ic pain 54606943 Completed 201907/23/2022 Problem Code: R10.13; Problem Code Type: ICD-10; JERAMY SURESHLIDIA angela, [employer] 2 10:14:22 General examinat ion of patient Completed 201903/01/2021 JERAMY KERWINLIDIA angela, [employer] 2 10:14:22 Body mass index 30+ - obesity 451383466 Completed 201903/01/2021 Problem Code: Z68.32; Problem Code Type: ICD-10; Not Available [facility] 2 22:07:30 Otitis externa of left ear 67222588100 11161 Completed 202007/23/2022 Problem Code: H60.332; Problem Code Type: ICD-10; JERAMY KERWINLIDIA miller, [employer] 2 10:14:21 Finding of general energy 683265138 Completed 202002/15/2021 Problem Code: R53.83; Problem Code Type: ICD-10; Not Available [facility] 2 22:07:26 Screenin g mammogra phy Completed 202002/15/2021 Problem Code: Z12.31; Problem Code Type: ICD-10; JERAMY MYNEAR null, [employer] 10:14:22 Chronic obstruct ivy pulmonar y disease 77835679 Active 2020 Problem Code: J44.9; Problem Code Type: ICD-10; Vani Desir, [employer] [address] [place], [address] , [employer] 08:33:07 Acute exacerba tion of chronic obstruct ivy pulmonar y disease 837205417 Completed 202006/27/2021 Problem Code: J44.1; Problem Code Type: ICD-10; Not Available [facility] of [facility] 22:07:22 Acute exacerba tion of chronic obstruct ivy pulmonar y disease 406035395 Completed 202006/27/2021 Problem Code: J44.1; Problem Code Type: ICD-10; Not Available [facility] 22:07:21 Acute respirat ory infectio ns 588286381 Completed 202007/23/2022 Problem Code: J22; Problem Code Type: ICD-10; JERAMY KERWINNEAR null, [employer] 10:14:22 Spasm 84743749 Completed 202006/27/2021 Problem Code: M62.838; Problem Code Type: ICD-10; Not Available [facility] of [facility] 22:07:22 Urinary tract infectio us disease 45661566 Completed 202006/27/2021 Problem Code: N39.0; Problem Code Type: ICD-10; JERAMY MYNEAR null, [employer] 10:14:22 Dysuria 89053809 Completed 202006/27/2021 Problem Code: R30.0; Problem Code Type: ICD-10; JERAMY MYNEAR null, [employer] 2 10:14:22 Acute pyelonep hritis 26687554 Completed 202007/23/2022 Problem Code: N10; Problem Code Type: ICD-10; JERAMY SURESHNEAR null, [employer] 2 10:14:22 Hypokale tony 74627913 Completed 202007/23/2022 Problem Code: E87.6; Problem Code Type: ICD-10; JERAMY KERWINNEAR null, [employer] 2 10:14:22 Pyrexia of unknown origin 4326592 Completed 202007/23/2022 Problem Code: R50.9; Problem Code Type: ICD-10; JERAMY SURESHNEAR null, [employer] 2 10:14:22 Screenin g mammogra phy Completed 202107/23/2022 Problem Code: Z12.31; Problem Code Type: ICD-10; JERAMY KERWINNEAR null, [employer] 2 10:14:22 Neoplasm of uncertai n behavior of skin 99377522 Completed 202107/23/2022 Problem Code: D48.5; Problem Code Type: ICD-10; JERAMY SURESHNEAR null, [employer] 2 10:14:22 General examinat ion of patient Completed 202107/23/2022 JERAMY KERWINNEAR null, [employer] 2 10:14:21 Spinal stenosis of lumbar region 66374143 Active 2021 Problem Code: M48.062; Problem Code Type: ICD-10; Not Available [employer] 3 14:04:28 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 4 15:00:01 Radha adanen ursula 68637011 Active 2024 Vani Desir APRN [address] [place], [address] , [employer] 5 08:32:57 Chronic diarrhea of unknown origin 25196366 Active 2024 Vani Desir APRN [address] [place], [address] , [employer] 5 11:57:55 Abnormal weight loss 166739086 Active 2024 Vani Desir APRN [address] [place], [address] , [employer] 5 11:58:09 Polyp of nasal cavity and/or nasal sinus 895312046 Active 2024 Vani Desir, WILSON [address] [place], [address] , [employer] 5 11:59:56 Strictur e of esophagu s 50103923 Active 2024 Vani Desir APRN [address] [place] [address], [address] , [employer] 5 12:09:32 Problem Notes None recorded. Procedures Surgical History Date Name Laterality Status Provider Name and Address Organization Details Recorded Time 12/15/19 25 Most Recent Mammogram completed JERAMY COOK [employer] 04/03/2025 11:38:34 08/06/20 18 cholecystectomy completed Not Available [facility] 06/03/2022 22:56:07 08/06/20 18 hysterectomy completed Not Available [facility] 06/03/2022 22:56:09 08/06/20 18 section completed Not Available [facility] 06/03/2022 22:56:11 Carpal Tunnel Surgery completed JERAMY [employer] 07/23/2022 10:17:49 Back Surgery completed [facility] 07/23/2022 10:18:01 Imaging Results None recorded. Procedure Notes None recorded. Medical Equipment None Reported. Allergies Allergen ID Allergen Name Allergen Category Reaction Reaction Severity Criticality Documentation Date Start Date Code Code System Note Provider Name and Address Organization Details Recorded Time 64509 Acetamino phen / Propoxyph alona medicatio n Not available Not available Not available 06/03/2022 50543 RxNorm JENNA STERLING angela, [employer] 15:58:26 79501 famotidin e medicatio n Not available Not available Not available 06/03/2022 4278 RxNorm fatig ue Not Available On license of [facility] 22:55:10 Medications Name Sig Start Date Stop [...] Available Not Avai lable nitrofura ntoin macrocrys cisco 50 mg capsule take 1 capsule (50 [...] 2 times per day for 10 days 03/25 completed Not Available Not Available Not Available triamcino lone acetonide 40 mg/mL suspensio n for injection Take 1 mL by injectio n route. 06/15 completed Not Available Not Available Not Available pantopraz ole 40 mg tablet,de layed release take 1 tablet (40 mg) by oral route 2 times per day 11/19 completed Not Available Not Available Not Available nitrofura ntoin macrocrys cisco 100 mg capsule TAKE ONE CAPSULE BY [...] height Body mass index (BMI) Body weight Heart rate Oxygen saturation Oxygen saturation in Arterial blood by Pulse oximetry Systolic And Diastolic Provider Name and Address Organization Details Last Updated DateTime 5 162.56 cm 25.4 kg/m2 26084.6 7 g 65 /min 98 % 98 % 126/73 mm[Hg] Monik Lua [facility] [employer] 5 10:53:37 Date Recorded Body height Body mass index (BMI) Body weight Body temperature Heart rate Oxygen saturation Oxygen saturation in Arterial blood by Pulse oximetry Systolic And Diastolic Provider Name and Address Organization Details Last Updated DateTime 5 162.56 cm 23.7 kg/m2 83717.7 5 g 98 [degF] 67 /min 91 % 91 % 125/53 mm[Hg] JERAMY MYNEAR [employer] 5 11:38:01 Date Recorded Body height Body mass index (BMI) Body weight Body temperature Heart rate Oxygen saturation Oxygen saturation in Arterial blood by Pulse oximetry Systolic And Diastolic Provider Name and Address Organization Details Last Updated DateTime 4 162.56 cm 26.9 kg/m2 63759.5 7 g 98.1 [degF] 68 /min 91 % 91 % 132/78 mm[Hg] Perri Coates [employer] 4 14:28:15 Date Recorded Body height Body mass index (BMI) Body weight Body temperature Heart rate Oxygen saturation Oxygen saturation in Arterial blood by Pulse oximetry Systolic And Diastolic Provider Name and Address Organization Details Last Updated DateTime 5 162.56 cm 24 kg/m2 27757.2 1 g 97 [degF] 57 /min 94 % 94 % 129/63 mm[Hg] JERAMY SURESHNEAR [employer] 5 08:25:12 Date Recorded Body height Body mass index (BMI) Body weight Body temperature Heart rate Oxygen saturation Oxygen saturation in Arterial blood by Pulse oximetry Systolic And Diastolic Provider Name and Address Organization Details Last Updated DateTime 4 162.56 cm 25.5 kg/m2 02282.8 3 g 97.8 [degF] 68 /min 92 % 92 % 126/57 mm[Hg] JERAMY KERWINNEAMike [employer] 4 08:27:10 Social History Question Answer Notes LastModified by Organizat ion Details LastModified Time Tobacco Smoking Status Current Every Day Smoker Neena miller [employer] 12/04/2022 09:30:12 Do You Have An Advance Directive? No Information n ot available 07/23/2022 Is Your Home Air Conditioned? Yes Information not available 07/23/2022 Are You Blind Or Do You Have Difficulty Seeing? No Information n ot available 07/23/2022 What Is Your Level Of Caffeine Consumption? Heavy [email or web address] Information not available 05/28/2023 In The 14 [...] Do You Have A Medical Power Of Suction Worker? No Information not available 07/23/2022 What Was [...] Functional Status Question Answer Note LastModified by [employer] ion Details LastModified Time Do you use [...] API-27 Not available 2022 08:21:10 Brother Asthma [email or web address] Not availa ble 05/28/2023 10:43:15 Father Myocardial infarction 50 API-27 Not available 06/04 08:21:10 Medical History Condition Response Emergency room visit since last appointm ent. N COPD Y Hypothyroidism Y High Cholesterol Y Hospitalizations N Hypertension Y Gynecological History Statement/Question Response Date of Last Pap Smear Most Recent Mammogram 12/14/2024 Obstetrics History GPAL:G 0 P 0 0 0 0 Immunizations Vaccine Type Date Status Note Provider Nam e and Address Organization Details Recorded Time zoster recombinant 3 completed Vani Desir APRN [address] [place] [address], [address], [employer] 01/23/2023 12:46:24 Influenza, high-dose, quadrivalent, PF 3 completed Vani Desir APRN [address] [place] [address], [address], [employer] 07/20/2023 15:48:29 zoster recombinant 4 completed Vani Desir APRN [address] [place] [address], [address], [employer] 10/20/2023 13:46:57 Influenza, split virus, quadrivalent, PF 2 completed JENNIFER miller, [employer] 07/18/2022 10:03:38 Influenza, high-dose, trivalent, PF 4 completed Vani Desir APRN [address] [place] [address], [address], [employer] 08/07/2024 20:26:10 COVID-19, mRNA, LNP-S, PF, 100 mcg/0.5mL dose or 50 mcg/0.25mL dose 2 completed Not Available [facility] 07/21/2023 14:04:28 COVID-19 vaccine, vector-nr, rS-ChAdOx1, PF, 0.5 mL 1 completed Not Available [facility] 07/21/2023 20:29:27 COVID-19 vaccine, vector-nr, rS-ChAdOx1, PF, 0.5 mL 1 completed Not Available [employer] 07/21/2023 20:29:27 Influenza, split virus, quadrivalent, preservative 8 completed Not Available [facility] 07/21/2023 14:04:28 Influenza, split virus, quadrivalent, PF 1 completed [facility] Available [facility] 07/21/2023 14:04:29 Influenza, split virus, quadrivalent, PF 0 completed Not Available [facility] 07/21/2023 14:04:28 Influenza, MDCK, quadrivalent, preservative 9 completed Not Available [facility] 07/21/2023 14:04:28 pneumococcal polysaccharide PPV23 8 completed Not Available [facility] 07/21/2023 14:04:28 RSV, recombinant, protein subunit RSVpreF, adjuvant reconstituted, 0.5 mL, PF 5 completed Vani Desir APRN [address] [place] [address], [address], [employer] 12/26/2024 12:33:15 COVID-19, mRNA, LNP-S, PF, 100 mcg/0.5mL dose or 50 mcg/0.25mL dose 1 completed Not Available [facility] 07/21/2023 14:04:28 COVID-19, mRNA, LNP-S, PF, 100 mcg/0.5mL dose or 50 mcg/0.25mL dose 1 completed Not Available [facility] 07/21/2023 14:04:28 COVID-19, mRNA, LNP-S, PF, 100 mcg/0.5mL dose or 50 mcg/0.25mL dose 1 completed Not Available [facility] 07/21/2023 14:04:28 Influenza, high-dose, trivalent, PF 5 completed Vani Desir APRN [address] [place], [address], [employer] 07/04/2025 08:39:06 COVID-19, mRNA, LNP-S, bivalent, PF, 30 mcg/0.3 mL dose 2 completed JENNIFER miller, [employer] 08/19/2022 09:32:19 COVID-19, mRNA, LNP-S, PF, 50 mcg/0.5 mL 3 completed [facility]er [facility] 04/14/2024 14:28:31 COVID-19, mRNA, LNP-S, PF, ernie-sucrose, 30 mcg/0.3 mL 4 completed Not Available On license of [facility] 07/04/2025 08:17:04 Past Encounters Encounter ID Performer Location Encounter Start Date Encounter Closed Date Diagnosis/Indication Diagnosis SNOMED-CT Code Diagnosis ICD10 Code Diagnosis IMO Codes Diagnosis Note [id number] [place] [address] 07/18/2022 09:39:56 07/18/2022 10:06:07 Influenza vaccine needed 8499385347 106 Z23 [id number] [place] [address] 07/23/2022 10:05:01 07/23/2022 11:14:58 Hypothyroidism 09710383 E03.9 Mixed hyperlipidemia 267 456373 E78.2 Hypertensive disorder 38 491767 I10 Diet, weight loss and aerobic exercise were encouraged . Smoking cessation highly recommende d. Vitamin D deficiency 347 85724 E55.9 Chronic ob structive pulmonary disease 03256357 J44.9 [id number] [place] [address] 08/19/2022 08:47:22 08/19/2022 09:39:22 Administration of SARS-CoV-2 antigen vaccine 427010312 Z23 [id number] [place] [address] 01/19/2023 09:28:30 01/19/2023 12:18:13 Benign essential hypertension 3463014 I10 Hydrate, avoid nsaids, DASH diet encouraged Chronic ob structive pulmonary disease 04754935 J44.9 Hypothyroidism 94963071 E03.9 Mixed hyperlipidemia 267 845046 E78.2 Low fat diet and continue statin therapy Vitamin D deficiency 347 25864 E55.9 Spinal gila nosis of lumbar region 54360804 M48.062 Adult heal th examination 941430489 Z00.00 Body mass index 30+ - obesity 679552640 Z68.31 Tobacco de pendence caused by cigarettes 5105443354 0687854 F17.210 Needs LDCT, continues to smoke 1 ppd for 53 years for 53 total pack years Active or passive immunization 724287793 Z23 Screening for malignant neoplasm of respiratory tract 026128235 Z12.2 [id number] Vani Desir[address] 0 04/03/2023 11:38:21 04/03/2023 12:22:08 Essential hypertension 63503780 I10 Hold amlodipine , increase losartan to BID, trial of low dose Lasix for one week. RTC in 1 week for recheck. Low salt diet and daily use of GAGAN hose explained. Dependent edema 80512969 4 R60.0 EKG NSR. [id number] Vani Desir[address] 0 04/10/2023 08:17:53 04/10/2023 09:08:26 Essential hypertension 25010176 I10 Valsartan 160 mg daily, stop smoking, dash diet, use gagan hose daily. Edema 187689560 R60.9 Low dose lasix only rare prn use for dependent edema. [id number] [place] [address] 05/28/2023 10:36:12 05/28/2023 13:54:27 Hypertensive disorder 07388539 I10 [id number] [place] [address] 06/04/2023 08:21:09 06/04/2023 09:20:17 Benign essential hypertension 0396995 I10 [id number] Vani Desir[address] 0 06/10/2023 09:55:33 06/10/2023 10:47:56 Right lower zone pneumonia 407198709 J18.1 I suspect she has a postviral right lower lobe pneumonia with an overlying COPD exacerbati on. I am concerned if she does not improve over the next 24 hours that she may require hospitaliz ation. She was instructed on controllin g her fever, using her nebulizer 4 times per day, using Mucinex twice per day, increasing oral fluids, and rest. She is to begin antibiotic and steroid therapy today. I will see her back for close follow-up in 4 days. I did have a long discussion with her that should her symptoms progress that she will need to call 911 or go to the emergency room for further evaluation . Acute exac erbation of chronic obstructive pulmonary disease 783706403 J44.1 [id number] Vani Desir[address] [address] 06/15/2023 11:17:51 06/15/2023 13:12:26 Pneumonia 452322414 J18.9 Complete the entire course of the cefdinir, continue scheduled nebs 4 times daily and expectoran ts twice daily. Smoking cessation was again encouraged . Essential hypertension 96624303 I10 Valsartan 320 mg daily, stop smoking, dash diet, use gagan hose daily. Stop lisinopril , we cannot take an LILIAM and ARB together. Start hydralazin e 25 mg TID. [id number] Vani Desir[address] [address] 07/20/2023 11:16:55 07/20/2023 11:45:24 Administration of influenza vaccine 03124239 Z23 Essential hypertension 67239381 I10 Continue DASH diet, avoiding nsaids and hydrating well. Hypothyroidism 63305104 E03.9 Mixed hyperlipidemia 267 972946 E78.2 Low fat diet and continue statin therapy Vitamin D deficiency 347 20410 E55.9 Tobacco de pendence caused by cigarettes 2941234724 6585687 F17.210 LDCT UTD, continues to smoke 1 ppd for 53 years for 53 total pack years [id number] Vani Desir[address] [place] [address] 10/20/2023 12:31:04 10/20/2023 13:41:46 Active or passive immunization 293486764 Z23 Essential hypertension 97849454 I10 Continue DASH diet, avoiding nsaids and hydrating well. Postcholec ystectomy syndrome 92299236 K91.5 Trial Colestid. Screening mammography 24 557939 Z12.31 Mixed hyperlipidemia 267 419363 E78.2 Low fat diet and continue statin therapy Body mass index 25-29 - overweight 493861964 Z68.29 Tobacco de pendence caused by cigarettes 3821763906 3431876 F17.210 Smoking cessation again emphasized . [id number] [place] [address] 02/16/2024 10:39:38 02/16/2024 11:11:28 Chronic kidney disease stage 3 379733423 N18.30 No med changes today. Keep upcoming appt with Nephro. Continue to avoid NSAIDS, hydrate, and manage HTN. Hypertensive disorder 38 996547 I10 Diet, weight loss and aerobic exercise were encouraged . Smoking cessation highly recommende d. Body mass index 25-29 - overweight 611981326 Z68.29 Healthy diet and exercise encouraged . Tobacco de pendence caused by cigarettes 3495265907 8239004 F17.210 Smoking cessation again emphasized . [id number] Jena Elise NP [place] [address] 04/14/2024 14:14:22 04/14/2024 17:52:40 Bilateral lower limb edema 494684570 R60.0 Essential hypertension 51250461 I10 [id number] Vani Desir APRN [address] 08/02/2024 08:04:35 08/02/2024 08:52:03 Administration of influenza vaccine 64513760 Z23 Chronic ki dney disease stage 3 868790987 N18.30 No med changes today. Keep upcoming appt with Nephro. Continue to avoid NSAIDS, hydrate, and manage HTN. Chronic ob structive pulmonary disease 34900345 J44.9 Continue nebs. Smoking cessation again encouraged . Hypertensive disorder 38 211215 I10 Diet, weight loss and aerobic exercise were encouraged . Smoking cessation highly recommende d. Hypothyroidism 07300210 E03.9 Vitamin D deficiency 347 00311 E55.9 Screening for malignant neoplasm of respiratory tract 928390171 Z12.2 Tobacco de pendence caused by cigarettes 5627215903 5387740 F17.210 Smoking cessation again emphasized . Suprapubic pain 18616243 6 R10.30 Body mass index 25-29 - overweight 371018034 Z68.29 Healthy diet and exercise encouraged . [id number] Vani Desir[address] [address] 11/30/2024 10:46:49 11/30/2024 11:26:57 Adult health examination 853516601 Z00.00 Patient presented to office today for their Medicare Annual Wellness Visit. Education was provided on healthy nutrition, including a diet rich in fruits and vegetables , minimizing simple carbohydra barb, salt, and saturated fats. Encouraged regular cardiovasc ular exercise such as walking at least 30 minutes daily, 5 times per week. Emphasized preventive health measures and educated pt on fall prevention and community- based lifestyle interventi ons to help reduce health risks and promote healthy living. Chronic ki dney disease stage 3 349181497 N18.30 No med changes today. Keep upcoming appt with Nephro. Continue to avoid NSAIDS, hydrate, and manage HTN. Vitamin D deficiency 347 18015 E55.9 Hypomagnesemia 121804459 E83.42 Previous low mag due to diuretic use. Screening mammography 24 982478 Z12.31 Screening for malignant neoplasm of respiratory tract 870371921 Z12.2 Screening for osteoporosis 146009736 Z13.820 Tobacco de pendence caused by cigarettes 8130547442 7953890 F17.210 Smoking cessation again emphasized . Body mass index 25-29 - overweight 131919920 Z68.29 Healthy diet and exercise encouraged . Essential hypertension 91326017 I10 Continue DASH diet, avoiding nsaids and hydrating well. Chronic ob structive pulmonary disease 75718506 J44.9 Continue nebs. Smoking cessation again encouraged . Active or passive immunization 269377222 Z23 [id number] Vani Desir[address] [place] [address] 04/03/2025 11:28:23 04/03/2025 12:19:11 Essential hypertension 03127689 I10 Continue DASH diet, avoiding nsaids and hydrating well. Chronic di arrhea of unknown origin 67839089 K52.9 9097 Obtain labs and stool studies. Refer for dx colonoscop y due to duration of sx and unexplaine d weight loss. I may consider an ABD CT pending her renal function lab results today. Chronic ki dney disease stage 3 000300532 N18.30 No med changes today. Keep upcoming appt with Nephro. Continue to avoid NSAIDS, hydrate, and manage HTN. Abnormal weight loss 267 691018 R63.4 005102 MVI daily recommende d. Polyp of n francisco javier cavity and/or nasal sinus 703096268 J33.9 17698 Refer to ENT. Stricture of esophagus 11191378 K22.2 27133 Refer for EKG - likely needs esophageal dilation again. SHe is a smoker. Vitamin D deficiency 347 79368 E55.9 61551 Tobacco de pendence caused by cigarettes 5797021933 2652265 F17.210 Smoking cessation again emphasized . [id number] [place] [address] 07/04/2025 07:54:43 07/04/2025 08:50:12 Influenza vaccination given 5737365769 9109 Z23 03739326 Essential hypertension 44106819 I10 Continue DASH diet, avoiding nsaids and hydrating well. Chronic ob structive pulmonary disease 62273103 J44.9 Continue nebs. Smoking cessation again encouraged . Tobacco de pendence caused by cigarettes 8623334593 5068522 F17.210 Smoking cessation again emphasized . Mixed hyperlipidemia 267 574670 E78.2 Low fat diet and continue statin therapy Health Concerns Section Related Observation LastModified by Organization Detai ls LastModified Time None Recorded Concern Status LastModified by Organization Details LastModified Time None Recorded Advance Directives Directive N: Payers Insurance Date Sequence Insurance Name Policy Number Policy Robison Covered Member ID Robison Member ID Guarantor Name 07/01/2025 [place] [facility] Lia Alberts [id number] Lia Alberts 07/01/2025 [place] Lia Alberts [id number] Lia Alberts 07/01/2025 1 [place]MEDIC[place]PLACEMENT HMO) [id number] Lia Alberts [id number] Lia Alberts 10/20/2023 1 [employer] (MEDICARE REPLACEMENT/AD VANTAGE - HMO) Lia Alberts [id number] Lia Alberts Notes Date Note Type Note Provider Name and Address Organization Details Recorded Time 04/14/20 24 text/htm l Patient presents for swelling of bilateral feet and ankles. Has had bilateral foot and ankle swelling for the last month. It resolves after lying down. She has had no pain. She treats with nephrology and cardiology.Sees nephrology in SeptemberSees cardiology next monthShe does not have any n/t or pain. She has not had any chest pain or shortness of breath. She does not have any dizziness. She takes lasix 20 mg once per day. She has compression stockings but does not wear them. Jena Elise, TYRESE [address] [place] [address], [address], [facility] [employer] 04/16/2024 11:04:39 08/02/20 24 text/htm l HypothyroidReported by PatientHPIFor associated symptoms, patient reportsfatigueandedemabut reportsno weakness,no lightheadedness,no cold intolerance,no constipation,no weight gain,no involuntary weight loss,normal mood,no pain,no dry/coarse skin,no deepening of the voice,no hoarseness,no goiter,no mass detected,no chest pain, andno palpitations. For reason for visit, patient reportstsh check/labs. For duration, patient reports>12 months. Hypertension F/UReported by PatientHPIFor lifestyle, patient reportsnot exercising regularlyanddoes not adhere to low sodium diet. For associated symptoms, patient reportsshortness of breathandedema (trace)but reportsno dizziness,no lightheadedness,no chest pain,no palpitations,no calf pain with exertion, andno headache. For medications, patient reportstaking medications as directed,no side effects from medication, andchecks blood pressure at home, range: (130/75).ROS as noted in the HPI Has CKD stage 3. Osteoarthritis. Smoker with COPD. Continues to see Cardiology. Has had recent low mag levels due to diuretic use, but her edema is improved. She has mild suprapubic pain today with dysuria for 2 days. Hx Vit D def. Vani Desir, [employer] [address] [place], [address], [facility] [employer] [facility] 08/07/2024 20:30:14 12/01/19 25 text/htm l Medicare Annual Wellness VisitReported by PatientSocial/Behavioral HistoryFor diet and nutrition, patient reportsdiet is high in saltbut reportsdiscussed vitamin and supplement use,discussed portion control,discussed maintaining calcium balance, anddiscussed diet improvement. For physical activity, patient reportsdoes not exercise on a regular basisbut reportsdiscussed weightbearing activities. For fracture risk, patient reportsno history of fracturesandno recent explained fracture.Mental Status:For depression risk, patient reportsnever feels sad, empty, or tearful,no loss of interest in activities,no significant changes in weight,no sleep disturbances or insomnia,no agitation,no loss of energy,no feelings of worthlessness or guilt,no thoughts of suicide,no history of depression, andno history of mood disorders. For orientation, patient reportsno disorientation to time,no disorientation to date, andno disorientation to place. For concentration and memory, patient reportsno decreased concentrating ability,no memory lapses or loss, anddoes not forget words. For speech/motor difficulties, patient reportsno speech difficulties,no difficulty expressing formulated concepts,no difficulty with fine manipulative tasks,no difficulty writing/copying,no slowed reaction time, anddoes not knock things over when trying to pick them up.Functional AbilityFor hearing, patient reportsdifficulty hearing over background noiseandrequires tv, radio at high volume. For vision, patient reportsno vision problems. For activities of daily living, patient reportsable to bathe with limited or no assistance,able to contol urination and bowels,able to dress with limited or no assistance,able to feed self with limited or no assistance,able to get out of chair or bed with limited or no assistance,able to groom with limited or no assistance, andable to toilet with limited or no assistance. For instrumental activities of daily living, patient reportsable to do house work with limited or no assistance,able to grocery shop with limited or no assistance,able to manage medications with limited or no assistance,able to manage money with limited or no assistance,able to prepare meals with limited or no assistance, andable to use the phone with limited or no assistance. For falls risk assessment, patient reportsno frequent falls while walking,no fall in the past year,no fall since last visit, andno dizziness/vertigo. For home safety, patient reportsno unsafe armani hazzards,no unsafe stairs,no unsafe gas appliances,working smoke/co detectors,use of seatbelts,has hand bars in the bathroom/shower,good lighting in the home, andreviewed sun protection. HypothyroidReported by PatientHPIFor associated symptoms, patient reportsfatigueandedemabut reportsno weakness,no lightheadedness,no cold intolerance,no constipation,no weight gain,no involuntary weight loss,normal mood,no pain,no dry/coarse skin,no deepening of the voice,no hoarseness,no goiter,no mass detected,no chest pain, andno palpitations. For reason for visit, patient reportstsh check/labs. For duration, patient reports>12 months. Hypertension F/UReported by PatientHPIFor lifestyle, patient reportsnot exercising regularlyanddoes not adhere to low sodium diet. For associated symptoms, patient reportsshortness of breathandedema (trace)but reportsno dizziness,no lightheadedness,no chest pain,no palpitations,no calf pain with exertion, andno headache. For medications, patient reportstaking medications as directed,no side effects from medication, andchecks blood pressure at home, range: (130/75).ROS as noted in the HPI Has CKD stage 3. Osteoarthritis. Smoker with COPD. Continues to see Cardiology. Has had recent low mag levels due to diuretic use, but her edema is improved. Hx Vit D def. Vani Desir, [employer] [address] [facility], [place], [id number], [facility] [employer] 12/26/2024 12:38:55 04/03/20 25 text/htm l Hypertension F/UReported by PatientHPIFor lifestyle, patient reportsnot exercising regularlyanddoes not adhere to low sodium diet. For associated symptoms, patient reportsshortness of breathandedema (trace)but reportsno dizziness,no lightheadedness,no chest pain,no palpitations,no calf pain with exertion, andno headache. For medications, patient reportstaking medications as directed,no side effects from medication, andchecks blood pressure at home, range: (130/75).ROS as noted in the HPI Has CKD stage 3 - followed by Nephrology. Osteoarthritis. Smoker with COPD. Continues to see Cardiology. Hx Vit D deficiency. Radha presents with her daughter today and states that she has not felt well for a significant period of time. She is pale today. She admits that due to the heat recently and the fact that she does not have air conditioning she has felt worse. She has had significant diarrhea without melena or localized abdominal pain for several months now. Her last colonoscopy was in 2019 and she had a couple polyps and was recommended to have a repeat colonoscopy in 5 to 10 years. She has lost 18 pounds in the past 1 year. She does have poor appetite but she states that generally what ever she eats causes her to have diarrhea. She also has a history of an esophageal stricture that remotely required dilation and she is experiencing dysphagia again. She denies nausea and vomiting and urinary symptoms. Her low-dose CT scan and mammogram have been normal within the past 1 year. Vani Desir, [employer] [address] [place], [id number], [facility] [employer] 04/03/2025 16:04:35 07/04/20 25 text/htm l ROS as noted in the HPI Chief [...] EGD performed last week, during which the senior c web developer found one polyp, and took several biopsies. [...] condition with her chronic medical issues. Vani Desir APRN [address] [facility], [place], [id number], [facility] [employer] 07/04/2025 09:22:34 OBGyn Episode No OBEpisode recorded.
== END 2025-08-10 23:59 | disposition home or self-care (01) ==
LOC: RAD 08:44
PROVIDERS: PCP Nurse Practitioner Family; Visit Provider Nurse Practitioner Family
DX: Z12.2 Encounter for screening for malignant neoplasm of respiratory organs (principal); F17.210 Nicotine dependence, cigarettes, uncomplicated; R91.1 Solitary pulmonary nodule; K22.9 Disease of esophagus, unspecified
CPT/HCPCS: 71271